=== PATIENT | female | born 1965 | race Caucasian/White ===

== ENCOUNTER 2024-11-14 06:54 | Outpatient (CLI) | payer SELFPAY ==
--- NOTE | 2024-11-14 07:00 | CT_ITS ---
PROCEDURE: LIMITED CHEST CT CARDIAC ONLY 11/14/2024 REASON FOR EXAM: ABNORMAL EKG TECHNIQUE: Procedure Code: [id number] Modality: CT Procedure: LIMITED CHEST CT CARDIAC ONLY One or more dose reduction techniques were used (e.g., Automated exposure control, adjustment of the mA and/or kV according to patient size, use of iterative reconstruction technique). RADIATION DOSE SUMMARY: CTDlvol: 12.19 mGy DLP: 219.42 mGycm COMPARISON: None. CT/Limited Chest CT Cardiac Only IMPRESSION: Limited imaging of the lungs demonstrates no acute process. No pleural effusion or pneumothorax is seen in visualized areas. No adenopathy is noted. The visualized upper abdomen demonstrates no significant abnormality. Reading Location: [id number]
--- OUTSIDE RECORDS SUMMARY | 2024-11-14 07:00 | XMS RPT_ITS | CCD ---
Author Organization [facility] Care Team Providers Care Director Of Cardiac Cath Lab Name Role Phone Ric ODD JOBS DAY WORKER.Magdy STRATTON Primary Care Provider Ric ODD JOBS DAY WORKER.Magdy STRATTON Primary Care Provider Deo Zhao DO Unavailable Ric ODD JOBS DAY WORKER.Magdy STRATTON Primary Care Provider YOUSIF CALHOUN Referring Unavailabl e RIC, MAGDY M Primary Care Unavailable RIC, MAGDY M Referring Unavailable RIC, MAGDY M Primary Care Unavailable RIC, MAGDY M Attending Unavailable RIC, MAGDY M Primary Care Unavailable RIC, MAGDY M Referring Unavailable RIC, MAGDY M Primary Care Unavailable NICOLA BARILLAS Attending Unavailable RIC, MAGDY M Primary Care Unavailable DEBORA CALVILLO Attending Unavailable RIC, MAGDY M Referring Unavailable RIC, MAGDY M Primary Care Unavailable ANGELA LICEA Referring Unavailable RIC, MAGDY M Primary Care Unavailable RIC, MAGDY M Referring Unavailable RIC, MAGDY M Primary Care Unavailable RIC, MAGDY M Referring Unavailable RIC, MAGDY M Primary Care Unavailable RIC, AMGDY M Attending Unavailable RIC, MAGDY M Primary Care Unavailable RIC, MAGDY M Referring Unavailable RIC, MAGDY M Primary Care Unavailable RIC, MAGDY M Referring Unavailable RIC, MAGDY M Primary Care Unavailable RIC, MAGDY M Referring Unavailable RIC, MAGDY M Primary Care Unavailable RIC, MAGDY M Referring Unavailable RIC, MAGDY M Primary Care Unavailable RIC, MAGDY M Primary Care Unavailable BRET BECKWITH Attending Unavailable YOUSIF CALHOUN Attending UnavailMAGDY Tao Primary Care Unavailable MAGDY LARIOS Primary Care Unavailable NATHALIA LUCIA Attending Unavailable Magdy Larios Primary Care Unavailable KATERINA GOMEZ Referring Unavailable KATERINA GOMEZ Attending Unavailable Allergies Allergy Classification Reported Allergen(s) Allergy Type Date of Onset Reaction(s) Facility (20 sources) Penicillin G; Translations: [PENICILLIN G] Drug Allergy 02-05-2013 Rash [facility] Medications Current Medications Medication Drug Class(es) Dates Sig (Normalized) Sig (Original) [id number] 200 actuat albuterol 0.09 mg/actuat metered dose inhaler (20 sources) beta2-Adrenergic Agonist Start: 03-17-2023 End: 06-10-2024 take 2 puff(s) by inhalation every four hours as needed for wheezing albuterol HFA (PROVENTIL HFA, VENTOLIN HFA) 90 mcg/actuation inhaler Indications: Wheezing Inhale 2 puffs as instructed every 4 hours as needed for wheezing/shortnes s of breath. 1 each 5 06/10/2024 Active Start: 05-06-2019 take 2 puff(s) by in halation every six hours as needed albuterol HFA (PROAIR HFA) 90 mcg/actuation inhaler 2 Puffs every 6 hours as needed. Take as directed 1 Inhaler 1 05/06/2019 Active Comment on above: 2 Puffs every 6 hour s as needed. Take as directed Inhale 2 Puffs as in structed every 4 hours as needed for wheezing/shortness of breath. cholecalciferol 0.125 mg oral tablet (20 sources) Vitamin D take 1 tablet by mouth once daily cholecalciferol (VITAMIN D3) 5,000 unit tab Take 5,000 Units by mouth once daily. Active Comment on above: Take 5,000 Units by mouth once daily. citalopram 10 mg oral tablet (20 sources) Serotonin Reuptake Inhibitor Start: 02-16-20 End: 08-08-19 take 1 tablet by mouth once daily citalopram hydrobromide (CELEXA) 10 mg tablet Indications: Anxiety TAKE 1 TABLET BY MOUTH EVERY DAY 90 tablet 1 08/07/2024 Active Start: 08-23-2022 take 1 tablet by devin th once daily citalopram hydrobromide (CELEXA) 10 mg tablet Indications: Anxiety Take 1 tablet by mouth once daily. 90 tablet 1 08/23/2022 Active Start: 04-11-2022 End: 07-19-2022 take 1 tablet by mouth once daily citalopram hydrobromide (CELEXA) 10 mg tablet Indications: Anxiety TAKE 1 TABLET BY MOUTH EVERY DAY 30 tablet 0 07/19/2022 Active Start: 04-12-2021 take 1 tablet by devin th once daily citalopram hydrobromide (CELEXA) 10 mg tablet Indications: Anxiety Take 1 tablet by mouth once daily. 90 tablet 3 04/12/2021 Active Comment on above: Take 1 tablet by devin th once daily. TAKE 1 TABLET BY DEVIN TH EVERY DAY doxycycline monohydrate 100 mg oral capsule (1 source) Tetracycline-clas s Drug Start: End: take 1 capsule by mouth twice daily doxycycline monohydrate (MONODOX) 100 mg capsule Indications: Sinobronchitis Take 1 capsule by mouth two times a day for 7 days. 14 capsule 07/14/2024 07/21/2024 Active estradiol 1 mg oral tablet (20 sources) Estrogen Start: take 1 tablet by mouth once daily estradiol (ESTRACE) 1 mg tablet Indications: Vasomotor symptoms due to menopause Take 1 tablet by mouth once daily. 90 tablet 3 09/26/2024 Active Start: 08-22-2022 End: 09-25-2023 take 1 tablet by mouth once daily estradiol (ESTRACE) 1 mg tablet Indications: Vasomotor symptoms due to menopause Take 1 tablet by mouth once daily. 90 tablet 3 09/25/2023 Active Start: 09-08-2020 End: 08-22-2022 take 2 tablets by mouth once daily Estradiol (ESTRACE) 0.5 mg tablet Take 1 mg by mouth once daily. 0 09/08/2020 08/22/2022 Discontinued (Dosage adjustment) Start: 09-08-2020 take 1 tablet by devin th once daily Estradiol (ESTRACE) 0.5 mg tablet Take 0.5 mg by mouth once daily. 0 09/08/2020 Active Comment on above: Take 0.5 mg by mouth once daily. Take 1 mg by mouth o nce daily. Take 1 tablet by devin th once daily. levothyroxine sodium 0.05 mg oral tablet (20 sources) l-Thyroxine Start: End: take 1 tablet by mouth once daily levothyroxine (SYNTHROID) 50 mcg tablet Indications: Acquired hypothyroidism TAKE 1 TABLET BY MOUTH EVERY DAY 90 tablet 3 08/07/2024 Active Start: 02-28-2022 End: 05-23-2023 take 1 tablet by mouth once daily levothyroxine (SYNTHROID) 25 mcg tablet Indications: Hypothyroidism, unspecified type Take 1 tablet by mouth once daily. 90 tablet 1 08/23/2022 05/23/2023 Discontinued Start: 05-06-2021 End: 08-30-2021 levothyroxine (SYNTHROID) 25 mcg tablet Indications: Hypothyroidism, unspecified type TAKE 1 TABLET EVERY DAY 90 tablet 1 08/30/2021 Active Comment on above: Take 1 tablet by devin th once daily. TAKE 1 TABLET EVERY DAY TAKE 1 TABLET BY DEVIN TH EVERY DAY loratadine 10 mg oral tablet (20 sources) take 1 tablet by mouth once daily as needed loratadine (CLARITIN) 10 mg tablet Take 10 mg by mouth once daily as needed. Active Comment on above: Take 10 mg by mouth once daily. Take 10 mg by mouth once daily as needed. metroNIDAZOLE 0.01 mg/mg topical gel (1 source) Nitroimidazole Antimicrobial Start: 10-27-19 End: 11-10-19 metroNIDAZOLE (METROGEL) 1 % Topical Gel Indications: Perioral dermatitis Apply to affected area once daily for 14 days. 60 g 10/26/2024 11/09/2024 Active omega-3/dha/epa/fish oil (OMEGA-3 ORAL) (20 sources) take 2000 mg by mouth once daily omega-3/dha/epa/fish oil (OMEGA-3 ORAL) Take 2,000 mg by mouth once daily. Active take 2000 mg by mouth once daily omega-3/dha/epa/fish oil (OMEGA-3 ORAL) Take 2,000 mg by mouth once daily. 0 Active Comment on above: Take 2,000 mg by devin th once daily. polymyxin b [id number] unt/ml / trimethoprim 1 mg/ml ophthalmic solution (1 source) Dihydrofolate Reductase Inhibitor Antibacterial, Polymyxin-class Antibacterial Start: 07-15-19 End: 07-20-19 take 1 drop(s) into the eye(s) three times daily polymyxin B-trimethoprim (POLYTRIM) 10,000 unit- 1 mg/mL ophthalmic solution Indications: Acute conjunctivitis of right eye, unspecified acute conjunctivitis type Use 1 drop in both eyes three times a day for 5 days. 5 mL 07/14/2024 07/19/2024 Active predniSONE 20 mg oral tablet (1 source) Start: 07-15-19 End: 07-20-19 take 1 tablet by mouth twice daily predniSONE (DELTASONE) 20 mg tablet Indications: Sinobronchitis Take 1 tablet by mouth two times a day for 5 days. 10 tablet 07/14/2024 07/19/2024 Active Completed/Discontinued Medications Medication Drug Class(es) Dates Sig (Normalized) Sig (Original) ascorbic acid 250 mg oral tablet (18 sources) Vitamin C End: 05-23-2023 take 1 tablet by mouth once daily ascorbic acid, vitamin C, (VITAMIN C) 250 mg tablet Take 250 mg by mouth once daily. 0 05/23/2023 Discontinued Comment on above: Take 250 mg by mouth once daily. ketorolac tromethamine 4 mg/ml ophthalmic solution (20 sources) Nonsteroidal Anti-inflammatory Drug, Cyclooxygenase Inhibitor Start: 09-28-2020 End: 05-23-2023 keTORolac Tromethamine (ACLUAR LS) 0.4 % drop Indications: Irritation of left eye Use 1 Drop in the left eye every 6 hours as needed. 5 mL 0 09/28/2020 05/23/2023 Discontinued Start: 09-28-2020 keTORolac Trom ethamine (ACLUAR LS) 0.4 % drop Indications: Irritation of left eye Use 1 Drop in the left eye every 6 hours as needed. 5 mL 0 09/28/2020 Active Comment on above: Use 1 Drop in the le ft eye every 6 hours as needed. Multivitamin capsule (18 sources) End: 05-23-2023 take 1 capsule by mouth once daily Multivitamin capsule Take 1 capsule by mouth once daily. 0 05/23/2023 Discontinued take 1 capsule by mouth once neptali ly Multivitamin capsule Take 1 capsule by mouth once daily. 0 Active Comment on above: Take 1 capsule by mo ut once daily. Problems Active Problems Problem Classification Problem Date Documented Da te Episodic/Chronic Anxiety disorders (20 sources) Anxiety; Translations: [Anxiety disorder, unspecified] Onset: 04-11-2021 04-11-2021 Chronic Malaise and fatigue (20 sources) Fatigue; Translations: [Chronic fatigue, unspecified] Onset: 08-22-2022 Chronic Menopausal disorders (20 sources) Menopausal flushing; Translations: [Menopausal and female climacteric states] Onset: 08-22-2022 Chronic Mood disorders (1 source) Depressive disorder; Translations: [Depression, unspecified depression type] 06-10-2024 Chronic Nutritional deficiencies (2 sources) Vitamin D deficiency; Translations: [Vitamin D deficiency, unspecified] Onset: 06-08-2024 05-30-2024 Chronic Other inflammatory condition of skin (1 source) Perioral dermatitis; Translations: [Perioral dermatitis] 10-26-2024 Chronic Other inflammatory condition of skin (1 source) Perioral dermatitis; Translations: [Perioral dermatitis] Onset: 10-26-2024 Chronic Other lower respiratory disease (1 source) Wheezing; Translations: [Wheezing] 06-10-2024 Episodic Other lower respiratory disease (7 sources) Dyspnea; Translations: [Shortness of breath] 09-16-2024 Episodic Other lower respiratory disease (1 source) Shortness of breath; Translations: [SOB (shortness of breath)] Onset: 09-16-2024 Episodic Other non-traumatic joint disorders (1 source) Bilateral pain of joint of hands; Translations: [Pain in joints of right hand] 06-10-2024 Episodic Other screening for suspected conditions (not mental disorders or infectious disease) (20 sources) Serum creatinine raised; Translations: [Other specified abnormal findings of blood chemistry] Onset: 01-31-2024 Episodic Other upper respiratory infections (2 sources) Chronic sinusitis; Translations: [Chronic sinusitis, unspecified] Onset: 07-14-2024 07-14-2024 Chronic Residual codes; unclassified (2 sources) Family history of breast cancer; Translations: [Family history of malignant neoplasm of breast] 05-23-2023 Episodic Thyroid disorders (20 sources) Hypothyroidism; Translations: [Hypothyroidism, unspecified] Onset: 08-22-2022 Chronic Past or Other Problems Problem Classification Problem Date Documented Date Episodic/Chronic Cardiac dysrhythmias (20 sources) Palpitations; Translations: [Palpitations] Onset: 01-31-2024 Episodic Chronic obstructive pulmonary disease and bronchiectasis (1 source) Bronchitis, not specified as acute or chronic; Translations: [Sinobronchitis] Onset: 07-14-2024 Episodic Conditions associated with dizziness or vertigo (20 sources) Lightheadedness; Translations: [Dizziness and giddiness] Onset: 02-04-2016 02-04-2016 Episodic Inflammation; infection of eye (except that caused by tuberculosis or sexually transmitteddisease) (2 sources) Acute conjunctivitis of right eye; Translations: [Unspecified acute conjunctivitis, right eye] Onset: 07-14-2024 07-14-2024 Episodic Other connective tissue disease (20 sources) Left rotator cuff syndrome; Translations: [Unspecified rotator cuff tear or rupture of left shoulder, not specified as traumatic] Onset: 12-16-2014 Resolved: 08-22-2022 12-16-2014 Episodic Other lower respiratory disease (1 source) Wheezing; Translations: [Wheezing] Onset: 06-10-2024 Episodic Other non-traumatic joint disorders (20 sources) Shoulder pain; Translations: [Pain in left shoulder] Onset: 12-16-2014 12-16-2014 Episodic Other non-traumatic joint disorders (20 sources) Pain in left shoulder; Translations: [Pain in joint, shoulder region] Onset: 12-16-2014 Resolved: 08-22-2022 12-16-2014 Episodic Other non-traumatic joint disorders (1 source) Pain in joints of right hand; Translations: [Arthralgia of both hands] Onset: 06-10-2024 Episodic Other non-traumatic joint disorders (1 source) Pain in joints of left hand; Translations: [Arthralgia of both hands] Onset: 06-10-2024 Episodic Residual codes; unclassified (1 source) Family history of malignant neoplasm of breast; Translations: [Family history of breast cancer] Onset: 02-28-2024 Episodic Syncope (20 sources) Syncope; Translations: [Syncope and collapse] Onset: 02-02-2023 02-02-2023 Episodic Unclassified (2 sources) Patient encounter status 06-10-2024 Results Test Name Value Interpretation Reference Range Facility OV 10-26-2024 CNOV Office Visit ([facility] ) GAYLE CHRISTIAN ([id number]) 1965 F Date Time Provider Department 10/26/24 2:25 PM NATHALIA LUCIA During your visit today, we recorded the following information about you: Temperature Pulse Blood pressure Weight 97.4 degrees 70/minute 127/86 80.2 kg Nathalia Lucia PA-C 10/26/2024 2:56 PM Addendum Overview Stop everything, but natural soap/water. Apply light layer of Metrogel once daily at bedtime. Follow up with Dermatology What is perioral (periorificial) dermatitis? What does it look like? Perioral (periorificial) dermatitis is a red rash that circles your mouth. Your skin can be scaly, dry and flaky with swollen, inflamed bumps called papules. It is one of many types of dermatitis. Perioral dermatitis can look like acne and is often mistaken for it. Some people report that perioral dermatitis itches or gonzalez. Sometimes it spreads up to the nose and eyes and, very rarely, the genitals. In the word perioral, ?luis? means ?around? and ?oral? means ?mouth.? The word literally means ?around the mouth.? In the word periorificial, ?orifical? means orifice or ?an opening.? ?Around an opening? is the meaning of periorificial. The two words refer to the same condition. What are the types of perioral dermatitis? There is typical perioral dermatitis, and then there is granulomatous perioral dermatitis. Granulomatous is not a type perioral dermatitis, but an irregular version of it. If you have granulomatous dermatitis then you?ll see yellowish bumps instead of red ones. Children are more prone to have granulomatous dermatitis than adults. Where does perioral (periorificial) dermatitis most commonly occur? Perioral dermatitis is easily recognizable by the location of the rash around your mouth. It can also go on your eyelids or around your eyes and nose. Rarely, it will appear on your genitals. Rarer still, it may move to the ears, neck, scalp, trunk and extremities. Can perioral dermatitis become rosacea? Perioral dermatitis can return after treatment. This happens even when it was successfully treated. Many cases that return can turn into rosacea, a skin condition that causes red papules in the middle of your face, including on your nose. Who is at risk of getting perioral dermatitis? You?re most at risk if you?re a woman between 25 and 45 who uses topical steroids, face creams and more (see the Causes section). However, children and men can develop perioral dermatitis, too. Is perioral dermatitis contagious? No. No type of dermatitis is contagious. It can?t be spread to another person. Is perioral dermatitis a fungal infection? Overuse of topical steroids is the most likely cause of perioral dermatitis. However, there are a number of theories and the exact cause is yet to be determined. One theory is that perioral dermatitis is caused by chaka albicans. Chaka albicans is a yeast, which is a type of fungus. Is perioral dermatitis (periorificial) a bacterial infection? The exact cause of perioral dermatitis is unknown, but there are many theories. One theory is that this skin condition is caused by follicular fusiform, a type of bacteria. Symptoms and Causes What causes perioral dermatitis? The exact cause is to be determined, but experts have noted 13 possible causes of perioral dermatitis: Steroids: Topical steroid creams. Inhaled prescription steroid sprays. Lifestyle choices: Moisturizers and heavy face creams. Fluorinated toothpaste. Gum chewing. Dental fillings. Other: Hormonal changes (or oral contraceptives). Dysfunction of the epidermal barrier. Problems with the immune system. Altered cutaneous microflora. Bacteria - follicular fusiform. Chaka albicans. Demodex mites. What are the symptoms of perioral dermatitis? The primary symptom of perioral dermatitis is a red rash around your mouth. The rash may be scaly or dry and flaky. Often there are inflamed bumps that are called papules. Additionally, you may develop vesicles (clear fluid-filled bumps) or pustules (white fluid-filled bumps). Although it is usually found around the mouth, perioral dermatitis can also move to your eyelids, or around your eyes and nose. It can also appear on your genitals, scalp, ears, neck, extremities and trunk. The rash can cause an itching or burning sensation. Some people experience conjunctivitis (pink eye) when they have perioral dermatitis. If you have pink eye then your healthcare provider may refer you to an eye doctor (an hand cigar making supervisor). Can perioral dermatitis be caused by stress? Yes. Stress can sometimes cause some types of dermatitis. Does perioral dermatitis hurt? Sometimes it itches, and sometimes it gonzalez. This is not true for all people. What aggravates perioral dermatitis? Triggers for perioral dermatitis may differ f (more content not included)... Normal [facility] T4 Free SerPl-mCncon 025 Free T4 [Mass/Vol] 1.1 ng/dL Normal 0.9-1.7 [facility] Comment on above: Order Comment: Jen calixto Type: BLOOD SPECIMEN Ordering Facility: [facility] Address: [address] [place] [address] Performed By: #### 3 024-7 #### [facility] CLIA [id number] [address] [place] [address] [place] TSH SerPl-aCncon 09-27-2024 TSH Qn 1.430 m[IU]/L Normal 0.270-4.200 [facility] Comment on above: Order Comment: Jen calixto Type: BLOOD SPECIMEN Ordering Facility: [facility] Address: [address] [place] [address] Performed By: #### 2 [id number], 72972-5, 3016-3 #### [facility] CLIA [id number] [address] [place] [address] [place] US KIDNEY/BLADDERon 09-28-19 25 US KIDNEY/BLADDER * * *Final Report* * * DATE OF EXAM: Sep 27 2024 9:22AM LDU 1055 - US KIDNEY/BLADDER / PROCEDURE REASON: Elevated serum creatinine * * * * Physician Interpretation * * * * EXAMINATION: RENAL ULTRASOUND CLINICAL HISTORY: Elevated creatinine. TECHNIQUE: Sonography of the kidneys and urinary bladder was performed. Images were obtained and stored in a permanent archive. MQ: UR_1 COMPARISON: None RESULT: Right Kidney: -Renal length: 10.1 cm -Parenchyma: Normal parenchymal echogenicity. Normal parenchymal thickness. -Collecting system: No hydronephrosis. -Calculus: No echogenic, shadowing calculus. -Lesion: None. Left Kidney: -Renal length: 10.0 cm -Parenchyma: Normal parenchymal echogenicity. Normal parenchymal thickness. -Collecting system: No hydronephrosis. -Calculus: No echogenic, shadowing calculus. -Lesion: None. Bladder: Normal sonographic appearance. IMPRESSION: Normal sonographic appearance of kidneys and bladder. 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: [employer] Transcribe Date/Time: Sep 29 2024 8:53A Dictated by : ANIL BELLA MD This examination was interpreted and the report reviewed and electronically signed by: ANIL BELLA MD on Sep 29 2024 8:55AM EST [id number] Normal [facility] CNOVon 09-26-2024 CNOV Office Visit (ENDMED ) BERNICEGAYLE L ([id number]) 1965 F Date Time Provider Department 09/26/24 10:20 AM YOUSIF CALHOUN During your visit today, we recorded the following information about you: Pulse Respiration Blood pressure Weight 65/minute 16/minute 116/74 77.7 kg Height 1.702 m Yousif Calhoun MD 09/26/2024 10:37 AM Signed 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 Is on ERT for severe menopausal symptoms, started in 2019. Still having hot flashes. No alcohol use, ex-smoker. Has family history of breast cancer. Has stopped taking a vitamin D supplement. Has had interval weight gain. Is exercising frequently. Does one 24-hour fast per week. Current Outpatient Medications on File Prior to Visit Medication Sig levothyroxine (SYNTHROID) 50 mcg tablet TAKE 1 TABLET BY MOUTH EVERY DAY citalopram hydrobromide (CELEXA) 10 mg tablet TAKE 1 TABLET BY MOUTH EVERY DAY albuterol HFA (PROVENTIL HFA, VENTOLIN HFA) 90 mcg/actuation inhaler Inhale 2 puffs as instructed every 4 hours as needed for wheezing/shortness of breath. estradiol (ESTRACE) 1 mg tablet Take 1 tablet by mouth once daily. ALLERGIES Allergen Reactions Penicillin G Rash itching PAST MEDICAL HISTORY Diagnosis Date Pain in left shoulder 12/16/2014 Rotator cuff syndrome of left shoulder 12/16/2014 PAST SURGICAL HISTORY Procedure Laterality Date APPENDECTOMY 1984 COLONOSCOPY 08/17/2018 repeat 10 years HYSTERECTOMY HX 09/2013 partial FAMILY HISTORY Problem Relation Age of Onset Hyperlipidemia Mother other (depression/anxiety) Mother Breast Cancer Mother 71 Common hereditary cancer panel negative Arthritis Father Kidney Disease Father other (alcoholism) Father Hypertension Brother other (heart disease) Brother other (alcoholism) Brother Breast Cancer Maternal Grandmother 70 - 79 also Great GMA Stroke Maternal Grandmother 80 Pancreatic Cancer Paternal Aunt 60 Breast Cancer Other 80 Social History Tobacco Use Smoking status: Former Types: Cigarettes Start date: 02/06/2004 Smokeless tobacco: Never Vaping Use Vaping status: Never Used Substance Use Topics Alcohol use: Not Currently Drug use: No Answers submitted by the patient for this visit: Core Review of Systems (Submitted on 09/19/2024) Fever: No Night sweats: Yes Recent unintentional weight change: Yes Nasal Congestion: No Hearing Loss: No Vision Disturbance: Yes A cough: No Difficulty Breathing?: Yes Chest pain: No Irregular heartbeat: Yes Leg Swelling: No Nausea: No Diarrhea: No Black tarry stools: No Difficulty Urinating?: No Awaken at Night More Than Once to Urinate?: No Joint pain or stiffness: Yes Muscle aches: Yes Leg or Foot Discomfort at Night?: Yes A rash: No Dizziness: Yes Headaches: No Memory Loss: No Seizures: No BP 116/74 Pulse 65 Resp 16 Ht 170.2 cm (5' 7.01) Wt 77.7 kg (171 lb 4.8 oz) SpO2 97% BMI 26.82 kg/m? General appearance: Well-appearing overweight female, alert, in no acute distress, well-hydrated, well nourished. BP normal, pulse regular. Weight up 15 pounds since 09/2023. Height stable. Skin: Skin color, texture, turgor normal, no suspicious rashes or lesions Head: normocephalic, no masses, lesions, tenderness or abnormalities Eyes: Anicteric sclera. Pupils are equally round. Extraocular movements are intact. Ears: not examined Nose/Sinuses: Nares normal. No drainage or sinus tenderness. Oropharynx: Lips, mucosa, and tongue normal, teeth and gums not examined. Neck: Supple, no adenopathy; no palpable thyroid enlargement. Lungs: Breathing unlabored. Heart: RRR. No ectopy Abdomen: deferred Extremities: No deformities, edema, skin discoloration, clubbing or cyanosis. Good capillary refill. Musculoskeletal: Spine range of motion not tested. Muscular strength intact, No joint swelling, deformity, or tenderness Peripheral pulses: Normal Neuro: Gait normal. Sensation grossly intact. Latest Reference Range AND Units 06/08/24 08:14 07/23/24 14:09 Sodium 136 - 144 mmol/L 141 140 Potassium 3.7 - 5.1 mmol/L 4.4 3.7 Chloride 98 - 107 mmol/L 104 103 CO2 22 - 30 mmol/L 28 27 BUN 7 - 21 mg/dL 17 17 Creatinine 0.58 - 0.96 mg/dL 1.10 (H) 1.02 (H) Glucose 74 - 99 mg/dL 100 (H) 74 Protein, Total 6.3 - 8.0 g/dL 6.6 Calcium 8.5 - 10.2 mg/dL 9.6 9.6 Phosphorus 2.7 - 4.8 mg/dL 2.9 Albumin 3.9 - 4.9 g/dL 4.1 4.0 Bilirubin, Total 0.2 - 1.3 mg/dL 0.8 Alkaline Phosphatase 34 - 123 U/L 106 ALT 7 - 38 U/L 20 AST 13 - 35 U/L 20 Anion Gap 8 - 15 mmol/L 9 10 eGFR >=60 mL/min/1.73m? 59 (L) 65 CRP <0.9 mg/dL Cholesterol, Total <200 mg/dL 258 (H) Triglyceride <150 mg/dL 101 HDL Cholesterol >39 mg/dL 80 LDL Cholesterol, Calculated <100 mg/dL 15 (more content not included)... Normal [facility] 09-23-2024 CNPN Telephone (AGINTMLW) TAWNYAGAYLE LEUNG ([id number]) 1965 F Date Time Provider Department 09/23/24 MAGDY LARIOS AGINTMLW During your visit today, we recorded the following information about you: Lalitha Hall LPN 09/23/2024 3:29 PM Signed Pt left message that she called [facility] to scheduled her Coronary Calcium score but was not able. Per pt she was told that office needs to send fax to them first before they can schedule the Coronary Calcium Score. ENZO Zambrano Katherine 09/23/2024 3:42 PM Signed Order faxed to [facility] (2nd time). Patient notified that order has been faxed that she can call and schedule. Briseyda Caldwell MA 10/14/2024 3:05 PM Signed Patient left message stating [facility] still has not received order and that they told her to have us call [phone]. Called and spoke with Alistair who states order needs faxed to [phone] and then they will call her to schedule. States patient will not qualify for the bill as you have to be over 60 for that so she will need to pay out of pocket. Order and facesheet have been faxed. Briseyda Rebolledo MA Allergies As of Date: 09/23/2024 Noted Allergy Reaction PENICILLIN G 02/05/2013 2 - Rash Comments: itching Date Reviewed: 09/16/2024 Reviewed by: Magdy Larios, ODD JOBS DAY WORKER.SUPPLY CHAIN ANALYST - Fully Assessed Reason for Visit: Scheduling [3921] Cmt: Coronary Calcium scoring Prescriptions as of 10/14/2024 - estradiol (ESTRACE) 1 mg tablet Take 1 tablet by mouth once daily. - levothyroxine (SYNTHROID) 50 mcg tablet TAKE 1 TABLET BY MOUTH EVERY DAY - citalopram hydrobromide (CELEXA) 10 mg tablet TAKE 1 TABLET BY MOUTH EVERY DAY - albuterol HFA (PROVENTIL HFA, VENTOLIN HFA) 90 mcg/actuation inhaler Inhale 2 puffs as instructed every 4 hours as needed for wheezing/shortness of breath. Problem List As Of Date 09/23/2024 Noted Resolved Pain in left shoulder [M25.512] 12/16/2014 08/22/2022 Rotator cuff syndrome of left shoulder [M75.102]12/16/2014 08/22/2022 Anxiety [F41.9] 04/11/2021 Hypothyroidism [E03.9] 08/22/2022 Vasomotor symptoms due to menopause [N95.1] 08/22/2022 Fatigue [R53.82] 08/22/2022 Syncope [R55] 02/02/2023 Palpitations [R00.2] 01/31/2024 Encounter Status:Closed by LALITHA HALL on 09/23/24 Normal [facility] LUNG DIFFUSION CAPACITY (LOBITO O)on 09-18-2024 LUNG DIFFUSION CAPACITY (DLCO) [place] [id number] Test Date: 2024-09-18 Pat Name: GAYLE CHRISTIAN Department: Room: Gender: Female Machine Ceramic Coater: : 1965 Requested By: Order Number: [id number] Reading MD: Otto Rudolph MD Interpretive Statements Current ATS/ERS acceptability and repeatability standards for PRE/POST spirometry met. Start of test and EOFE criteria met. Current ATS/ERS acceptability and repeatability standards for DLCO met with 2 acceptable maneuvers. Current ATS/ERS acceptability and repeatability standards for lung volumes met. 2 puffs Albuterol (180 mcg) delivered by MDI via holding chamber. IMPRESSION: ID: [id number] Name: GAYLE CHRISTIAN Race: Other Ht: 67.00 in Wt: 171.00 lbs Age: 58 Gender: Female : 1965 Dx: Shortness of breath Smoking Hx: Non-smoker Doctor: MAGDY LARIOS Test Date: 09/18/2024 Site: Tee: Delfina Eng PRE-BRONCH POST-BRONCH Jacey LLN Pred ULN %Pred ZScore Jacey %Pred %Chg ZScore SPIROMETRY FVC 3.39 2.53 3.45 4.40 98 -0.11 3.67 106 8 0.39 FEV1 2.38 1.99 2.74 3.46 86 -0.81 2.71 98 12 -0.06 FEV1/FVC 0.70 0.68 0.80 0.89 88 -1.36 0.74 92 5 -0.84 FEFMax 7.36 5.05 6.93 8.80 106 0.38 8.50 122 15 1.38 FEF50 2.05 2.05 3.66 5.27 55 -1.65 3.08 84 50 -0.59 FIF50 3.76 4.88 29 FEF50/FIF50 0.54 90-100 0.63 15 FIVC 3.08 2.99 -2 YCW85-18 1.47 1.28 2.44 3.97 60 -1.35 2.48 101 69 0.05 ExpiredTime 8.65 9.08 4 TimeToFEFMax 0.06 0.07 12 ASIM 0.08 0.09 23 VolExtrap% 2 3 14 LUNG VOLUMES FRC(N2) 2.32 2.16 3.04 4.15 76 -1.31 ERV 1.36 1.15 118 RV(N2) 1.35 1.11 1.84 2.78 73 -1.05 SVC 3.41 2.53 3.45 4.40 98 -0.06 IC 2.05 2.30 89 TLC(N2) 4.68 4.62 5.70 6.89 82 -1.56 RV/TLC(N2) 29 21 32 43 91 -0.42 LUNG DIFFUSION DLCOunc 25.05 16.63 21.56 27.53 116 1.00 DLCOStdPB 24.68 16.63 21.56 27.53 114 0.90 VA 5.37 4.25 5.23 6.30 102 0.22 Kco 4.67 3.20 4.13 5.17 113 0.88 Comments: Current ATS/ERS acceptability and repeatability standards for PRE/POST spirometry met. Start of test and EOFE criteria met. Current ATS/ERS acceptability and repeatability standards for DLCO met with 2 acceptable maneuvers. Current ATS/ERS acceptability and repeatability standards for lung volumes met. 2 puffs Albuterol (180 mcg) delivered by MDI via holding chamber. Normal [facility] LUNG VOLUMESon 09-18-2024 LUNG VOLUMES [facility] [address], [place] [address] Test Date: 2024-09-18 Pat Name: GAYLE CHRISTIAN Department: Room: Gender: Female Machine Ceramic Coater: : 1965 Requested By: Order Number: [id number] Reading MD: Otto Rudolph MD Interpretive Statements Current ATS/ERS acceptability and repeatability standards for PRE/POST spirometry met. Start of test and EOFE criteria met. Current ATS/ERS acceptability and repeatability standards for DLCO met with 2 acceptable maneuvers. Current ATS/ERS acceptability and repeatability standards for lung volumes met. 2 puffs Albuterol (180 mcg) delivered by MDI via holding chamber. IMPRESSION: ID: [id number] Name: GAYLE CHRISTIAN Race: Other Ht: 67.00 in Wt: 171.00 lbs Age: 58 Gender: Female : 1965 Dx: Shortness of breath Smoking Hx: Non-smoker Doctor: MAGDY LARIOS Test Date: 09/18/2024 Site: Tech: Delfina Eng PRE-BRONCH POST-BRONCH Jacey LLN Pred ULN %Pred ZScore Jacey %Pred %Chg ZScore SPIROMETRY FVC 3.39 2.53 3.45 4.40 98 -0.11 3.67 106 8 0.39 FEV1 2.38 1.99 2.74 3.46 86 -0.81 2.71 98 12 -0.06 FEV1/FVC 0.70 0.68 0.80 0.89 88 -1.36 0.74 92 5 -0.84 FEFMax 7.36 5.05 6.93 8.80 106 0.38 8.50 122 15 1.38 FEF50 2.05 2.05 3.66 5.27 55 -1.65 3.08 84 50 -0.59 FIF50 3.76 4.88 29 FEF50/FIF50 0.54 90-100 0.63 15 FIVC 3.08 2.99 -2 SED93-36 1.47 1.28 2.44 3.97 60 -1.35 2.48 101 69 0.05 ExpiredTime 8.65 9.08 4 TimeToFEFMax 0.06 0.07 12 ASIM 0.08 0.09 23 VolExtrap% 2 3 14 LUNG VOLUMES FRC(N2) 2.32 2.16 3.04 4.15 76 -1.31 ERV 1.36 1.15 118 RV(N2) 1.35 1.11 1.84 2.78 73 -1.05 SVC 3.41 2.53 3.45 4.40 98 -0.06 IC 2.05 2.30 89 TLC(N2) 4.68 4.62 5.70 6.89 82 -1.56 RV/TLC(N2) 29 21 32 43 91 -0.42 LUNG DIFFUSION DLCOunc 25.05 16.63 21.56 27.53 116 1.00 DLCOStdPB 24.68 16.63 21.56 27.53 114 0.90 VA 5.37 4.25 5.23 6.30 102 0.22 Kco 4.67 3.20 4.13 5.17 113 0.88 Comments: Current ATS/ERS acceptability and repeatability standards for PRE/POST spirometry met. Start of test and EOFE criteria met. Current ATS/ERS acceptability and repeatability standards for DLCO met with 2 acceptable maneuvers. Current ATS/ERS acceptability and repeatability standards for lung volumes met. 2 puffs Albuterol (180 mcg) delivered by MDI via holding chamber. Normal [facility] SPIROMETRY - BASELINE AND PO ST DILATORon 09-18-2024 SPIROMETRY - BASELINE AND POST DILATOR [facility] [address], [place] [address] Test Date: 2024-09-18 Pat Name: GAYLE CHRISTIAN Department: Room: Gender: Female Machine Ceramic Coater: : 1965 Requested By: Order Number: [id number] Reading MD: Otto Rudolph MD Interpretive Statements Current ATS/ERS acceptability and repeatability standards for PRE/POST spirometry met. Start of test and EOFE criteria met. Current ATS/ERS acceptability and repeatability standards for DLCO met with 2 acceptable maneuvers. Current ATS/ERS acceptability and repeatability standards for lung volumes met. 2 puffs Albuterol (180 mcg) delivered by MDI via holding chamber. IMPRESSION: ID: [id number] Name: GAYLE CHRISTIAN Race: Other Ht: 67.00 in Wt: 171.00 lbs Age: 58 Gender: Female : 1965 Dx: Shortness of breath Smoking Hx: Non-smoker Doctor: MAGDY LARIOS Test Date: 09/18/2024 Site: Tech: Delfina Eng PRE-BRONCH POST-BRONCH Jacey LLN Pred ULN %Pred ZScore Jacey %Pred %Chg ZScore SPIROMETRY FVC 3.39 2.53 3.45 4.40 98 -0.11 3.67 106 8 0.39 FEV1 2.38 1.99 2.74 3.46 86 -0.81 2.71 98 12 -0.06 FEV1/FVC 0.70 0.68 0.80 0.89 88 -1.36 0.74 92 5 -0.84 FEFMax 7.36 5.05 6.93 8.80 106 0.38 8.50 122 15 1.38 FEF50 2.05 2.05 3.66 5.27 55 -1.65 3.08 84 50 -0.59 FIF50 3.76 4.88 29 FEF50/FIF50 0.54 90-100 0.63 15 FIVC 3.08 2.99 -2 FVY60-17 1.47 1.28 2.44 3.97 60 -1.35 2.48 101 69 0.05 ExpiredTime 8.65 9.08 4 TimeToFEFMax 0.06 0.07 12 SAIM 0.08 0.09 23 VolExtrap% 2 3 14 LUNG VOLUMES FRC(N2) 2.32 2.16 3.04 4.15 76 -1.31 ERV 1.36 1.15 118 RV(N2) 1.35 1.11 1.84 2.78 73 -1.05 SVC 3.41 2.53 3.45 4.40 98 -0.06 IC 2.05 2.30 89 TLC(N2) 4.68 4.62 5.70 6.89 82 -1.56 RV/TLC(N2) 29 21 32 43 91 -0.42 LUNG DIFFUSION DLCOunc 25.05 16.63 21.56 27.53 116 1.00 DLCOStdPB 24.68 16.63 21.56 27.53 114 0.90 VA 5.37 4.25 5.23 6.30 102 0.22 Kco 4.67 3.20 4.13 5.17 113 0.88 Comments: Current ATS/ERS acceptability and repeatability standards for PRE/POST spirometry met. Start of test and EOFE criteria met. Current ATS/ERS acceptability and repeatability standards for DLCO met with 2 acceptable maneuvers. Current ATS/ERS acceptability and repeatability standards for lung volumes met. 2 puffs Albuterol (180 mcg) delivered by MDI via holding chamber. FVC_PRE (L) : 3.39 L FVC_POST (L) : 3.67 L FVC_PRED (L) : 3.45 L FVC_LLN (L) : 2.53 L FVC_ULN (L) : 4.40 L FEV1_PRE (L) : 2.38 L FEV1_POST (L) : 2.71 L FEV1_PRED (L) : 2.74 L FEV1_LLN (L) : 1.99 L FEV1_ULN (L) : 3.46 L FEV1/FVC_PRE (%) : 70 % FEV1/FVC_POST (%) : 74 % FEV1/FVC_PRED (%) : 80 % FEV1/FVC_LLN (%) : 68 % HRE48_ZKU (L/S) : 4.82 L/S GQY57_YLDV (L/S) : 6.59 L/S MIQ77_NDC (L/S) : 0.47 L/S MVH92_PHHG (L/S) : 0.97 L/S ATG35_XCAY (L/S) : 0.77 L/S UNG62_RXN (L/S) : 0.33 L/S LUF33_BNW (L/S) : 1.69 L/S AVL72-98%_PRE (L/S) : 1.47 L/S PXI98-81%_POST (L/S) : 2.48 L/S LVC65-47%_PRED (L/S) : 2.44 L/S BWY47-20%_LLN (L/S) : 1.28 L/S PEF_PRE (L/S) : 7.36 L/S PEF_POST (L/S) : 8.50 L/S PEFMAX_LLN (L/S) : 5.05 L/S PEFMAX_ULN (L/S) : 8.80 L/S VC BOX (L) : 3.41 L SVC_PRED (L) : 3.45 L/S SVC_LLN (L) : 2.53 L/S SVC_ULN (L/S) : 4.40 L/S IC BOX (L) : 2.05 L IC_PRED (L) : 2.30 L/S ERV BOX (L) : 1.36 L ERV_PREDICTED (L) : 1.15 L/S DLCO (ML/MIN/MMHG) : 25.05 ml/min/mmHg DLCO_PRED (ML/MIN/MMHG) : 21.56 ml/min/mmHg DLCO_LLN(ML/MIN/MMHG) : 16.63 ml/min/mmHg DLCO_ULN (ML/MIN/MMHG) : 27.53 ml/min/mmHg FET_PRE (S) : 8.65 S FET_POST (S) : 9.08 S FRC GAS (L) : 2.32 L RV GAS (L) : 1.35 L RV_N2_PRED (L) : 1.84 L TLC GAS (L) : 4.68 L TLC_N2_PRED (L) : 5.70 L RV/TLC GAS (%) : 29 % RV_TLC_N2_PRED (%) : 32 L VA (L) : 5.37 L VA_PRD (L) : 5.23 L DLCO/VA (ML/MIN/MMHG/L) : 0.05 ml/min/mmHg/L DLCO_VA_PRED (L) : 0.04 ml/min/mmHg/L DLCOCOR_PRED (ML/MIN/MMHG) : 21.56 ml/min/mmHg Normal [facility] CNOVon 09-16-2024 CNOV Office Visit (AGINTMLW) GAYLE CHRISTIAN ([id number]) 1965 F Date Time Provider Department 09/16/24 11:00 AM MAGDY LARIOS During your visit today, we recorded the following information about you: Pulse Respiration Blood pressure Weight 50/minute 16/minute 104/60 77.8 kg Height 1.702 m Magdy Larios, ODD JOBS DAY WORKER.SUPPLY CHAIN ANALYST 09/16/2024 1:44 PM Signed Subjective Gayle Christian is a 58 year old female here today for follow up on her creatinine. PMH hypothyroidism, anxiety, palpitations. Dyspnea: - Dyspnea on exertion, particularly during running. - Previously able to run 30 minutes without stopping; now needs to stop at 18-24 minutes. - Requires intermittent walking during runs to catch breath. - Denies cough. - Reports multiple COVID-19 infections, believes each infection has worsened her breathing. - Has a history of viral-induced asthma; uses an inhaler PRN but reports it causes a burning sensation. - Former smoker, quit in 2005; smoked from high school until age 32. - No alcohol consumption for 7 years. Menopause: - Experiencing severe hot flashes with associated headaches, occurring in double digits daily. - On estradiol therapy with minimal relief. - Reports weight gain and difficulty losing weight despite regular exercise and a controlled diet. - Exercises twice daily, 45 minutes each session. - Drinks 0.5-1 gallon of water daily. - Reports heart palpitations. - Has an upcoming appointment with Dr. Nice next . CKD: - Chronic elevated creatinine levels for 3 years. - Recent GFR was 65 mL/min/1.73 m?. - Denies regular use of NSAIDs; recently took ibuprofen for foot pain. Arthritis: - Reports inability to make a tight fist and enlarged knuckles. - Recent lab work showed normal inflammation markers. Urinary Symptoms: - Reports bladder pain described as pressure pain x10 days, onset after using a hot tub. - Denies dysuria, hematuria, vaginal bleeding, fevers, or chills. - Reports flank pain, uncertain if related to exercise or another cause. Foot Pain: - Severe foot pain, unable to walk comfortably. - Has an appointment with a road inspector next . Constipation: - Chronic constipation, managed with magnesium supplements and increased water intake. ALLERGIES Allergen Reactions Penicillin G Rash itching Current Outpatient Medications Medication Sig Dispense Refill levothyroxine (SYNTHROID) 50 mcg tablet TAKE 1 TABLET BY MOUTH EVERY DAY 90 tablet 3 citalopram hydrobromide (CELEXA) 10 mg tablet TAKE 1 TABLET BY MOUTH EVERY DAY 90 tablet 1 albuterol HFA (PROVENTIL HFA, VENTOLIN HFA) 90 mcg/actuation inhaler Inhale 2 puffs as instructed every 4 hours as needed for wheezing/shortness of breath. 1 each 5 estradiol (ESTRACE) 1 mg tablet Take 1 tablet by mouth once daily. 90 tablet 3 omega-3/dha/epa/fish oil (OMEGA-3 ORAL) Take 2,000 mg by mouth once daily. cholecalciferol (VITAMIN D3) 5,000 unit tab Take 5,000 Units by mouth once daily. (Patient not taking: Reported on 09/16/2024) loratadine (CLARITIN) 10 mg tablet Take 10 mg by mouth once daily as needed. (Patient not taking: Reported on 09/16/2024) No current facility-administered medications for this visit. ACTIVE PROBLEM LIST Anxiety Hypothyroidism Vasomotor Symptoms Due to Menopause Fatigue Syncope Palpitations PAST MEDICAL HISTORY Diagnosis Date Pain in left shoulder 12/16/2014 Rotator cuff syndrome of left shoulder 12/16/2014 PAST SURGICAL HISTORY Procedure Laterality Date APPENDECTOMY 1984 COLONOSCOPY 08/17/2018 repeat 10 years HYSTERECTOMY HX 09/2013 partial Social History Tobacco Use Smoking status: Former Types: Cigarettes Start date: 02/06/2004 Smokeless tobacco: Never Vaping Use Vaping status: Never Used Substance Use Topics Alcohol use: Not Currently Drug use: No Family History Problem Relation Age of Onset Hyperlipidemia Mother other (depression/anxiety) Mother Breast Cancer Mother 71 Common hereditary cancer panel negative Arthritis Father Kidney Disease Father other (alcoholism) Father Hypertension Brother other (heart disease) Brother other (alcoholism) Brother Breast Cancer Maternal Grandmother 70 - 79 also Great GMA Stroke Maternal Grandmother 80 Pancreatic Cancer Paternal Aunt 60 Breast Cancer Other 80 Review of Systems Constitutional: Negative for activity change, appetite change, chills, fatigue, fever and unexpected weight change. Respiratory: Negative for cough, shortness of breath and wheezing. Cardiovascular: Negative for chest pain, palpitations and leg swelling. Gastrointestinal: Positive for abdominal pain and constipation. Negative for diarrhea, nausea, rectal pain and vomiting. Lower pelvic/bladder Genitourinary: Negative for difficulty urinating, dyspareunia, dysuria, flank pain, (more content not included)... Normal [facility] UA DIP, URINE (POC)on 2024 BILIRUBIN UA (POCT) Negative Negative [facility] CLARITY UA (POCT) Clear [facility] COLOR UA (POCT) Yellow [facility] GLUCOSE UA (POCT) Negative Negative mg/dL [facility] Hemoglobin Ql (U) Negative Negative [facility] Interpretation and review of laboratory results Abnormal [facility] KETONE UA (POCT) Negative Negative mg/dL [facility] LEUKOCYTES UA (POCT) Negative Negative [facility] NITRITE UA (POCT) Negative Negative [facility] PH UA (POCT) 6 4.5 - 8.0 [facility] Protein Ql (U) Negative Negative mg/dL [facility] SPECIFIC GRAVITY UA (POCT) <=1.005 Abnormal 1.005 - 1.030 [facility] UROBILINOGEN UA (POCT) 0.2 Normal E.U./dL [facility] Location:[facility], [address] [place] [address], [id number] [place] [address] POINT OF CARE [facility] DBT Breast - bilateral scree rosamaria 07-23-2024 IMPRESSION: There is no mammographic evidence of malignancy in either breast. Routine screening mammogram is recommended. Annual mammogram will be due in 1 year. BI-RADS Category 1: Negative RISK: Based on the Tyrer-Cuzick (TC) risk assessment model, this patient has a 21.8% lifetime risk of developing breast cancer, meaning they are at high risk for developing breast cancer. However, this is only an estimate based on available history provided on the patient's questionnaire. Because patients with a lifetime risk of 20% or greater may benefit from additional supplemental screening, we encourage a full breast clinical evaluation and comprehensive breast cancer risk assessment to guide further decision making. For more information regarding the management of high-risk patients, the following is a link to the [facility] care path [email or web address] [email or web address]/documents/ ?wxhbp=11363. Additionally, a referral to the [facility] is also appropriate. Interpreting Radiologist: Anil Bella M.D. Electronically signed on: 07/23/2024 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: MONTSE Transcribe Date/Time: Jul 23 2024 2:11P Dictated by : ANIL BELLA MD This examination was interpreted and the report reviewed and electronically signed by: ANIL BELLA MD on Jul 23 2024 3:50PM [facility] * * *Final Report* * * DATE OF EXAM: Jul 23 2024 2:56PM LDW 0582 - GREGORIO SCREENING W AILEEN / PROCEDURE REASON: Encounter for screening mammogram for malignant neoplasm of breast * * * * Physician Interpretation * * * * [place] [address] #[id number] - GREGORIO SCREENING W AILEEN HISTORY: 58 year-old patient seen for screening. No current complaints. Patient states no personal history of breast cancer. The patient has a family history of breast cancer. COMPARISON STUDIES: The present examination has been compared to prior imaging studies dated 10/23/2018 (mammogram), 2018 (mammogram), 07/15/2021 (mammogram), 05/31/2022 (mammogram) and 06/14/2023 (mammogram). MAMMOGRAM TECHNIQUE: The study was acquired using full field digital technology and interpreted from soft copy. Digital Breast Tomosynthesis (DBT) images were obtained and used to assist in the interpretation of this examination. MAMMOGRAM FINDINGS: The breasts are heterogeneously dense, which may obscure small masses. No suspicious masses, calcifications or other abnormalities are seen in either breast. There are no significant interval changes. [facility] Provider, [facility] - 07/23/2024 * * *Final Report* * * DATE OF EXAM: Jul 23 2024 2:56PM LDW 0582 - GREGORIO SCREENING W AILEEN / PROCEDURE REASON: Encounter for screening mammogram for malignant neoplasm of breast * * * * Physician Interpretation * * * * [place] [id number] #[id number] - GREGORIO SCREENING W AILEEN HISTORY: 58 year-old patient seen for screening. No current complaints. Patient states no personal history of breast cancer. The patient has a family history of breast cancer. COMPARISON STUDIES: The present examination has been compared to prior imaging studies dated 10/23/2018 (mammogram), 2018 (mammogram), 07/15/2021 (mammogram), 05/31/2022 (mammogram) and 06/14/2023 (mammogram). MAMMOGRAM TECHNIQUE: The study was acquired using full field digital technology and interpreted from soft copy. Digital Breast Tomosynthesis (DBT) images were obtained and used to assist in the interpretation of this examination. MAMMOGRAM FINDINGS: The breasts are heterogeneously dense, which may obscure small masses. No suspicious masses, calcifications or other abnormalities are seen in either breast. There are no significant interval changes. IMPRESSION IMPRESSION: There is no mammographic evidence of malignancy in either breast. Routine screening mammogram is recommended. Annual mammogram will be due in 1 year. BI-RADS Category 1: Negative RISK: Based on the Tyrer-Cuzick (TC) risk assessment model, this patient has a 21.8% lifetime risk of developing breast cancer, meaning they are at high risk for developing breast cancer. However, this is only an estimate based on available history provided on the patient's questionnaire. Because patients with a lifetime risk of 20% or greater may benefit from additional supplemental screening, we encourage a full breast clinical evaluation and comprehensive breast cancer risk assessment to guide further decision making. For more information regarding the management of high-risk patients, the following is a link to the [facility] care path [email or web address] .com/dotNet/documents/ ?[email or web address]. Additionally, a referral to the [facility] Medical Breast Clinic is also appropriate. Interpreting Radiologist: Anil Bella M.D. Electronically signed on: 07/23/2024 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: MONTSE Transcribe Date/Time: Jul 23 2024 2:11P Dictated by : ANIL BELLA MD This examination was interpreted and the report reviewed and electronically signed by: ANIL BELLA MD on Jul 23 2024 3:50PM EST [facility] Radiology Study observation (narrative) [facility] DBT Breast - bilateral scree ningOrdered By: [facility] Provider on 07-23-2024 [facility] GREGORIO SCREENING W TOMOon 07-23 GREGORIO SCREENING W AILEEN * * *Final Report* * * DATE OF EXAM: Jul 23 2024 2:56PM LDW 0582 - GREGORIO SCREENING W AILEEN / PROCEDURE REASON: Encounter for screening mammogram for malignant neoplasm of breast * * * * Physician Interpretation * * * * [place] [address] #[id number] - GREGORIO SCREENING W AILEEN HISTORY: 58 year-old patient seen for screening. No current complaints. Patient states no personal history of breast cancer. The patient has a family history of breast cancer. COMPARISON STUDIES: The present examination has been compared to prior imaging studies dated 10/23/2018 (mammogram), 2018 (mammogram), 07/15/2021 (mammogram), 05/31/2022 (mammogram) and 06/14/2023 (mammogram). MAMMOGRAM TECHNIQUE: The study was acquired using full field digital technology and interpreted from soft copy. Digital Breast Tomosynthesis (DBT) images were obtained and used to assist in the interpretation of this examination. MAMMOGRAM FINDINGS: The breasts are heterogeneously dense, which may obscure small masses. No suspicious masses, calcifications or other abnormalities are seen in either breast. There are no significant interval changes. IMPRESSION: There is no mammographic evidence of malignancy in either breast. Routine screening mammogram is recommended. Annual mammogram will be due in 1 year. BI-RADS Category 1: Negative RISK: Based on the Tyrer-Cuzick (TC) risk assessment model, this patient has a 21.8% lifetime risk of developing breast cancer, meaning they are at high risk for developing breast cancer. However, this is only an estimate based on available history provided on the patient's questionnaire. Because patients with a lifetime risk of 20% or greater may benefit from additional supplemental screening, we encourage a full breast clinical evaluation and comprehensive breast cancer risk assessment to guide further decision making. For more information regarding the management of high-risk patients, the following is a link to the [facility] care path [email or web address] ?[email or web address]. Additionally, a referral to the [facility] is also appropriate. Interpreting Radiologist: Anil Bella M.D. Electronically signed on: 07/23/2024 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: MONTSE Transcribe Date/Time: Jul 23 2024 2:11P Dictated by : ANIL BELLA MD This examination was interpreted and the report reviewed and electronically signed by: ANIL BELLA MD on Jul 23 2024 3:50PM EST [id number] Normal [facility] Renal function 2000 panelon 07-23-2024 Albumin [Mass/Vol] 4.0 g/dL Normal 3.9-4.9 [facility] Comment on above: Order Comment: Jen calixto Type: BLOOD SPECIMEN Ordering Facility: [facility] Address: [address] [place] [address] Performed By: #### 2 4323-8, 08432-5, 6-3 #### [facility] CLIA [id number] [address] [place] [address] [place] Anion gap [Moles/Vol] 10 mmol/L Normal 8-15 [facility] Comment on above: Order Comment: Celsoi marily Type: BLOOD SPECIMEN Ordering Facility: [facility] Address: [address] [place], [place] [id number] Performed By: #### 2 4323-8, 52657-0, 6-3 #### [facility] CLIA [id number] [address] [place] [address] [place] Calcium [Mass/Vol] 9.6 mg/dL Normal 8.5-10.2 [facility] Comment on above: Order Comment: Celsoi men Type: BLOOD SPECIMEN Ordering Facility: [facility] Address: [address] [place] [address] Performed By: #### 2 4323-8, 38342-7, 3016-3 #### [facility] CLIA [id number] [address] [place] [address] [place] Chloride [Moles/Vol] 103 mmol/L Normal 98-107 [facility] Comment on above: Order Comment: Jen calixto Type: BLOOD SPECIMEN Ordering Facility: [facility] Address: [address] [place] [address] Performed By: #### 2 4323-8, 35081-8, 3016-3 #### [facility] CLIA [id number] [address] [place] [address] [place] CO2 [Moles/Vol] 27 mmol/L Normal 22-30 [facility] Comment on above: Order Comment: Jen calixto Type: BLOOD SPECIMEN Ordering Facility: [facility] Address: [address] [place] [address] Performed By: #### 2 4323-8, 99317-4, 3016-3 #### [facility] CLIA [id number] [address] [place] [address] [facility] Creatinine [Mass/Vol] 1.02 mg/dL High 0.58-0.96 [facility] Comment on above: Order Comment: Jen calixto Type: BLOOD SPECIMEN Ordering Facility: [facility] Address: [address] [place] [address] Performed By: #### 2 4323-8, 53121-9, 3016-3 #### [facility] CLIA [id number] [address] [place] [address] [facility] Creatinine and Glomerular filtration rate.predicted panel (S/P/Bld) 65 mL/min/1.73m??? Normal >=60 [facility] Comment on above: Order Comment: Jen calixto Type: BLOOD SPECIMEN Ordering Facility: [facility] Address: [address] [place] [address] Result Comment: Helen mated Glomerular Filtration Rate (eGFR) is calculated using the 2020 CKD-EPI creatinine equation. This equation utilizes serum creatinine, sex, and age as parameters. The creatinine assay has traceable calibration to isotope dilution-mass spectrometry. Refer to KDIGO guidelines for clinical interpretation. In patients with unstable renal function, e.g. those with acute kidney injury, the eGFR may not accurately reflect actual GFR. Performed By: #### 2 4323-8, 62389-8, 6-3 #### [facility] CLIA [id number] [address] [place] [address] [place] Glucose [Mass/Vol] 74 mg/dL Normal 74-99 [facility] Comment on above: Order Comment: Jen calixto Type: BLOOD SPECIMEN Ordering Facility: [facility] Address: [address] [place] [address] Result Comment: The [place] Diabetes Association (ADA) provides guidance for cutoff values for fasting glucose and random glucose. The ADA defines fasting as no caloric intake for at least 8 hours. Fasting plasma glucose results between 100 to 125 mg/dL indicate increased risk for diabetes (prediabetes). Fasting plasma glucose results greater than or equal to 126 mg/dL meet the criteria for diagnosis of diabetes. In the absence of unequivocal hyperglycemia, results should be confirmed by repeat testing. In a patient with classic symptoms of hyperglycemia or hyperglycemic crisis, random plasma glucose results greater than or equal to 200 mg/dL meet the criteria for diagnosis of diabetes. Reference: Standards of Medical Care in Diabetes 2016, [place] Diabetes Association. Diabetes Care. 2016.39(Suppl 1). Performed By: #### 2 4323-8, 27923-0, 3015-3 #### [facility] CLIA [id number] [address] [place] [address] [place] Phosphate [Mass/Vol] 2.9 mg/dL Normal 2.7-4.8 [facility] Comment on above: Order Comment: Jen calixto Type: BLOOD SPECIMEN Ordering Facility: [facility] Address: [address] [place] [address] Performed By: #### 2 4323-8, 16074-6, 3015-3 #### [facility] CLIA [id number] [address] [place] [address] [place] Potassium [Moles/Vol] 3.7 mmol/L Normal 3.7-5.1 [facility] Comment on above: Order Comment: Speci men Type: BLOOD SPECIMEN Ordering Facility: [facility] Address: [address] [place] [address] Performed By: #### 2 4323-8, 47736-5, 3016-3 #### [facility] CLIA [id number] [address] [place] [address] [place] Sodium [Moles/Vol] 140 mmol/L Normal 136-144 [facility] Comment on above: Order Comment: Speci men Type: BLOOD SPECIMEN Ordering Facility: [facility] Address: [address] [place] [address] Performed By: #### 2 4323-8, 04780-0, 3016-3 #### [facility] CLIA [id number] [address] [place] [address] [facility] OF [place] Urea nitrogen [Mass/Vol] 17 mg/dL Normal 7-21 [facility] Comment on above: Order Comment: Speci men Type: BLOOD SPECIMEN Ordering Facility: [facility] Address: [address] [place] [address] Performed By: #### 2 4323-8, 59657-6, 3016-3 #### [facility] CLIA [id number] [address] [place] [address] [facility] CNOVon 07-14-2024 CNOV Office Visit (WALKWA ) GAYLE CHRISTIAN ([id number]) 1965 F Date Time Provider Department 07/14/24 8:10 AM BRET BECKWITH During your visit today, we recorded the following information about you: Temperature Pulse Respiration Blood pressure 98.6 degrees 83/minute 16/minute 117/81 Weight 79.2 kg Bret Beckwith PA-C 07/14/2024 9:32 AM Signed PATIENT NAME: Gayle Christian DATE OF : 1965 TODAYS' DATE: 07/14/2024 Recording using [employer] software for draft documentation of the visit was discussed with the patient/authorized sales representative adding machines; all questions welcomed and answered. Patient/authorized sales representative adding machines agreed to proceed Surgical mask and gloves worn for all in-person care. SUBJECTIVE: Patient presents with: Chest Congestion: A lot of coughing and congestion, has been 2 weeks HPI per the patient. History of Present Illness: Gayle is a 58-year-old female presenting with upper respiratory symptoms x 2 weeks. She has experienced increasing cough, BARKER, congestion, and drainage x 2 weeks. Chest feels tight. She notes left ear pain and matting of the right eye upon waking this morning. She describes a sensation of irritation in her lungs, stating they feel super agitated and reports a metallic taste when coughing. She also endorses a slight sensation of chest tightness. She has been taking Claritin for the past week but discontinued it a few days ago. She uses an albuterol inhaler in the mornings, but reports it has not provided relief and instead contributes to a burning sensation in her airways. She denies using Flonase or eye drops. She is not currently taking any medication for the cough, but drinks a lot of water for relief. She denies itchy or watery eyes and does not wear contact lenses. Denies fever, chills, sweats, body aches, or fatigue. Patient denies wheezing, shortness of breath, increased WOB, or chest pain. No n/v/d, or rash. Chart review: PMHx anxiety, depression, acquired hypothyroidism, arthralgias COVID exposure: none Influenza exposure: none RSV exposure: none Asthma: none Pneumonia: none Tobacco: none Covid Immunization Dates Completed or No Longer Recommended Covid-19 Vaccine Discontinued 04/21/2022 Frequency changed to Never by Briseyda Rebolledo MA (Patient Preference) 04/12/2021 Postponed until 04/12/2022 by Lindsay Longo MA (Declined at this time) Pain on scale of 0-10 with 0 being no pain and 10 being greatest pain: - Self-treatment:. Claritin, see HPI Barriers to learning: none. Reviewed meds, OTCs, herbals or supplements. Reviewed allergies, medications, social history, and past medical history. Allergies: Allergies: Penicillin G Rash Comment:itching ALLERGIES Penicillin G Past Medical History: PAST MEDICAL HISTORY Diagnosis Date Pain in left shoulder 12/16/2014 Rotator cuff syndrome of left shoulder 12/16/2014 Past Surgical History: PAST SURGICAL HISTORY Procedure Laterality Date APPENDECTOMY 1984 COLONOSCOPY 08/17/2018 repeat 10 years HYSTERECTOMY HX 09/2013 partial Family History: FAMILY HISTORY Problem Relation Age of Onset Hyperlipidemia Mother other (depression/anxiety) Mother Breast Cancer Mother 71 Common hereditary cancer panel negative Arthritis Father Kidney Disease Father other (alcoholism) Father Hypertension Brother other (heart disease) Brother other (alcoholism) Brother Breast Cancer Maternal Grandmother 70 - 79 also Great GMA Stroke Maternal Grandmother 80 Pancreatic Cancer Paternal Aunt 60 Breast Cancer Other 80 Tobacco History: Tobacco Use: for 20 years. Types: Cigarettes Medications: Current Outpatient Medications Medication Sig Dispense Refill albuterol HFA (PROVENTIL HFA, VENTOLIN HFA) 90 mcg/actuation inhaler Inhale 2 puffs as instructed every 4 hours as needed for wheezing/shortness of breath. 1 each 5 citalopram hydrobromide (CELEXA) 10 mg tablet TAKE 1 TABLET BY MOUTH EVERY DAY 90 tablet 0 estradiol (ESTRACE) 1 mg tablet Take 1 tablet by mouth once daily. 90 tablet 3 levothyroxine (SYNTHROID) 50 mcg tablet take 1 tablet by mouth every day 90 tablet 3 cholecalciferol (VITAMIN D3) 5,000 unit tab Take 5,000 Units by mouth once daily. loratadine (CLARITIN) 10 mg tablet Take 10 mg by mouth once daily as needed. doxycycline monohydrate (MONODOX) 100 mg capsule Take 1 capsule by mouth two times a day for 7 days. 14 capsule 0 predniSONE (DELTASONE) 20 mg tablet Take 1 tablet by mouth two times a day for 5 days. 10 tablet 0 polymyxin B-trimethoprim (POLYTRIM) 10,000 unit- 1 mg/mL ophthalmic solution Use 1 drop in both eyes three times a day for 5 days. 5 mL 0 omega-3/dha/epa/fish oil (OMEGA-3 ORAL) Take 2,000 mg by mouth once daily. (Patient not taking: Reported on 06/10/2024) No current facility-administered medications for th (more content not included)... [facility] (AGINTMLW) GAYLE CHRISTIAN ([id number]) 1965 F Date Time Provider Department 07/08/24 MAGDY LARIOS AGINTMLW During your visit today, we recorded the following information about you: Briseyda Rebolledo MA 07/08/2024 7:00 AM Signed ----- Message from Lalitha Fisher LPN sent at 06/10/2024 4:20 PM EDT ----- Repeat renal panel in 4-6 weeks Lindsay Longo MA 07/08/2024 1:20 PM Signed Left message informing patient, phone number to reach the office was left for any questions or concerns. Lindsay Longo MA Allergies As of Date: 07/08/2024 Noted Allergy Reaction PENICILLIN G 02/05/2013 2 - Rash Comments: itching Date Reviewed: 06/10/2024 Reviewed by: Magdy Larios, MAGAN.SUPPLY CHAIN ANALYST - Fully Assessed Reason for Visit: Lab Orders [1688] Primary Visit Diagnosis:Elevated serum creatinine [R79.89] Order(s):RENAL FUNCTION PANEL [SQRFP] Order #: [id number] FUTURE Prescriptions as of 07/08/2024 - albuterol HFA (PROVENTIL HFA, VENTOLIN HFA) 90 mcg/actuation inhaler Inhale 2 puffs as instructed every 4 hours as needed for wheezing/shortness of breath. - citalopram hydrobromide (CELEXA) 10 mg tablet TAKE 1 TABLET BY MOUTH EVERY DAY - estradiol (ESTRACE) 1 mg tablet Take 1 tablet by mouth once daily. - levothyroxine (SYNTHROID) 50 mcg tablet take 1 tablet by mouth every day - omega-3/dha/epa/fish oil (OMEGA-3 ORAL) Take 2,000 mg by mouth once daily. - cholecalciferol (VITAMIN D3) 5,000 unit tab Take 5,000 Units by mouth once daily. - loratadine (CLARITIN) 10 mg tablet Take 10 mg by mouth once daily as needed. Problem List As Of Date 07/08/2024 Noted Resolved Pain in left shoulder [M25.512] 12/16/2014 08/22/2022 Rotator cuff syndrome of left shoulder [M75.102]12/16/2014 08/22/2022 Anxiety [F41.9] 04/11/2021 Hypothyroidism [E03.9] 08/22/2022 Vasomotor symptoms due to menopause [N95.1] 08/22/2022 Fatigue [R53.82] 08/22/2022 Syncope [R55] 02/02/2023 Palpitations [R00.2] 01/31/2024 Encounter Status:Closed by LINDSAY LONGO on 07/08/24 Normal [facility] RENETTA BY IFA SCREENOrdered By: Lorena Mcadams on 06-12-2024 Interpretation and review of laboratory results Normal [facility] Nuclear Ab Ql (S) Negative Negative [facility] Comment on above: Anti-nuclear antibod y test is used as an aid in diagnosis of systemic autoimmune diseases. Where positive and clinically warranted, follow-up using disease-specific testing is recommended. Low positive titers are not uncommon with advanced age, certain chronic infections, and malignancies among others. Test methodology: Indirect fluorescence immunoassay (IFA) using HEp-2 cells. [facility] ESR Westergren method (Bld) [Velocity]on 06-11-2024 ESR (Bld) [Velocity] 2 mm/h [facility] Interpretation and review of laboratory results Normal [facility] RHEUMATOID FACTORon 06-12-19 Rheumatoid factor Qn 14 [IU]/mL NINF [facility] Rheumatoid factor Qnon 06-11 Interpretation and review of laboratory results Normal [facility] RENETTA BY IFA SCREENon 06-11-19 Nuclear Ab Ql (S) Negative Normal Negative [facility] Comment on above: Order Comment: Speci men Type: BLOOD SPECIMEN Order[facility] Facility: [facility] Address: [address] [place] [address] [place] [address] Result Comment: Anti -nuclear antibody test is used as an aid in diagnosis of systemic autoimmune diseases. Where positive and clinically warranted, follow-up using disease-specific testing is recommended. Low positive titers are not uncommon with advanced age, certain chronic infections, and malignancies among others. Test methodology: Indirect fluorescence immunoassay (IFA) using HEp-2 cells. Performed By: #### 2 4323-8, 70785-8, 3016-3 #### [facility] CLIA [id number] [address] [place] [address] [place] C-REACTIVE PROTEINon 025 CRP [Mass/Vol] 0.3 mg/dL NINF - 0.9 mg/dL [facility] CNOVon 06-10-2024 CNOV Office Visit (AGINTMLW) GAYLE CHRISTIAN ([id number]) 1965 F Date Time Provider Department 06/10/24 2:40 PM MAGDY LARIOS ELBERTFabio During your visit today, we recorded the following information about you: Pulse Respiration Blood pressure Weight 59/minute 18/minute 118/70 79.7 kg Height 1.702 m Magdy Larios, ODD JOBS DAY WORKER.SUPPLY CHAIN ANALYST 06/10/2024 4:27 PM Signed This note was created using NoteWriter. Subjective Gayleverna Christian is a 58 year old female here today for WAE. PMH palpitations, anxiety, hypothyroidism. She reports having aching joints and states her knuckles in her hands are swollen states started in December. Decrease hand strength. Anxiety: she is taking celexa 10 mg daily. States she feels blah all the time. Denies feeling depressed. She admits to not having much emotions. States she has not feelings anymore. States she was able to fly without any medications. Hot flashes: She takes estrogen for this. States DR Means starting giving her this after her DIRECTOR [employer] MARKET[employer] retired. also was put on this for menopausal hot flashes. She went on estrogen to help control her hot flashes. Hypothyroidism: she is taking levothyroxine 50 mcg daily. She is seeing Dr Calhoun for management. She was last seen 08/22/22. He also prescribes her estradiol for sever menopausal symptoms that started in 2019. She reports she went off her estradiol from December until 3 wks ago. States reports in February and mar she would get sharp pains in her head, bad hot flashes(11 in one day), unable to sleep. States she went back on it 3 wks ago. Hx of syncopal episodes: she did see Dr Barillas regarding this. Her last syncopal episode was in 2021. He felt appeare vasovagal. Exclusively occurs when up to use bathroom. Preventative: she is due for mammogram in June and labs. She is not interested in flu or COVID vaccines. Last pap She sees DIRECTOR [employer] MARK[employer] Dr Gusman in [place]. colonoscopy at age 52 follow up 10 yrs. Pt is very active. 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 Some elements of above documentation were copied from my progress note of 05/23/23 and have been reexamined and updated where appropriate. All elements reflect the current assessment and medical decision making today . ALLERGIES Allergen Reactions Penicillin G Rash itching Current Outpatient Medications Medication Sig Dispense Refill citalopram hydrobromide (CELEXA) 10 mg tablet TAKE 1 TABLET BY MOUTH EVERY DAY 90 tablet 0 estradiol (ESTRACE) 1 mg tablet Take 1 tablet by mouth once daily. 90 tablet 3 levothyroxine (SYNTHROID) 50 mcg tablet take 1 tablet by mouth every day 90 tablet 3 albuterol HFA (PROVENTIL HFA, VENTOLIN HFA) 90 mcg/actuation inhaler Inhale 2 Puffs as instructed every 4 hours as needed for wheezing/shortness of breath. 1 Each 0 omega-3/dha/epa/fish oil (OMEGA-3 ORAL) Take 2,000 mg by mouth once daily. cholecalciferol (VITAMIN D3) 5,000 unit tab Take 5,000 Units by mouth once daily. loratadine (CLARITIN) 10 mg tablet Take 10 mg by mouth once daily as needed. No current facility-administered medications for this visit. ACTIVE PROBLEM LIST Anxiety Hypothyroidism Vasomotor Symptoms Due to Menopause Fatigue Syncope Palpitations PAST MEDICAL HISTORY Diagnosis Date Pain in left shoulder 12/16/2014 Rotator cuff syndrome of left shoulder 12/16/2014 PAST SURGICAL HISTORY Procedure Laterality Date APPENDECTOMY 1984 COLONOSCOPY 08/17/2018 repeat 10 years HYSTERECTOMY HX 09/2013 partial Social History Tobacco Use Smoking status: Former Types: Cigarettes Start date: 02/06/2004 Smokeless tobacco: Never Vaping Use Vaping status: Never Used Substance Use Topics Alcohol use: Not Currently Drug use: No Family History Problem Relation Age of Onset Hyperlipidemia Mother other (depression/anxiety) Mother Breast Cancer Mother 71 Common hereditary cancer panel negative Arthritis Father Kidney Disease Father other (alcoholism) Father Hypertension Brother other (heart disease) Brother other (alcoholism) Brother Breast Cancer Maternal Grandmother 70 - 79 also Great GMA Stroke Maternal Grandmother 80 Pancreatic Cancer Paternal Aunt 60 Breast Cancer Other 80 . Review of Systems Constitutional: Positive for fatigue. Negative for activity change, appetite change, chills, diaphoresis, fever and unexpected weight change. HENT: Negative for ear pain, sinus pain, sore throat and trouble swallowing. Eyes: Negative for photophobia and visual disturbance. Respiratory: Negative for cough, chest tightness, shortness of breath and wheezing. Cardiovascular: Negative for chest pain, palpitations and leg swelling. Gastrointestinal: Negative for abdominal pain, blood in stool, constipation, diarrhea, nausea and vomiting. Endocrine: Negative. Genitourinary: Negative f (more content not included)... Normal [facility] CRP SerPl-mCncon 06-10-2024 CRP [Mass/Vol] 0.3 mg/dL Normal <0.9 [facility] Comment on above: Order Comment: Speci men Type: BLOOD SPECIMEN Ordering Facility: [facility] Address: [address] [place] [address] Performed By: #### 2 4323-8, 85698-3, 3016-3 #### [facility] CLIA [id number] [address] [place] [address] [place] CRP [Mass/Vol]on 06-10-2024 Interpretation and review of laboratory results Normal [facility] ESR Westergren method (Bld) [Velocity]on 06-10-2024 ESR (Bld) [Velocity] 2 mm/h Normal 0-20 [facility] Comment on above: Order Comment: Speci men Type: BLOOD SPECIMEN Ordering Facility: [facility] Address: [address] [place] [address] Performed By: #### 4 537-7 #### [facility] CLIA [id number] [address] [place], [place] [address] [address] OF [place] Rheumatoid fact SerPl-aCncon 06-10-2024 Rheumatoid factor Qn 14 [IU]/mL Normal <16 [facility] Comment on above: Order Comment: Speci men Type: BLOOD SPECIMEN Ordering Facility: [facility] Address: [address] [place] [address] Performed By: #### 2 4323-8, 05702-4, 3016-3 #### [facility] CLIA [id number] [address] [place] [address] OF [place] Urinalysis complete panel (U )Ordered By: [place] on 06-10-2024 Bacteria LM.HPF (Urine sed) [#/Area] Moderate Abnormal None Seen /HPF [facility] Bilirubin Ql (U) Negative Negative [facility] Clarity (Unsp spec) Slightly Cloudy Abnormal Clear [facility] Color (U) Yellow Yellow [facility] Epithelial cells LM.HPF (Urine sed) [#/Area] Moderate /HPF [facility] Glucose Test strip (U) [Mass/Vol] Negative Negative [facility] Hemoglobin Ql (U) Negative Negative [facility] Interpretation and review of laboratory results Abnormal [facility] Ketones Ql (U) Negative Negative [facility] Leukocyte esterase Test strip Ql (U) Negative Negative [facility] Nitrite Ql (U) Negative Negative [facility] pH (U) 6 [pH] 5.0 - 8.0 [facility] Protein (U) [Mass/Vol] Negative Negative [facility] RBC LM.HPF (Urine sed) [#/Area] 0-3 /HPF 0-3 /HPF [facility] Specific gravity (U) [Rel density] 1.01 1.006 - 1.029 [facility] Urobilinogen Ql (U) 0.2 EU/dL 0.2-1.0 EU/dL [facility] [facility] WBC LM.HPF (Urine sed) [#/Area] 0-5 /HPF 0-5 /HPF [facility] Urinalysis complete panel (U )on 06-10-2024 Bacteria LM.HPF (Urine sed) [#/Area] Moderate Abnormal None Seen [facility] Comment on above: Order Comment: Speci men Type: BLOOD SPECIMEN Ordering Facility: [facility] Address: [address] [place] [address] Performed By: #### 2 4323-8, 57230-2, 3016-3 #### [facility] CLIA [id number] [address] [place] [address] [place] Bilirubin Ql (U) Negative Normal Negative [facility] Comment on above: Order Comment: Speci men Type: BLOOD SPECIMEN Ordering Facility: [facility] Address: [address] [place] [address] Performed By: #### 2 4323-8, 35564-5, 6-3 #### [facility] CLIA [id number] [address] [place] [address] [facility] Clarity (Unsp spec) Slightly Cloudy Abnormal Clear [facility] Comment on above: Order Comment: Speci men Type: BLOOD SPECIMEN Ordering Facility: [facility] Address: [address] [place] [address] Performed By: #### 2 4323-8, 55116-1, 6-3 #### [facility] CLIA [id number] [address] [place] [address] [facility] Color (U) Yellow Normal Yellow [facility] Comment on above: Order Comment: Speci men Type: BLOOD SPECIMEN Ordering Facility: [facility] Address: [address] [place] [address] Performed By: #### 2 4323-8, 16069-2, 3016-3 #### [facility] CLIA [id number] [address] [place] [address] [facility] Epithelial cells LM.HPF (Urine sed) [#/Area] Moderate Normal [facility] Comment on above: Order Comment: Speci men Type: BLOOD SPECIMEN Ordering Facility: [facility] Address: [address] [id number] Performed By: #### 2 4323-8, 76016-7, 3015-3 #### [facility] CLIA [id number] [address] [facility] [place] [address] [facility] Glucose Test strip (U) [Mass/Vol] Negative Normal Negative [facility] Comment on above: Order Comment: Speci men Type: BLOOD SPECIMEN Ordering Facility: [facility] Address: [address] [place], [place] [id number] Performed By: #### 2 4323-8, 03533-5, 3015-3 #### [facility] CLIA [id number] [address] [place] [address] [facility] Hemoglobin Ql (U) Negative Normal Negative [facility] Comment on above: Order Comment: Speci men Type: BLOOD SPECIMEN Ordering Facility: [facility] Address: [address] [place] [address] Performed By: #### 2 4323-8, 31275-7, 3015-3 #### [facility] CLIA [id number] [address] [facility] [address] [facility] Ketones Ql (U) Negative Normal Negative [facility] Comment on above: Order Comment: Speci men Type: BLOOD SPECIMEN Ordering Facility: [facility] Address: [address] [id number] Performed By: #### 2 4323-8, 77508-1, 3015-3 #### [facility] CLIA [id number] [address] [facility] [address] [facility] Leukocyte esterase Test strip Ql (U) Negative Normal Negative [facility] Comment on above: Order Comment: Speci men Type: BLOOD SPECIMEN Ordering Facility: [facility] Address: [address] [id number] Performed By: #### 2 4323-8, 56833-4, 3015-3 #### [facility] CLIA [id number] [address] [place] [address] [place] Nitrite Ql (U) Negative Normal Negative [facility] Comment on above: Order Comment: Speci men Type: BLOOD SPECIMEN Ordering Facility: [facility] Address: [address] [place] [address] Performed By: #### 2 4323-8, 95045-0, 3016-3 #### [facility] CLIA [id number] [address] [place] [address] [place] pH (U) 6.0 [pH] Normal 5.0-8.0 [facility] Comment on above: Order Comment: Speci men Type: BLOOD SPECIMEN Ordering Facility: [facility] Address: [address] [place] [address] Performed By: #### 2 4323-8, 45192-9, 6-3 #### [facility] CLIA [id number] [address] [place] Protein (U) [Mass/Vol] Negative Normal Negative [facility] Comment on above: Order Comment: Speci men Type: BLOOD SPECIMEN Ordering Facility: [facility] Address: [address] [place] [address] Performed By: #### 2 4323-8, 21572-3, 6-3 #### [facility] CLIA [id number] [address] [place] [address] [place] RBC LM.HPF (Urine sed) [#/Area] 0-3 /HPF Normal 0-3 /HPF [facility] Comment on above: Order Comment: Speci men Type: BLOOD SPECIMEN Ordering Facility: [facility] Address: [address] [place] [address] Performed By: #### 2 4323-8, 81872-1, 3016-3 #### [facility] CLIA [id number] [address] [place] [address] [place] Specific gravity (U) [Rel density] 1.010 Normal 1.005-1.030 [facility] Comment on above: Order Comment: Speci men Type: BLOOD SPECIMEN Ordering Facility: [facility] Address: [address] [place] [address] Performed By: #### 2 4323-8, 64013-6, 6-3 #### [facility] CLIA [id number] [address] [place] [address] [place] Urobilinogen Ql (U) 0.2 EU/dL Normal 0.2-1.0 EU/dL [facility] Comment on above: Order Comment: Speci men Type: BLOOD SPECIMEN Ordering Facility: [facility] Address: [address] [place] [address] Performed By: #### 2 4323-8, 02755-9, 6-3 #### [facility] CLIA [id number] [address] [place] [address] [place] WBC LM.HPF (Urine sed) [#/Area] 0-5 /HPF Normal 0-5 /HPF [facility] Comment on above: Order Comment: Speci men Type: BLOOD SPECIMEN Ordering Facility: [facility] Address: [address] [place] [address] Performed By: #### 2 4323-8, 02686-2, 3015-3 #### [facility] CLIA [id number] [address] [place] [address] [place] 25(OH)D3 [facility] 2024 25-hydroxyvitamin D3 [Mass/Vol] 46.9 ng/mL Normal >=30.0 [facility] Comment on above: Order Comment: Speci men Type: BLOOD SPECIMEN Ordering Facility: [facility] Address: [address] [place] [address] Result Comment: Clas sification of 25 [place] Vitamin D status: Deficiency: <= 20.0 ng/ml. Insufficiency: 21.0-29.0 ng/ml. Sufficiency: >= 30.0 ng/ml. Performed By: #### 1 989-3 #### [facility] CLIA [id number] [address] OF [facility] CBC panel Auto (Bld)on 06-08 Erythrocyte distribution width (RBC) [Ratio] 12.7 % Normal 11.5-15.0 [facility] Comment on above: Order Comment: Speci men Type: BLOOD SPECIMEN Ordering Facility: [facility] Address: [address] [place] [address] Performed By: #### 2 4323-8, 98420-6, 3016-3 #### [facility] CLIA [id number] [address] [place] [address] [place] Hematocrit (Bld) [Volume fraction] 47.8 % High 36.0-46.0 [facility] Comment on above: Order Comment: Speci marily Type: BLOOD SPECIMEN Ordering Facility: [facility] Address: [address] [place] [address] Performed By: #### 2 4323-8, 37790-0, 6-3 #### [facility] CLIA [id number] [address] [place] [address] [facility] Hemoglobin (Bld) [Mass/Vol] 15.5 g/dL Normal 11.5-15.5 [facility] Comment on above: Order Comment: Speci men Type: BLOOD SPECIMEN Ordering Facility: [facility] Address: [address] [place] [address] Performed By: #### 2 4323-8, 40241-9, 6-3 #### [facility] CLIA [id number] [address] [place] [address] [facility] MCH (RBC) [Entitic mass] 29.9 pg Normal 26.0-34.0 [facility] Comment on above: Order Comment: Speci men Type: BLOOD SPECIMEN Ordering Facility: [facility] Address: [address] [place] [address] Performed By: #### 2 4323-8, 01165-7, 3016-3 #### [facility] CLIA [id number] [address] [place] [address] [place] MCHC (RBC) [Mass/Vol] 32.4 g/dL Normal 30.5-36.0 [facility] Comment on above: Order Comment: Speci men Type: BLOOD SPECIMEN Ordering Facility: [facility] Address: [address] [place] [address] Performed By: #### 2 4323-8, 56772-3, 3016-3 #### [facility] CLIA [id number] [address] [place] [address] [place] MCV (RBC) [Entitic vol] 92.3 fL Normal 80.0-100.0 [facility] Comment on above: Order Comment: Speci men Type: BLOOD SPECIMEN Ordering Facility: [facility] Address: [address] [place] [address] Performed By: #### 2 4323-8, 17532-6, 6-3 #### [facility] CLIA [id number] [address] [place] [address] [place] Platelet mean volume (Bld) [Entitic vol] 10.0 fL Normal 9.0-12.7 [facility] Comment on above: Order Comment: Speci men Type: BLOOD SPECIMEN Ordering Facility: [facility] Address: [address] [place] [address] Performed By: #### 2 4323-8, 98529-9, 3016-3 #### [facility] CLIA [id number] [address] [place] [address] [place] Platelets (Bld) [#/Vol] 241 10*3/uL Normal 150-400 [facility] Comment on above: Order Comment: Speci men Type: BLOOD SPECIMEN Ordering Facility: [facility] Address: [address] [place] [address] Performed By: #### 2 4323-8, 89941-1, 3016-3 #### [facility] CLIA [id number] [address] [place] [address] [place] RBC (Bld) [#/Vol] 5.18 10*6/uL Normal 3.90-5.20 [facility] Comment on above: Order Comment: Speci men Type: BLOOD SPECIMEN Ordering Facility: [facility] Address: [address] [place] [address] Performed By: #### 2 4323-8, 33937-0, 3016-3 #### [facility] CLIA [id number] [address] [place] [address] [facility] WBC (Bld) [#/Vol] 4.62 10*3/uL Normal 3.70-11.00 [facility] Comment on above: Order Comment: Speci men Type: BLOOD SPECIMEN Ordering Facility: [facility] Address: [address] [place] [address] Performed By: #### 2 4323-8, 29978-1, 6-3 #### [facility] CLIA [id number] [address] [place] [address] [facility] Comprehensive metabolic 2000 panelon 06-08-2024 Albumin [Mass/Vol] 4.1 g/dL Normal 3.9-4.9 [facility] Comment on above: Order Comment: Speci men Type: BLOOD SPECIMEN Ordering Facility: [facility] Address: [address] [place] [address] Performed By: #### 2 4323-8, 98800-8, 6-3 #### [facility] CLIA [id number] [address] [place] [address] [place] ALP [Catalytic activity/Vol] 106 U/L Normal 34-123 [facility] Comment on above: Order Comment: Speci men Type: BLOOD SPECIMEN Ordering Facility: [facility] Address: [address] [place] [address] Performed By: #### 2 4323-8, 49086-5, 6-3 #### [facility] CLIA [id number] [address] [facility] [address] [facility] ALT With P-5'-P [Catalytic activity/Vol] 20 U/L Normal 7-38 [facility] Comment on above: Order Comment: Speci men Type: BLOOD SPECIMEN Ordering Facility: [facility] Address: [address] [place] [address] Performed By: #### 2 4323-8, 73305-4, 6-3 #### [facility] CLIA [id number] [address] [place] [address] [place] Anion gap [Moles/Vol] 9 mmol/L Normal 8-15 [facility] Comment on above: Order Comment: Speci men Type: BLOOD SPECIMEN Ordering Facility: [facility] Address: [address] [place] [address] Performed By: #### 2 4323-8, 68266-5, 3015-3 #### [facility] CLIA [id number] [address] [place] [address] [place] AST With P-5'-P [Catalytic activity/Vol] 20 U/L Normal 13-35 [facility] Comment on above: Order Comment: Speci men Type: BLOOD SPECIMEN Ordering Facility: [facility] Address: [address] [place] [address] Performed By: #### 2 4323-8, 67359-0, 3015-3 #### [facility] CLIA [id number] [address] [place] [address] [place] Bilirubin [Mass/Vol] 0.8 mg/dL Normal 0.2-1.3 [facility] Comment on above: Order Comment: Speci men Type: BLOOD SPECIMEN Ordering Facility: [facility] Address: [address] [place], [place] [id number] Performed By: #### 2 4323-8, 26998-4, 6-3 #### [facility] CLIA [id number] [address] [place] [address] [place] Calcium [Mass/Vol] 9.6 mg/dL Normal 8.5-10.2 [facility] Comment on above: Order Comment: Speci men Type: BLOOD SPECIMEN Ordering Facility: [facility] Address: [address] [place] [address] Performed By: #### 2 4323-8, 98717-5, 3016-3 #### [facility] CLIA [id number] [address] [place] [address] [place] Chloride [Moles/Vol] 104 mmol/L Normal 98-107 [facility] Comment on above: Order Comment: Speci men Type: BLOOD SPECIMEN Ordering Facility: [facility] Address: [address] [place] [address] Performed By: #### 2 4323-8, 87909-6, 3016-3 #### [facility] CLIA [id number] [address] [place] [address] [place] CO2 [Moles/Vol] 28 mmol/L Normal 22-30 [facility] Comment on above: Order Comment: Speci men Type: BLOOD SPECIMEN Ordering Facility: [facility] Address: [address] [place] [address] Performed By: #### 2 4323-8, 10365-5, 3016-3 #### [facility] CLIA [id number] [address] [place] [address] [place] Creatinine [Mass/Vol] 1.10 mg/dL High 0.58-0.96 [facility] Comment on above: Order Comment: Speci men Type: BLOOD SPECIMEN Ordering Facility: [facility] Address: [address] [place] [address] Performed By: #### 2 4323-8, 39545-5, 3016-3 #### [facility] CLIA [id number] [address] [place] [address] [facility] Creatinine and Glomerular filtration rate.predicted panel (S/P/Bld) 59 mL/min/1.73m??? Low >=60 [facility] Comment on above: Order Comment: Speci men Type: BLOOD SPECIMEN Ordering Facility: [facility] Address: [address] [place] [address] Result Comment: Helen mated Glomerular Filtration Rate (eGFR) is calculated using the 2020 CKD-EPI creatinine equation. This equation utilizes serum creatinine, sex, and age as parameters. The creatinine assay has traceable calibration to isotope dilution-mass spectrometry. Refer to KDIGO guidelines for clinical interpretation. In patients with unstable renal function, e.g. those with acute kidney injury, the eGFR may not accurately reflect actual GFR. Performed By: #### 2 4323-8, 17590-4, 6-3 #### [facility] CLIA [id number] [address] [place] [address] [place] Glucose [Mass/Vol] 100 mg/dL High 74-99 [facility] Comment on above: Order Comment: Jen calixto Type: BLOOD SPECIMEN Ordering Facility: [facility] Address: [address] [place], [place] [id number] Result Comment: The [place] Diabetes Association (ADA) provides guidance for cutoff values for fasting glucose and random glucose. The ADA defines fasting as no caloric intake for at least 8 hours. Fasting plasma glucose results between 100 to 125 mg/dL indicate increased risk for diabetes (prediabetes). Fasting plasma glucose results greater than or equal to 126 mg/dL meet the criteria for diagnosis of diabetes. In the absence of unequivocal hyperglycemia, results should be confirmed by repeat testing. In a patient with classic symptoms of hyperglycemia or hyperglycemic crisis, random plasma glucose results greater than or equal to 200 mg/dL meet the criteria for diagnosis of diabetes. Reference: Standards of Medical Care in Diabetes 2016, [place] Diabetes Association. Diabetes Care. 2016.39(Suppl 1). Performed By: #### 2 4323-8, 13524-6, 3015-3 #### [facility] CLIA [id number] [address] [place] [address] [place] Potassium [Moles/Vol] 4.4 mmol/L Normal 3.7-5.1 [facility] Comment on above: Order Comment: Jen calixto Type: BLOOD SPECIMEN Ordering Facility: [facility] Address: [address] [place] [address] Performed By: #### 2 4323-8, 11904-1, 3015-3 #### [facility] CLIA [id number] [address] [place] [address] [place] Protein [Mass/Vol] 6.6 g/dL Normal 6.3-8.0 [facility] Comment on above: Order Comment: Speci men Type: BLOOD SPECIMEN Ordering Facility: [facility] Address: [address] [place] [address] Performed By: #### 2 4323-8, 37672-9, 6-3 #### [facility] CLIA [id number] [address] [place] [address] [place] Sodium [Moles/Vol] 141 mmol/L Normal 136-144 [facility] Comment on above: Order Comment: Speci men Type: BLOOD SPECIMEN Ordering Facility: [facility] Address: [address] [place] [address] Performed By: #### 2 4323-8, 72221-9, 3015-3 #### [facility] CLIA [id number] [address] [place] [address] [place] Urea nitrogen [Mass/Vol] 17 mg/dL Normal 7-21 [facility] Comment on above: Order Comment: Speci men Type: BLOOD SPECIMEN Ordering Facility: [facility] Address: [address] [place] [address] Performed By: #### 2 4323-8, 78542-6, 3015-3 #### [facility] CLIA [id number] [address] [place] [address] [place] Lipid 1996 panelon 5 Cholesterol [Mass/Vol] 258 mg/dL High <200 [facility] Comment on above: Order Comment: Speci men Type: BLOOD SPECIMEN Ordering Facility: [facility] Address: [address] [place] [address] Result Comment: <200 mg/dL, Desirable 200-239 mg/dL, Borderline high >239 mg/dL, High Performed By: #### 2 4323-8, 24304-8, 3015-3 #### [facility] CLIA [id number] [address] [place] [address] [place] Cholesterol in HDL [Mass/Vol] 80 mg/dL Normal >39 [facility] Comment on above: Order Comment: Jen marily Type: BLOOD SPECIMEN Ordering Facility: [facility] Address: [address] [place] [address] Result Comment: 40-5 9 mg/dL, Acceptable >59 mg/dL, High: Negative risk factor for coronary heart disease <40 mg/dL, Low: Positive risk factor for coronary heart disease Performed By: #### 2 4323-8, 89685-9, 3016-3 #### [facility] CLIA [id number] [address] [place] [address] [facility] Cholesterol in LDL [Mass/Vol] 158 mg/dL High <100 [facility] Comment on above: Order Comment: Jen marily Type: BLOOD SPECIMEN Ordering Facility: [facility] Address: [address] [place] [address] Result Comment: <100 mg/dL, Optimal 100-129 mg/dL, Near optimal/above optimal 130-159 mg/dL, Borderline high 160-189 mg/dL, High >189 mg/dL, Very high Secondary prevention optimal LDL Cholesterol levels are recommended to be < 70 mg/dL Performed By: #### 2 4323-8, 05778-5, 3015-3 #### [facility] CLIA [id number] [address] OF [facility] Cholesterol in LDL/Cholesterol in HDL [Mass ratio] 1.98 {ratio} Normal <2.54 [facility] Comment on above: Order Comment: Jen calixto Type: BLOOD SPECIMEN Ordering Facility: [facility] Address: [address] [place] [address] Result Comment: Refe rence: 1. National Cholesterol Education Program ATP III Guideline At-A-Glance Quick Desk Reference: National Heart, Lung, and Blood Warren. National Institutes of Health. 2001: NIH Publication No. 01-3305. 2. An International Atherosclerosis Society position paper: global recommendations for the management of dyslipidemia: executive summary, Atherosclerosis. 2014: 232(2):410-413. Performed By: #### 2 4323-8, 71593-1, 6-3 #### [facility] CLIA [id number] [address] [place] [address] [facility] Cholesterol in VLDL [Mass/Vol] 20 mg/dL Normal <30 [facility] Comment on above: Order Comment: Speci men Type: BLOOD SPECIMEN Ordering Facility: [facility] Address: [address] [place] [address] Performed By: #### 2 4323-8, 23770-2, 3016-3 #### [facility] CLIA [id number] [address] [place] [address] [facility] Cholesterol non HDL [Mass/Vol] 178 mg/dL High <130 [facility] Comment on above: Order Comment: Speci men Type: BLOOD SPECIMEN Ordering Facility: [facility] Address: [address] [place] [address] Result Comment: <130 mg/dL, Optimal 130-159 mg/dL, Near optimal/above optimal 160-189 mg/dL, Borderline high 190-219 mg/dL, High >219 mg/dL, Very high Secondary prevention optimal non HDL Cholesterol levels are recommended to be <100 mg/dL Performed By: #### 2 4323-8, 36634-8, 3015-3 #### [facility] CLIA [id number] [address] [place] [address] [facility] Cholesterol.total/Cho lesterol in HDL [Mass ratio] 3.23 {ratio} Normal <5.10 [facility] Comment on above: Order Comment: Speci men Type: BLOOD SPECIMEN Ordering Facility: [facility] Address: [address] [place] [address] Performed By: #### 2 4323-8, 42036-7, 3015-3 #### [facility] CLIA [id number] [address] [place] [address] [facility] FASTING TIME 12 hrs Normal [facility] Comment on above: Order Comment: Speci men Type: BLOOD SPECIMEN Ordering Facility: [facility] Address: [address] [place] [address] Performed By: #### 2 4323-8, 25280-8, 3015-3 #### [facility] CLIA [id number] [address] [place] [address] [facility] Triglyceride [Mass/Vol] 101 mg/dL Normal <150 [facility] Comment on above: Order Comment: Jen calixto Type: BLOOD SPECIMEN Ordering Facility: [facility] Address: [address] [place] [address] Result Comment: <150 mg/dL, Normal 150-199 mg/dL, Borderline high 200-499 mg/dL, High >499 mg/dL, Very high Performed By: #### 2 4323-8, 95389-0, 3016-3 #### [facility] CLIA [id number] [address] T4 Free SerPl-mCncon 025 Free T4 [Mass/Vol] 1.1 ng/dL Normal 0.9-1.7 [facility] Comment on above: Order Comment: Celsoi men Type: BLOOD SPECIMEN Ordering Facility: [facility] Address: [address] [place] [address] Performed By: #### 2 4323-8, 23220-6, 3016-3 #### [facility] CLIA [id number] [address] [place] [address] OF [facility] TSH SerPl-aCncon 06-08-2024 TSH Qn 2.300 m[IU]/L Normal 0.270-4.200 [facility] Comment on above: Order Comment: Speci men Type: BLOOD SPECIMEN Ordering Facility: [facility] Address: 01 [place] [address] Performed By: #### 2 [id number], [id number], [id number] #### [facility] CLIA [id number] [address] CNOVon 02-28-2024 CNOV Office Visit (AGGBRC R) GAYLE CHRISTIAN ([id number]) 1965 F Date Time Provider Department 02/28/24 1:00 PM DEBORA CALVILLO During your visit today, we recorded the following information about you: Debora Calvillo MS 02/28/2024 3:51 PM Signed [facility] Department of Medical Genetics Consultation Note Genetic Counselor: Debora Calvillo MS, [facility] Patient: Gayle Christian Patient Name and confirmed at initiation of visit. HIGH LEVEL SUMMARY: The patient's family history is potentially suggestive of a hereditary pancreatic cancer syndrome. The patient provided informed consent for Multi-Cancer panel through [facility]. Results are expected in 2-3 weeks from the time of sample collection. Patient plans to have blood drawn on site today. IDENTIFICATION AND CHIEF COMPLAINT: Dr. Magdy Larios requested a consultation for genetic counseling and risk assessment for Gayle Christian, a 58 year old female, for discussion of her family history of breast cancer. She presents to clinic today to discuss the possibility of a genetic predisposition to cancer, and to further clarify her risks, as well as her family members' risks for cancer. HISTORY OF PRESENT ILLNESS: Gayle Christian is a 58 year old female with no personal history of cancer. She has a family history of breast cancer in her mother and maternal grandmother. Her mother had negative panel testing in 2019. PAST MEDICAL HISTORY Diagnosis Date Pain in left shoulder 12/16/2014 Rotator cuff syndrome of left shoulder 12/16/2014 PAST SURGICAL HISTORY Procedure Laterality Date APPENDECTOMY 1984 COLONOSCOPY 08/17/2018 repeat 10 years HYSTERECTOMY HX 09/2013 partial CANCER SURVEILLANCE HISTORY: Mammograms: Yes / annual tomosynthesis Breast MRI's: No Breast Biopsies: No Colonoscopy: Yes EGD: Yes / hiatal hernia GI Polyps: No Prostate Cancer surveillance: N/A Dermatology: Yes / annual REPRODUCTIVE HISTORY AND PERSONAL RISK ASSESSMENT FACTORS: Weight: Last 1 Encounter Wt Readings: Date: Wt: 01/31/2024 74.4 kg (164 lb) Height: Last 1 Encounter Ht Readings: Date: Ht: 01/31/2024 170.2 cm (5' 7) Uterus Intact: No Ovaries Intact: one intact SOCIAL HISTORY: Social History Tobacco Use Smoking status: Former Types: Cigarettes Start date: 02/06/2004 Smokeless tobacco: Never Vaping Use Vaping status: Never Used Substance Use Topics Alcohol use: Not Currently Drug use: No FAMILY HISTORY: We obtained a detailed, 4-generation family history. Significant diagnoses are listed below: FAMILY HISTORY Problem Relation Age of Onset Hyperlipidemia Mother other (depression/anxiety) Mother Breast Cancer Mother 71 Common hereditary cancer panel negative Arthritis Father Kidney Disease Father other (alcoholism) Father Hypertension Brother other (heart disease) Brother other (alcoholism) Brother Breast Cancer Maternal Grandmother 70 - 79 also Great GMA Stroke Maternal Grandmother 80 Pancreatic Cancer Paternal Aunt 60 Breast Cancer Other 80 A copy of the patient's pedigree will be available under the scanned documents tab following today's visit. GENETIC COUNSELING RISK ASSESSMENT, DISCUSSION, AND SUGGESTED FOLLOW UP: We reviewed the natural history and genetic etiology of sporadic, familial and hereditary cancer syndromes. The patient's family history is potentially suggestive of: a hereditary pancreatic cancer syndrome We reviewed since the patient's mother had a negative panel test, there is not a concern for the patient to have inherited a hereditary cancer syndrome from her maternal side of the family. The patient's paternal aunt had a history of pancreatic cancer. We discussed that the best person to begin with genetic testing is a family member with a history of cancer. The patient's paternal aunt who was diagnosed with pancreatic cancer would be the most appropriate relative for genetic testing. However, this relative is unavailable for testing. Therefore we discussed the limitations of interpreting tests results for an unaffected individual. While the patient does not meet NCCN genetic testing criteria. Although the patient's family history does not meet genetic testing criteria, we discussed the option of pursuing genetic testing for an out of pocket fee. We discussed that identification of a hereditary cancer syndrome may help her care providers tailor her medical management. If a mutation is detected, the National Comprehensive Cancer Network and/or expert opinion recommendations could include increased cancer surveillance and prophylactic surgery options. If a mutation is detected, the patient will be referred back to the referring provider and to any additional appropriate care providers to discuss the relevant options. Inheritance of h (more content not included)... Normal [facility] CNOVon 01-31-2024 CNOV Office Visit (AGCARDPOB) GAYLE CHRISTIAN ([id number]) 1965 F Date Time Provider Department 01/31/24 11:00 AM NICOLA BARILLAS AGCARDPOB During your visit today, we recorded the following information about you: Pulse Respiration Blood pressure Weight 67/minute 18/minute 130/70 74.4 kg Height 1.702 m Cassandra Dong MA 01/31/2024 11:37 AM Signed Patient complains of feeling of tightness on the (R) side this is the first time it happened on this side. Nicola Barillas MD 01/31/2024 11:37 AM Signed PRIMARY CARE PHYSICIAN: Magdy Larios [address] [place] [address] REFERRING PHYSICIAN: SELF CHIEF COMPLAINT: Patient presents with: CARD Follow Up 6 Month: Follow up to syncope HPI: Mrs Christian was kindly referred to me by PRATIK Patel. Her parents, Jesu, and Paty Brown are my patients as well. From a cardiac standpoint, she has a history of hypothyroidism. She is seeing me today for an issue with syncopal spells. Her last true syncopal spell was in 02/10. She woke up in the middle of the night to take her dog to the bathroom. She tried to open the door knob, and remembers waking up on the floor. She had another similar spell when she was up in the night to use the bathroom. At other times, she has felt dizzy when she stands up abruptly. Her echo from 03/15 revealed normal LV size, systolic function . LVEF 65 %. No significant valvular abnormalities were noted. She had normal RV size, systolic function. Her patch monitor results dated 03/02/2023 revealed sinus rhythm with heart rates between 47 to 166 bpm. She had very sporadic supraventricular ectopics with a burden of 0.02%. The longest event comprised of 8 beats of nonsustained supraventricular tachycardia, and the fastest event had a heart rate of 163 bpm. The PVC burden was also very low at 0.03%. Patient recorded events during the monitoring period. I offered use of prn beta lorrie therapy, but she did not want to start it yet. She denies shortness of breath, lightheadedness, dizziness or loss of consciousness. She did admit to some numbness in her left arm, and underwent a neurologic work up. Apparently the workup was negative. She does admit to high caffeine consumption. She does not drink any alcohol though. She is not aware of a family history of sudden cardiac . Her LDL was not at goal based on her lipid panel from 06/13. LDL Cholesterol Date Value Ref Range Status 05/23/2023 120 (H) <100 mg/dL Final Comment: <100 mg/dL, Optimal 100-129 mg/dL, Near optimal/above optimal 130-159 mg/dL, Borderline high 160-189 mg/dL, High >189 mg/dL, Very high Secondary prevention optimal LDL Cholesterol levels are recommended to be < 70 mg/dL PAST MEDICAL HISTORY Diagnosis Date Pain in left shoulder 12/16/2014 Rotator cuff syndrome of left shoulder 12/16/2014 PAST SURGICAL HISTORY Procedure Laterality Date APPENDECTOMY 1984 COLONOSCOPY 08/17/2018 repeat 10 years HYSTERECTOMY HX 09/2013 partial SOCIAL HISTORY Social History Tobacco Use Smoking status: Former Types: Cigarettes Start date: 02/06/2004 Smokeless tobacco: Never Vaping Use Vaping status: Never Used Substance Use Topics Alcohol use: Not Currently Drug use: No FAMILY HISTORY Problem Relation Age of Onset Arthritis Father Kidney Disease Father other (alcoholism) Father Hyperlipidemia Mother other (depression/anxiety) Mother other (substance abuse) Sister half sister Hypertension Brother other (heart disease) Brother other (alcoholism) Brother Breast Cancer Maternal Grandmother also Great GMA Stroke Maternal Grandmother 80 ALLERGIES: ALLERGIES Allergen Reactions Penicillin G Rash itching MEDICATIONS: estradiol (ESTRACE) 1 mg tablet Take 1 tablet by mouth once daily. levothyroxine (SYNTHROID) 50 mcg tablet take 1 tablet by mouth every day citalopram hydrobromide (CELEXA) 10 mg tablet Take 1 tablet by mouth once daily. albuterol HFA (PROVENTIL HFA, VENTOLIN HFA) 90 mcg/actuation inhaler Inhale 2 Puffs as instructed every 4 hours as needed for wheezing/shortness of breath. omega-3/dha/epa/fish oil (OMEGA-3 ORAL) Take 2,000 mg by mouth once daily. cholecalciferol (VITAMIN D3) 5,000 unit tab Take 5,000 Units by mouth once daily. loratadine (CLARITIN) 10 mg tablet Take 10 mg by mouth once daily as needed. REVIEW OF SYSTEMS: GENERAL: Negative for:Weight loss and Weight gain HEENT: Negative for:Nosebleeds RESPIRATORY: Negative for:Shortness of breath GASTROINTESTINAL: Negative for:Blood in stool MUSCULOSKELETAL: Negtive for: Muscle or joint pain, stiffness, Joint swelling SKIN: No rash HEMATOLOGICAL/LYMPHATI C: Negative for: Easy bruising and Easy bleeding CARDIOVASCULAR: As stated in HPI. 10 system review negative except as stated in HPI I barker (more content not included)... Normal [facility] ECG B/O W INTERP (MED OFFICE )on 01-31-2024 Normal sinus rhythm, no ischemic changes. QTc [address] [facility] GREGORIO SCREENING W [facility] 05-31 [facility] T4 FREE/FREE THYROXon 2022 Free T4 [Mass/Vol] 1.1 ng/dL 0.9 - 1.7 ng/dL [facility] TSH BLDon 02-23-2022 TSH Qn 3.970 m[IU]/L 0.270 - 4.200 mIU/L [facility] GREGORIO SCREENING W [facility] 07-15 [facility] SCREENING W [facility] * * *Final Report* * * DATE OF EXAM: Jul 15 2021 2:28PM ANTOINE [id number] - [facility] SCREENING W [facility] / PROCEDURE REASON: Z02.19-Encounter for screening mammogram for breast cancer * * * * Physician Interpretation * * * * #[id number] - [facility] SCREENING W [facility] BILATERAL DIGITAL SCREENING MAMMOGRAM TOMOSYNTHESIS WITH CAD: 07/15/2021 HISTORY: Z02.19-Encounter For Screening Mammogram For Breast Cancer / Screening Mammogram-Patient reports NO symptoms. RESULT: TECHNIQUE: The study was acquired using full field digital technology and interpreted from soft copy. Digital Breast Tomosynthesis (DBT) images were obtained and used to assist in the interpretation of this examination. Current study was also evaluated with a Computer Aided Detection (CAD). Comparison is made to exams dated: 02/02/2016 mammogram, 08/16/2017 mammogram, and 10/23/2018 mammogram. The tissue of both breasts is heterogeneously dense. This may lower the sensitivity of mammography. No significant masses, calcifications, or other findings are seen in either breast. There has been no significant interval change. IMPRESSION: NEGATIVE There is no mammographic evidence of malignancy. A 1 year screening mammogram is recommended. The exam was reviewed by a staff physician. Lynn whipple,by/santiago:07/16/2021 14:07:32 Senior Java Web Application Developer(s): RT Jamel(R)(M), [facility] letter sent: Normal over 40 Mammogram BI-RADS: 1 Negative Multiple national specialty organizations have released breast cancer screening guidelines for women at average risk for developing breast cancer - guidelines that are based on both evidence and opinion, yet differ on when to start and how often to screen for breast cancer. With representation from Breast Imaging, Internal Medicine, Women's Health, Family Medicine, and Medical/Surgical Oncology, the [facility] has carefully reviewed the data and reached the following consensus: 1) All women should engage in shared decision-making with their providers to decide when to start and how often to screen; 2) All women should have the opportunity to start screening mammography at age 40; 3) For women ages 45-55, we recommend annual screening mammograms; 4) For women ages 55 and over, we support both the transition from an annual to a biennial interval if this aligns more with patient's values and preferences, or continuation with annual screening; 5) All women should discuss with their providers when to stop screening mammograms. 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: Santiago Transcribe Date/Time: Jul 15 2021 2:14P Dictated by : NABEEL SOLOMON MD This examination was interpreted and the report reviewed and electronically signed by: LYNN GALINDO MD on Jul 16 2021 2:07PM EST [id number] Normal [facility] XR CHEST 2V FRONTAL/LATon XR CHEST 2V FRONTAL/LAT Final Report DATE OF EXAM: Jan 29 2020 8:36AM LDX [id number] - XR CHEST 2V FRONTAL/LAT / PROCEDURE REASON: multiple diagnoses Physician Interpretation EXAMINATION: CHEST RADIOGRAPH (2 VIEW FRONTAL & LATERAL) CLINICAL HISTORY: SOB (shortness of breath) Chest pain, unspecified type MQ: [id number]_6 EXAM DATE/TIME: 01/29/2020 8:36 AM COMPARISON: No relevant prior studies available. RESULT: Lines, tubes, and devices: None. Lungs and pleura: No consolidation. No lung mass. No pleural effusion. No pneumothorax. Cardiomediastinal silhouette: Normal cardiomediastinal silhouette. Bones and soft tissues: Unremarkable. IMPRESSION: No acute radiographic abnormality. 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: PSCB Transcribe Date/Time: Jan 29 2020 9:47A Dictated by : CHRISTIE QUICK MD This examination was interpreted and the report reviewed and electronically signed by: CHRISTIE QUICK MD on Jan 29 2020 9:47AM EST Normal [facility] MRI BRAIN WO/W IVCONon 09-10 MRI BRAIN WO/W IVCON Final Report DATE OF EXAM: Sep 11 2019 2:57PM LDM [id number] - MRI BRAIN WO/W IVCON / PROCEDURE REASON: multiple diagnoses Physician Interpretation MRI of the brain and cervical spine without contrast. HISTORY: Arm weakness. Numbness and tingling. Headache and dizziness. TECHNIQUE: Routine brain without and with contrast. Routine cervical spine examination without contrast. MR Contrast: Dotarem Contrast Dose: 15 cc Route of Administration: IV COMPARISON: None RESULT: Brain: Diffusion weighted images are normal. There is no blooming susceptibility artifact on gradient echo images to suggest the sequela of intracranial hemorrhage. There is no intracranial mass or mass effect. There is no abnormal enhancement following contrast administration. There are no extra-axial fluid collections. Hypothalamic and pineal regions are normal. Craniovertebral junction is intact. There is no evidence of a pathological marrow replacement process. The ventricles and basal cisterns are normal in size and configuration. Mastoid air cells and paranasal sinuses are grossly clear. Cervical spine: Counting reference: Craniocervical junction. No evidence of pathological marrow replacement process. There is reversal of normal cervical lordosis and grade 1 anterolisthesis C3 on C4 secondary to a diffuse cervical spondylosis. At C2-3, the canal and foramina are patent. At C3-4, there is moderate left foraminal narrowing. Canal and right foramen are patent. At C4-5, there is moderate canal stenosis and mild left foraminal narrowing from endplate and uncinate hypertrophy. At C5-6, there is mild canal narrowing and moderate left foraminal narrowing from endplate hypertrophy and uncinate hypertrophy. At C6-7, there is mild disc height loss and mild canal narrowing and moderate left and minimal right foraminal narrowing from hypertrophic degenerative changes. At C7-T1, the canal and foramina are patent. No cord signal abnormality. Soft tissues outside of the cervical spine are grossly unremarkable. IMPRESSION: NO ACUTE ABNORMALITY BRAIN. NORMAL MRI OF THE BRAIN WITHOUT AND WITH CONTRAST. MODERATELY ADVANCED CHRONIC DEGENERATIVE CHANGES THROUGHOUT THE CERVICAL SPINE DETAILED LEVEL BY LEVEL IN THE BODY THE REPORT 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: PRINCE Transcribe Date/Time: Sep 11 2019 4:19P Dictated by : ANIL RAMESH MD This examination was interpreted and the report reviewed and electronically signed by: ANIL RAMESH MD on Sep 11 2019 4:24PM EST Normal [facility] MRI CERVICAL SPINE WO IVCONo n 09-11-2019 MRI CERVICAL SPINE WO IVCON Final Report DATE OF EXAM: Sep 11 2019 2:59PM LDM [id number] - MRI CERVICAL SPINE WO IVCON / PROCEDURE REASON: multiple diagnoses Physician Interpretation MRI of the brain and cervical spine without contrast. HISTORY: Arm weakness. Numbness and tingling. Headache and dizziness. TECHNIQUE: Routine brain without and with contrast. Routine cervical spine examination without contrast. MR Contrast: Dotarem Contrast Dose: 15 cc Route of Administration: IV COMPARISON: None RESULT: Brain: Diffusion weighted images are normal. There is no blooming susceptibility artifact on gradient echo images to suggest the sequela of intracranial hemorrhage. There is no intracranial mass or mass effect. There is no abnormal enhancement following contrast administration. There are no extra-axial fluid collections. Hypothalamic and pineal regions are normal. Craniovertebral junction is intact. There is no evidence of a pathological marrow replacement process. The ventricles and basal cisterns are normal in size and configuration. Mastoid air cells and paranasal sinuses are grossly clear. Cervical spine: Counting reference: Craniocervical junction. No evidence of pathological marrow replacement process. There is reversal of normal cervical lordosis and grade 1 anterolisthesis C3 on C4 secondary to a diffuse cervical spondylosis. At C2-3, the canal and foramina are patent. At C3-4, there is moderate left foraminal narrowing. Canal and right foramen are patent. At C4-5, there is moderate canal stenosis and mild left foraminal narrowing from endplate and uncinate hypertrophy. At C5-6, there is mild canal narrowing and moderate left foraminal narrowing from endplate hypertrophy and uncinate hypertrophy. At C6-7, there is mild disc height loss and mild canal narrowing and moderate left and minimal right foraminal narrowing from hypertrophic degenerative changes. At C7-T1, the canal and foramina are patent. No cord signal abnormality. Soft tissues outside of the cervical spine are grossly unremarkable. IMPRESSION: NO ACUTE ABNORMALITY BRAIN. NORMAL MRI OF THE BRAIN WITHOUT AND WITH CONTRAST. MODERATELY ADVANCED CHRONIC DEGENERATIVE CHANGES THROUGHOUT THE CERVICAL SPINE DETAILED LEVEL BY LEVEL IN THE BODY THE REPORT 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: PRINCE Transcribe Date/Time: Sep 11 2019 4:19P Dictated by : ANIL RAMESH MD This examination was interpreted and the report reviewed and electronically signed by: ANIL RAMESH MD on Sep 11 2019 4:24PM EST Normal [facility] Total 25-OH Vitamin Don 07-0 Total 25-OH Vitamin D 35.7 ng/mL Normal 30.0-100.0 [facility] Comment on above: Performed By: #### 2 5VD1 #### [place] [address] Comprehensive Panelon 2019 Albumin [Mass/Vol] 4.3 g/dL Normal 3.9-4.9 [facility] Comment on above: Performed By: #### L LP14 #### [facility] [address] [place] [address] ALP [Catalytic activity/Vol] 73 U/L Normal 34-123 [facility] Comment on above: Performed By: #### L LP14 #### [facility] [address] [place] [address] ALT-SGPT Blood 13 U/L Normal 7-38 [facility] Comment on above: Performed By: #### L LP14 #### [place] [address] Anion gap [Moles/Vol] 9 mmol/L Normal 9-18 [facility] Comment on above: Performed By: #### L LP14 #### [facility] [address] [place] [address] AST-SGOT Blood 14 U/L Normal 13-35 [facility] Comment on above: Performed By: #### L LP14 #### [facility] [address] [place] [address] Bilirubin Ql (U) 1.0 mg/dL Normal 0.2-1.3 [facility] Comment on above: Performed By: #### L LP14 #### [facility] [address] [place] [address] Calcium [Mass/Vol] 9.4 mg/dL Normal 8.5-10.2 [facility] Comment on above: Performed By: #### L LP14 #### [facility] [address] [place] [address] Chloride [Moles/Vol] 106 mmol/L High 97-105 [facility] Comment on above: Performed By: #### L LP14 #### [facility] [address] [place] [address] CO2 Blood 25 mmol/L Normal 22-30 [facility] Comment on above: Performed By: #### L LP14 #### [facility] [address] [place] [address] Creatinine [Mass/Vol] 0.91 mg/dL Normal 0.58-0.96 [facility] Comment on above: Performed By: #### L LP14 #### [facility] [address] [place] [address] Glucose [Mass/Vol] 100 mg/dL High 74-99 [facility] Comment on above: Result Comment: The [place] Diabetes Association (ADA) provides guidance for cutoff values for fasting glucose and random glucose. The ADA defines fasting as no caloric intake for at least 8 hours.Fasting plasma glucose results between 100 to 125 mg/dL indicate increased risk for diabetes (prediabetes). Fasting plasma glucose results greater than or equal to 126 mg/dL meet the criteria for diagnosis of diabetes. In the absence of unequivocal hyperglycemia, results should be confirmed by repeat testing. In a patient with classic symptoms of hyperglycemia or hyperglycemic crisis, random plasma glucose results greater than or equal to 200 mg/dL meet the criteria for diagnosis of diabetes. Reference: Standards of Medical Care in Diabetes 2016; [place] Diabetes Association. Diabetes Care. 2016;39(Suppl 1). Performed By: #### L LP14 #### [facility] [address] [place], [place] [address] Potassium [Moles/Vol] 4.1 mmol/L Normal 3.7-5.1 [facility] Comment on above: Performed By: #### L LP14 #### [address] [address] Protein [Mass/Vol] 6.9 g/dL Normal 6.3-8.0 [facility] Comment on above: Performed By: #### L LP14 #### [address] [address] Sodium [Moles/Vol] 140 mmol/L Normal 136-144 [facility] Comment on above: Performed By: #### L LP14 #### [address] [address] Urea nitrogen [Mass/Vol] 13 mg/dL Normal 7-21 [facility] Comment on above: Performed By: #### L LP14 #### [address] [address] Hemogramon 08-22-2019 Erythrocyte distribution width (RBC) [Ratio] 13.2 % Normal 11.5-15.9 [facility] Comment on above: Performed By: #### L CBC #### [address] [address] Hematocrit (Bld) [Volume fraction] 45.5 % Normal 37.0-47.0 [facility] Comment on above: Performed By: #### L CBC #### [address] [address] Hemoglobin (Bld) [Mass/Vol] 15.0 g/dL Normal 12.0-16.0 [facility] Comment on above: Performed By: #### L CBC #### [address], [place] [address] MCH (RBC) [Entitic mass] 30.3 pg Normal 27.0-31.0 [facility] Comment on above: Performed By: #### L CBC #### [facility] [address] [place] [id number] MCHC (RBC) [Mass/Vol] 33.0 % Normal 32.0-36.0 [facility] Comment on above: Performed By: #### L CBC #### [facility] [address] [place] [address] MCV (RBC) [Entitic vol] 91.9 fL Normal 81.0-99.0 [facility] Comment on above: Performed By: #### L CBC #### [place] [address] Platelet mean volume (Bld) [Entitic vol] 10.0 fL Normal 7.1-10.5 [facility] Comment on above: Performed By: #### L CBC #### [place] [address] Platelets (Bld) [#/Vol] 279 thou/cmm Normal 150-400 [facility] Comment on above: Performed By: #### L CBC #### [place] [address] RBC (Bld) [#/Vol] 4.95 mil/cmm Normal 4.20-5.40 [facility] Comment on above: Performed By: #### L CBC #### [place] [address] WBC (Bld) [#/Vol] 5.8 thou/cmm Normal 4.8-10.5 [facility] Comment on above: Performed By: #### L CBC #### [place] [address] Lipid Profile, [place] 08-21 Cholesterol [Mass/Vol] 243 mg/dL High 0-199 [facility] Comment on above: Result Comment: Tota l Cholesterol < 200 mg/dL, Desirable Total Cholesterol 200 to 239 mg/dL, Borderline high Total Cholesterol > 239 mg/dL, High Performed By: #### L LPF #### [facility] [address] [place], [place] [address] Cholesterol in HDL [Mass/Vol] 75 mg/dL Normal [facility] Comment on above: Result Comment: Refe rence Range: HDL Cholesterol 40- 59 mg/dL, Acceptable HDL Cholesterol >59 mg/dL, High; Negative risk factor for coronary heart disease HDL Cholesterol <40 mg/dL, Low; Positive risk factor for coronary heart disease Performed By: #### L LPF #### [facility] [address] [place], [place] [address] Cholesterol in LDL [Mass/Vol] 145 mg/dL High 0-99 [facility] Comment on above: Result Comment: LDL Cholesterol < 100 mg/dL, Optimal LDL Cholesterol 100 to 129 mg/dL, Near optimal/above optimal LDL Cholesterol 130 to 159 mg/dL, Borderline high LDL Cholesterol 160 to 189 mg/dL, High LDL Cholesterol > 189 mg/dL, Very high Secondary prevention optimal LDL Cholesterol levels are recommended to be < 70 mg/dL Performed By: #### L LPF #### [facility] [address] [place], [place] [address] Cholesterol in LDL/Cholesterol in HDL [Mass ratio] 1.93 Normal 0.00-2.53 [facility] Comment on above: Performed By: #### L LPF #### [facility] [address] [place], [place] [address] Cholesterol.total/Cho lesterol in HDL [Mass ratio] 3.24 {ratio} Normal 0.00-5.09 [facility] Comment on above: Performed By: #### L LPF #### [facility] [address] [place], [place] [address] Non-HDL Cholesterol 168 mg/dL High 0-129 [facility] Comment on above: Result Comment: Non HDL Cholesterol < 130 mg/dL, Optimal Non HDL Cholesterol 130 to 159 mg/dL, Near optimal/above optimal Non HDL Cholesterol 160 to 189 mg/dL, Borderline high Non HDL Cholesterol 190 to 219 mg/dL, High Non HDL Cholesterol > 219 mg/dL, Very high Secondary prevention optimal non HDL Cholesterol levels are recommended to be < 100 mg/dL Performed By: #### L LPF #### [facility] [address] [place] [address] Triglyceride Blood 115 mg/dL Normal 0-149 [facility] Comment on above: Result Comment: Trig lycerides < 150 mg/dL, Normal Triglycerides 150 to 199 mg/dL, Borderline high Triglycerides 200 to 499 mg/dL, High Triglycerides > 499 mg/dL, Very high Performed By: #### L LPF #### [facility] [address] [place] [address] VLDL Cholesterol 23 mg/dL Normal 0-29 [facility] Comment on above: Performed By: #### L LPF #### [facility] [address] [place] [address] FASTING TIME 10 Hrs Normal [facility] Comment on above: Performed By: #### L LPF #### [place] [address] MDRD eGFRon 08-22-2019 GFR/1.73 sq M predicted among non-blacks MDRD (S/P/Bld) [Vol rate/Area] mL/min/{1.73_m2} Normal >60mL/min/1.73 m2 [facility] Comment on above: Result Comment: If t he patient is , multiply the result by 1.210. Performed By: #### L GFR #### [facility] [address] [place] [address] TSHon 08-22-2019 TSH Qn 2.690 uIU/mL Normal 0.270-4.200 [facility] Comment on above: Result Comment: Preg coreen: 1st trimester:(9-12 weeks):0.180-2.900 uIU/mL 2nd trimester: 0.110-3.980 uIU/mL 3rd trimester: 0.480-4.710 uIU/mL Patients taking a biotin dose of up to 5 mg/day should refrain from taking biotin for 4 hours prior to sample collection. Patients taking a biotin dose of 5 to 10 mg/day should refrain from taking biotin for 8 hours prior to sample collection. Patients taking a biotin dose > 10 mg/day should consult with their physician or the laboratory prior to having a sample taken. Clinicians should consider biotin interference as a source of error, when clinically suspicious of the laboratory result. Performed By: #### L TSH #### [facility] [address] [place] [id number] XR CERVICAL 4V AP/LAT/OBLon 08-21-2019 XR CERVICAL 4V AP/LAT/OBL Final Report DATE OF EXAM: Aug 21 2019 2:59PM LDX 5311 - XR CERVICAL 4V AP/LAT/OBL / PROCEDURE REASON: multiple diagnoses Physician Interpretation HISTORY: Arm weakness Neck pain . Pt. states strange feeling in bilateral shoulders/arms that started about six months ago, no trauma. TECHNIQUE: XR CERVICAL 4V AP/LAT/OBL Laterality: NOT APPLICABLE Number of different views (projections): 4 COMPARISON: None available. RESULT: There is reversal of the upper cervical spine curvature. There is mild anterolisthesis of C3 on C4. There are multilevel degenerative changes with disc space narrowing, marginal endplate osteophytes and facet joint hypertrophy. There is narrowing of the bilateral C3-C4 through C6-C7 vertebral foramina. The prevertebral soft tissues are unremarkable. No other significant abnormality. - IMPRESSION: Reversal of the upper cervical spine curvature. Degenerative changes with mild anterolisthesis of C3 on C4 and narrowing of the bilateral C3-C4 through C6-C7 vertebral foramina. 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: [facility] Transcribe Date/Time: Aug 21 2019 4:27P Dictated by : CHARLES GIPSON MD This examination was interpreted and the report reviewed and electronically signed by: CHARLES GIPSON MD on Aug 21 2019 4:30PM EST Normal [facility] Vital Signs Date Time Vital Sign Value Performing Clinician Viraji cuong 10-26-2024 14:30-0400 Body mass index (BMI) [Ratio] 27.67 kg/m2 Nathalia Lucia PA-C Work Phone: [facility] 10-26-2024 14:30-0400 Body temperature 97.39 [degF] Nathalia Lucia PA-C Work Phone: [facility] 10-26-2024 14:30-0400 Body weight 80.15 kg Nathalia Khari PA-C Work Phone: [facility] 10-26-2024 14:30-0400 Diastolic blood pressure 86 mm[Hg] Nathalia Khari PA-C Work Phone: [facility] 10-26-2024 14:30-0400 Heart rate 70 /min Nathalia Khari PA-C Work Phone: [facility] 10-26-2024 14:30-0400 SaO2% (BldA) [Mass fraction] 100 % Nathalia Khari PA-C Work Phone: [facility] 10-26-2024 14:30-0400 Systolic blood pressure 127 mm[Hg] Nathalia Khari PA-C Work Phone: [facility] 09-16-2024 11:14-0400 Body height 170.2 cm Magdy Ric ODD JOBS DAY WORKER.SUPPLY CHAIN ANALYST Work Phone: [facility] 09-16-2024 11:14-0400 Body mass index (BMI) [Ratio] 26.88 kg/m2 Magdy Ric ODD JOBS DAY WORKER.SUPPLY CHAIN ANALYST Work Phone: [facility] 09-16-2024 11:14-0400 Body weight 77.84 kg Magdy Castroel ODD JOBS DAY WORKER.SUPPLY CHAIN ANALYST Work Phone: [facility] 09-16-2024 11:14-0400 Diastolic blood pressure 60 mm[Hg] Magdy Ric ODD JOBS DAY WORKER.SUPPLY CHAIN ANALYST Work Phone: [facility] 09-16-2024 11:14-0400 Heart rate 50 /min Magdy Ric ODD JOBS DAY WORKER.SUPPLY CHAIN ANALYST Work Phone: [facility] 09-16-2024 11:14-0400 Respiratory rate 16 /min Magdy Ric ODD JOBS DAY WORKER.SUPPLY CHAIN ANALYST Work Phone: [facility] 09-16-2024 11:14-0400 SaO2% (BldA) [Mass fraction] 100 % Magdy Ric ODD JOBS DAY WORKER.SUPPLY CHAIN ANALYST Work Phone: [facility] 09-16-2024 11:14-0400 Systolic blood pressure 104 mm[Hg] Magdy Larios APRN.SUPPLY CHAIN ANALYST Work Phone: [facility] 07-14-2024 08:25-0400 Body mass index (BMI) [Ratio] 27.36 kg/m2 Bret Slabaugh PA-C Work Phone: [facility] 07-14-2024 08:25-0400 Body temperature 98.6 [degF] Bret Slabaugh PA-C Work Phone: [facility] 07-14-2024 08:25-0400 Body weight 79.25 kg Bret Slabaugh PA-C Work Phone: [facility] 07-14-2024 08:25-0400 Diastolic blood pressure 81 mm[Hg] Bret Slabaugh PA-C Work Phone: [facility] 07-14-2024 08:25-0400 Heart rate 83 /min Bret Slabaugh PA-C Work Phone: [facility] 07-14-2024 08:25-0400 Respiratory rate 16 /min Bret Slabaugh PA-C Work Phone: [facility] 07-14-2024 08:25-0400 SaO2% (BldA) [Mass fraction] 99 % Bret Slabaugh PA-C Work Phone: [facility] 07-14-2024 08:25-0400 Systolic blood pressure 117 mm[Hg] Bret Slabaugh PA-C Work Phone: [facility] 06-10-2024 14:53-0400 Body height 170.2 cm Magdy Larios APRN.SUPPLY CHAIN ANALYST Work Phone: [facility] 06-10-2024 14:53-0400 Body mass index (BMI) [Ratio] 27.53 kg/m2 Magdy Larios APRN.SUPPLY CHAIN ANALYST Work Phone: [facility] 06-10-2024 14:53-0400 Body weight 79.74 kg Magdy Ric ODD JOBS DAY WORKER.SUPPLY CHAIN ANALYST Work Phone: [facility] 06-10-2024 14:53-0400 Diastolic blood pressure 70 mm[Hg] Magdy Ric ODD JOBS DAY WORKER.SUPPLY CHAIN ANALYST Work Phone: [facility] 06-10-2024 14:53-0400 Heart rate 59 /min Magdy Ric ODD JOBS DAY WORKER.SUPPLY CHAIN ANALYST Work Phone: [facility] 06-10-2024 14:53-0400 Respiratory rate 18 /min Magdy Ric ODD JOBS DAY WORKER.SUPPLY CHAIN ANALYST Work Phone: [facility] 06-10-2024 14:53-0400 SaO2% (BldA) [Mass fraction] 100 % Magdy Ric ODD JOBS DAY WORKER.SUPPLY CHAIN ANALYST Work Phone: [facility] 06-10-2024 14:53-0400 Systolic blood pressure 118 mm[Hg] Magdy Ric ODD JOBS DAY WORKER.SUPPLY CHAIN ANALYST Work Phone: [facility] 01-31-2024 11:05-0500 Body height 170.2 cm Nicola Barillas MD Work Phone: [facility] 01-31-2024 11:05-0500 Body mass index (BMI) [Ratio] 25.69 kg/m2 Nicola Barillas MD Work Phone: [facility] 01-31-2024 11:05-0500 Body weight 74.39 kg Nicola Barillas MD Work Phone: [facility] 01-31-2024 11:05-0500 Diastolic blood pressure 70 mm[Hg] Nicola Barillas MD Work Phone: [facility] 01-31-2024 11:05-0500 Heart rate 67 /min Nicola Barillas MD Work Phone: [facility] 01-31-2024 11:05-0500 Respiratory rate 18 /min Nicola Barillas MD Work Phone: [facility] 01-31-2024 11:05-0500 SaO2% (BldA) [Mass fraction] 96 % Nicola Barillas MD Work Phone: [facility] 01-31-2024 11:05-0500 Systolic blood pressure 130 mm[Hg] Nicola Barillas MD Work Phone: [facility] 09-25-2023 09:44-0400 Body height 170.5 cm Yousif Calhoun MD Work Phone: [facility] 09-25-2023 09:44-0400 Body mass index (BMI) [Ratio] 24.49 kg/m2 Yousif Calhoun MD Work Phone: [facility] 09-25-2023 09:44-0400 Body weight 71.2 kg Yousif Calhoun MD Work Phone: [facility] 09-25-2023 09:44-0400 Diastolic blood pressure 79 mm[Hg] Yousif Calhoun MD Work Phone: [facility] 09-25-2023 09:44-0400 Heart rate 51 /min Yousif Calhoun MD Work Phone: [facility] 09-25-2023 09:44-0400 SaO2% (BldA) [Mass fraction] 99 % Yousif Calhoun MD Work Phone: [facility] 09-25-2023 09:44-0400 Systolic blood pressure 125 mm[Hg] Yousif Calhoun MD Work Phone: [facility] 05-23-2023 08:18-0400 Body height 172.7 cm Magdy Ric ODD JOBS DAY WORKER.SUPPLY CHAIN ANALYST Work Phone: [facility] 05-23-2023 08:18-0400 Body temperature 98.2 [degF] Magdy Ric ODD JOBS DAY WORKER.SUPPLY CHAIN ANALYST Work Phone: [facility] 05-23-2023 08:18-0400 Body weight 66.32 kg Magdy Ric ODD JOBS DAY WORKER.SUPPLY CHAIN ANALYST Work Phone: [facility] 05-23-2023 08:18-0400 Diastolic blood pressure 60 mm[Hg] Magdy Ric ODD JOBS DAY WORKER.SUPPLY CHAIN ANALYST Work Phone: [facility] 05-23-2023 08:18-0400 Respiratory rate 18 /min Magdy Ric ODD JOBS DAY WORKER.SUPPLY CHAIN ANALYST Work Phone: [facility] 05-23-2023 08:18-0400 Systolic blood pressure 100 mm[Hg] Magdy Ric ODD JOBS DAY WORKER.SUPPLY CHAIN ANALYST Work Phone: [facility] 08-22-2022 13:03-0400 Body height 172.5 cm Yousif Calhoun MD Work Phone: [facility] 08-22-2022 13:03-0400 Body weight 77.11 kg Yousif Calhoun MD Work Phone: [facility] 08-22-2022 13:03-0400 Diastolic blood pressure 80 mm[Hg] Yousif Calhoun MD Work Phone: [facility] 08-22-2022 13:03-0400 Heart rate 59 /min Yousif Calhoun MD Work Phone: [facility] 08-22-2022 13:03-0400 SaO2% (BldA) [Mass fraction] 100 % Yousif Calhoun MD Work Phone: [facility] 08-22-2022 13:03-0400 Systolic blood pressure 119 mm[Hg] Yousif Calhoun MD Work Phone: [facility] 04-21-2022 09:01-0500 Body height 170.2 cm Magdy Ric ODD JOBS DAY WORKER.SUPPLY CHAIN ANALYST Work Phone: [facility] 04-21-2022 09:01-0500 Body temperature 97.7 [degF] Magdy Ric ODD JOBS DAY WORKER.SUPPLY CHAIN ANALYST Work Phone: [facility] 04-21-2022 09:01-0500 Body weight 78.2 kg Magdy Ric ODD JOBS DAY WORKER.SUPPLY CHAIN ANALYST Work Phone: [facility] 04-21-2022 09:01-0500 Diastolic blood pressure 66 mm[Hg] Magdy Larios ODD JOBS DAY WORKER.SUPPLY CHAIN ANALYST Work Phone: [facility] 04-21-2022 09:01-0500 Heart rate 64 /min Magdy Larios ODD JOBS DAY WORKER.SUPPLY CHAIN ANALYST Work Phone: [facility] 04-21-2022 09:01-0500 Respiratory rate 16 /min Magdy Larios ODD JOBS DAY WORKER.SUPPLY CHAIN ANALYST Work Phone: [facility] 04-21-2022 09:01-0500 SaO2% (BldA) [Mass fraction] 99 % Magdy Larios ODD JOBS DAY WORKER.SUPPLY CHAIN ANALYST Work Phone: [facility] 04-21-2022 09:01-0500 Systolic blood pressure 118 mm[Hg] Magdy Larios ODD JOBS DAY WORKER.SUPPLY CHAIN ANALYST Work Phone: [facility] Encounters Encounter Date Encounter Type Care Provider Facility Start: 11-14-2024 ambulatory [facility] Facility :[facility] Start: 10-26-2024 End: 10-26-2024 Patient encounter procedure Nathalia Lucia PA-C Work Phone: [facility] Comment on above: Perioral dermatitis Start: 10-26-2024 End: 10-26-2024 ambulatory MAGDYRobert LARIOS Facility:[facility] Start: 10-11-2024 End: 10-11-2024 Refill Yousif Calhoun MD Work Phone: Endocrinology Comment on above: Refill Request Start: 09-27-2024 End: 10-01-2024 Follow-up encounter Yousif Calhoun MD Work Phone: Endocrinology Start: 09-27-2024 End: 09-27-2024 ambulatory YOUSIF CALHOUN Facility:[facility] Start: 09-27-2024 End: 09-27-2024 Subsequent hospital visit by physician [facility] Comment on above: Elevated serum creat inine [R79.89] Start: 09-26-2024 End: 09-26-2024 ambulatory YOUSIF CALHOUN Facility:[facility] Start: 09-23-2024 End: 09-23-2024 Telephone encounter Magdy Larios APRN.SUPPLY CHAIN ANALYST Work Phone: [facility] Comment on above: Scheduling (Coronary Calcium scoring) Start: 09-18-2024 End: 09-18-2024 Patient encounter procedure Pulm Fct Lab [facility] Start: 09-18-2024 End: 09-18-2024 ambulatory MAGDY LARIOS [facility] Comment on above: Procedure Start: 09-16-2024 End: 09-23-2024 Follow-up encounter Magdy Larios APRN.SUPPLY CHAIN ANALYST Work Phone: [facility] Comment on above: Results Start: 09-16-2024 End: 09-16-2024 Patient encounter procedure Magdy Larios APRN.SUPPLY CHAIN ANALYST Work Phone: [facility] Comment on above: Elevated serum creat inine (Primary Dx); SOB (shortness of breath) Start: 09-16-2024 End: 09-16-2024 ambulatory MAGDY LARIOS Facility:[facility] Start: 08-07-2024 End: 08-07-2024 Refill Magdy Larios APRN.SUPPLY CHAIN ANALYST Work Phone: [facility] Comment on above: Refill Request Start: 07-23-2024 End: 07-23-2024 Subsequent hospital visit by physician Mammo/Bone Density [facility] Comment on above: Encounter for screen ing mammogram for malignant neoplasm of breast [Z12.31] Start: 07-23-2024 End: 07-23-2024 ambulatory MAGDY LARIOS Facility:[facility] Start: 07-23-2024 End: 07-24-2024 Follow-up encounter Magdy Larios APRN.SUPPLY CHAIN ANALYST Work Phone: [facility] Comment on above: Results Start: 07-14-2024 End: 07-14-2024 Patient encounter procedure Bret Beckwith PA-C Work Phone: [facility] Comment on above: Sinobronchitis (Prim beau Dx); Acute conjunctivitis of right eye, unspecified acute conjunctivitis type Start: 07-14-2024 End: 07-14-2024 ambulatory MAGDY LARIOS Facility:[facility] Start: 07-08-2024 End: 07-08-2024 Telephone encounter Magdy Larios APRN.SUPPLY CHAIN ANALYST Work Phone: [facility] Comment on above: Lab Orders Start: 06-12-2024 End: 06-12-2024 ambulatory Magdy Larios APRN.SUPPLY CHAIN ANALYST Work Phone: [facility] Comment on above: Urine Test Start: 06-10-2024 End: 06-10-2024 ambulatory MAGDY LARIOS Facility:[facility] Start: 06-10-2024 End: 06-10-2024 Patient encounter procedure Magdy Larios APRN.SUPPLY CHAIN ANALYST Work Phone: [facility] Comment on above: Wellness examination (Primary Dx); Anxiety; Depression, unspecified depression type; Acquired hypothyroidism; Arthralgia of both hands; Wheezing; Elevated serum creatinine; Encounter for screening mammogram for malignant neoplasm of breast; Screening for blood or protein in urine Start: 06-10-2024 End: 06-10-2024 Patient encounter status Magdy Larios APRN.SUPPLY CHAIN ANALYST Work Phone: [facility] Start: 06-10-2024 End: 06-10-2024 ambulatory MAGDY LARIOS Facility:[facility] Start: 06-10-2024 Encounter for genera l adult medical examination without abnormal findings MAGDY LARIOS [facility] Start: 06-10-2024 End: 08-10-2024 Follow-up encounter Magdy Larios APRN.SUPPLY CHAIN ANALYST Work Phone: [facility] Comment on above: Results Start: 06-08-2024 End: 06-08-2024 ambulatory MAGDY LARIOS Facility:[facility] Start: 05-30-2024 End: 05-30-2024 ambulatory Magdy Larios APRN.SUPPLY CHAIN ANALYST Work Phone: [facility] Comment on above: Lab work Start: 05-10-2024 End: 05-12-2024 Refill Magdy Larios APRN.CNP Work Phone: [facility] Comment on above: Refill Request Start: 02-28-2024 End: 02-28-2024 ambulatory ANGELA LICEA Facility:[facility] Start: 02-28-2024 End: 02-28-2024 Patient encounter procedure Debora Calvillo MS Work Phone: [facility] Comment on above: Family history of br east cancer (Primary Dx) Start: 01-31-2024 End: 01-31-2024 Patient encounter procedure Nicola Barillas MD Work Phone: [facility] [place] Comment on above: Syncope, unspecified syncope type (Primary Dx); Acquired hypothyroidism; Palpitations; Abnormal electrocardiogram Start: 01-31-2024 End: 01-31-2024 ambulatory NICOLA BARILLAS Facility:[facility] Start: 09-25-2023 End: 09-25-2023 Patient encounter procedure Yousif Calhoun MD Work Phone: Endocrinology Comment on above: Acquired hypothyroid ism (Primary Dx); Vasomotor symptoms due to menopause Start: 08-08-2023 Refill Yousif cooper MD Work Phone: Endocrinology Comment on above: Refill Request Start: 06-16-2023 Telephone encounter Magdy Larios APRN.SUPPLY CHAIN ANALYST Work Phone: [facility] Comment on above: Results (mammogram) Start: 06-15-2023 Documentation procedure Mammog vin Coordinator [place] ANCILLARY AREA NOT LISTED Start: 06-15-2023 Letter encounter Mammography Coordinator [place] ANCILLARY AREA NOT LISTED Start: 06-14-2023 End: 06-14-2023 Subsequent hospital visit by physician Mammo/Bone Density [facility] Comment on above: Encounter for screen ing mammogram for malignant neoplasm of breast [Z12.31] Start: 05-23-2023 End: 05-23-2023 Patient encounter procedure Magdy Larios ODD JOBS DAY WORKER.SUPPLY CHAIN ANALYST Work Phone: [facility] Comment on above: Wellness examination (Primary Dx); Anxiety; Hypothyroidism, unspecified type; Encounter for screening mammogram for malignant neoplasm of breast; Family history of breast cancer Start: 05-23-2023 End: 05-23-2023 Patient encounter status Magdy Larios ODD JOBS DAY WORKER.SUPPLY CHAIN ANALYST Work Phone: [facility] Work Phone: Start: 05-22-2023 ambulatory Magdy spann ODD JOBS DAY WORKER.SUPPLY CHAIN ANALYST Work Phone: [facility] Comment on above: Lab Work Start: 04-30-2023 Refill Magdy spann ODD JOBS DAY WORKER.SUPPLY CHAIN ANALYST Work Phone: [facility] Comment on above: Refill Request Start: 03-05-2023 Telephone encounter Nicola Barillas MD Work Phone: [facility] [place] Comment on above: Results Start: 12-09-2022 ambulatory Magdy spann ODD JOBS DAY WORKER.SUPPLY CHAIN ANALYST Work Phone: [facility] Comment on above: Anxiety Medication Start: 10-27-2022 Telephone encounter Nicola Barillas MD Work Phone: [facility] [place] Comment on above: Appointment (Resched ule f/u appt.) Start: 08-25-2022 Telephone encounter Magdy Larios ODD JOBS DAY WORKER.SUPPLY CHAIN ANALYST Work Phone: [facility] Comment on above: Results Start: 08-22-2022 End: 08-22-2022 Patient encounter procedure Yousif Calhoun MD Work Phone: Endocrinology Comment on above: Acquired hypothyroid ism (Primary Dx); Vasomotor symptoms due to menopause; Fatigue Start: 08-18-2022 Refill Magdy spann ODD JOBS DAY WORKER.SUPPLY CHAIN ANALYST Work Phone: [facility] Comment on above: Refill Request Start: 08-10-2022 Refill Magdy spann APRN.CHAYITO Work Phone: [facility] Comment on above: Refill Request Start: 07-18-2022 Refill Magdy spann APRN.CHAYITO Work Phone: [facility] Comment on above: Refill Request Start: 06-02-2022 Telephone encounter Magdy aLrios APRN.CHAYITO Work Phone: [facility] Comment on above: Results Start: 06-01-2022 Documentation procedure Mammog vin Coordinator [facility] Start: 06-01-2022 Letter encounter Mammography Coordinator [place] ANCILLARY AREA NOT LISTED Start: 05-31-2022 End: 05-31-2022 Subsequent hospital visit by physician Mammo/Bone Density [facility] Comment on above: Encounter for screen ing mammogram for breast cancer [Z12.31] Start: 05-20-2022 Telephone encounter Magdy Larios APRN.SUPPLY CHAIN ANALYST Work Phone: [facility] Comment on above: Referral Request (Ca rdiology referral update-); Curriculum And Assessment Coordinator - Other; Orders Start: 04-21-2022 Telephone encounter Ag Card Work Phone: [facility] Comment on above: New Patient; Appoint ment Start: 04-21-2022 End: 04-21-2022 Patient encounter procedure Magdy aLrios APRN.[place] Work Phone: [facility] Comment on above: Wellness examination (Primary Dx); Hypothyroidism, unspecified type; Anxiety; Palpitations; Hot flashes due to menopause; Screening for deficiency anemia; Encounter for screening for diabetes mellitus; Screening, lipid; Encounter for screening mammogram for breast cancer Start: 04-21-2022 End: 04-21-2022 Patient encounter status Magdy Larios APRN.[place]O Work Phone: [facility] Start: 03-16-2022 Telephone encounter Magdy Larios APRN.CNP Work Phone: [facility] Comment on above: Referral Request Start: 02-22-2022 Telephone encounter Magdy Larios APRN.SUPPLY CHAIN ANALYST Work Phone: [facility] Comment on above: Patient Question Start: 09-09-2021 Telephone encounter Magdy Larios APRN.SUPPLY CHAIN ANALYST Work Phone: [facility] Comment on above: Medical Statement Fo rm Start: 08-28-2021 Refill Magdy spann APRN.SUPPLY CHAIN ANALYST Work Phone: [facility] Comment on above: Refill Request Start: 07-20-2021 Telephone encounter Magdy Larios APRN.SUPPLY CHAIN ANALYST Work Phone: [facility] Comment on above: Results Start: 07-16-2021 Documentation procedure Mammog vin Coordinator [facility] Start: 07-16-2021 Letter encounter Mammography Coordinator [facility] Department Start: 07-15-2021 End: 07-15-2021 Subsequent hospital visit by physician Screen/Diagnostic Mammo [facility] Work Phone: Mammography Comment on above: Encounter for screen ing mammogram for breast cancer [Z12.31] Start: 07-08-2021 Telephone encounter Magdy Larios APRN.SUPPLY CHAIN ANALYST Work Phone: [facility] Comment on above: Orders Start: 07-05-2021 Telephone encounter Magdy Larios APRN.SUPPLY CHAIN ANALYST Work Phone: [facility] Comment on above: Results Start: 06-01-2021 Telephone encounter Magdy Larios APRN.SUPPLY CHAIN ANALYST Work Phone: [facility] Comment on above: Medication Problem Start: 05-28-2021 Refill Magdy spann APRN.SUPPLY CHAIN ANALYST Work Phone: [facility] Comment on above: Refill Request Start: 05-11-2021 Telephone encounter Magdy Larios APRN.SUPPLY CHAIN ANALYST Work Phone: [facility] Comment on above: Orders Start: 02-04-2016 Patient encounter status Kvng Larios APRN.[facility] Work Phone: [facility] Work Phone: Procedures Date Procedure Procedure Detail Performing Clinician Start: 09-18-2024 Brncdilat rspse spmt ry pre&post-brncdilat admn Magdy Larios APRN.SUPPLY CHAIN ANALYST Work Phone: Start: 09-16-2024 Urnls dip stick/tabl et rgnt auto w/o microscopy Magdy Larios APRN.SUPPLY CHAIN ANALYST Work Phone: Start: 07-23-2024 Screening digital br east tomosynthesis bi Magdy Larios APRN.[facility] Work Phone: Start: 06-08-2024 Lipid 1996 panel - S anna or Plasma Magdy Larios APRN.[facility] Work Phone: Start: 01-31-2024 Ecg routine ecg w/le ast 12 lds w/i&r Nicola Barillas MD Work Phone: Start: 05-23-2023 Lipid 1996 panel - S anna or Plasma Magdy Larios APRN.[facility] Work Phone: Start: 08-19-2022 Lipid 1996 panel - S anna or Plasma Magdy Larios APRN.[facility] Work Phone: Start: 05-31-2022 GREGORIO SCREENING W AILEEN Ch ralph Larios APRN.[facility] Work Phone: Start: 05-31-2022 Mammography Mammo/[facility] Hosp Start: 07-15-2021 GREGORIO SCREENING W AILEEN Ch ralph Larios APRN.SUPPLY CHAIN ANALYST Work Phone: Start: 07-15-2021 Mammography Screen[facility] Work Phone: Start: 04-12-2021 Adult depression scr eening assessment Magdy Larios APRN.[facility] Work Phone: Start: 10-23-2018 Mammography Magdy velasquez APRN.[facility] Work Phone: Start: 08-17-2018 Colonoscopy Magdy velasquez MAGAN.[place] Work Phone: Plan of Treatment Date Care Activity Detail Author Start: 06-08-2029 Lipid panel Lipid Screening [facility] Start: 08-17-2028 Colonoscopy COLONOSCOPY [facility] Start: 08-17-2028 COLORECTAL CANCER SCREENING COLORECTAL CANCER SCREENING [facility] Start: 08-17-2028 Screening for malignant neoplasm of colon [facility] Start: 05-22-2028 Lipid panel Lipid Screening [facility] Start: 08-20-2027 Lipid 1996 panel - Serum or Plasma Lipid Screening [facility] Start: 08-20-2027 Lipid panel Lipid Screening [facility] Start: 08-20-2027 LIPID SCREEN LIPID SCREEN [facility] Start: 06-09-2027 Diabetes Screening Diabetes Screening [facility] Start: 05-22-2026 Diabetes Screening Diabetes Screening [facility] Start: 04-12-2026 LIPID SCREEN LIPID SCREEN [facility] Start: 09-26-2025 End: 09-26-2025 Patient encounter procedure 09/26/2025 9:20 AM EDT Office Visit Endocrinology [address] [place] [id number] Yousif Calhoun MD [address] [place], [place] [id number] yearly visit Endocrinology Comment on above: yearly visit Start: 09-16-2025 Annual PCP Team Chronic Disease Visit Annual PCP Team Chronic Disease Visit [facility] Start: 08-19-2025 DIABETES SCREEN DIABETES SCREEN [facility] Start: 08-19-2025 Diabetes Screening Diabetes Screening [facility] Start: 07-23-2025 Screening for malignant neoplasm of breast Mammogram Screening [facility] Start: 06-10-2025 Annual PCP Team Chronic Disease Visit Annual PCP Team Chronic Disease Visit [facility] Start: 06-10-2025 Depression Screening Depression Screening [facility] Comment on above: Postponed from 11/06/1985 (Postponed To Appropriate Date) Start: 06-10-2025 Hepatitis B Vaccine (1 of 3 - 19+ 3-dose series) Hepatitis B Vaccine (1 of 3 - 19+ 3-dose series) [facility] Comment on above: Postponed from 11/06/1986 (Declined at t his time) Start: 06-10-2025 Pneumococcal Vaccine: 50+ (1 of 1 - PCV) Pneumococcal Vaccine: 50+ (1 of 1 - PCV) [facility] Comment on above: Postponed from 11/06/2017 (Declined at t his time) Start: 06-10-2025 Urine microalbumin profile DTaP,Tdap,Td Vaccine (1 - Tdap) [facility] Comment on above: Postponed from 11/06/1986 (Declined at t his time) Start: 09-27-2024 End: 09-27-2024 Patient encounter procedure 09/27/2024 9:00 AM EDT Appointment [facility] [address] [place] [address] Elevated serum creatinine [R79.89] [facility] Comment on above: Elevated serum creatinine [R79.89] Start: 09-26-2024 End: 09-26-2024 Patient encounter procedure 09/26/2024 10:20 AM EDT Office Visit Endocrinology [address] [place] [id number] Yousif Calhoun MD [address] [place] [phone] annual Endocrinology Comment on above: annual Start: 09-18-2024 End: 09-18-2024 ambulatory [facility] Comment on above: full pft Start: 09-16-2024 End: 09-16-2024 Patient encounter procedure 09/16/2024 11:00 AM EDT Office Visit [facility] [address] [place] [address] Magdy Larios, ODD JOBS DAY WORKER.SUPPLY CHAIN ANALYST [address] [place] [address] creatine [facility] Comment on above: creatine Start: 08-13-2024 End: 08-13-2024 Patient encounter procedure 08/13/2024 9:00 AM EDT Office Visit [facility] [address] [place] [address] Magdy Larios ODD JOBS DAY WORKER.SUPPLY CHAIN ANALYST [address] [place] [address] creatine [facility] Comment on above: creatine Start: 07-08-2024 End: 10-07-2024 Renal function 2000 panel - Serum or Plasma RENAL FUNCTION PANEL Lab Routine Elevated serum creatinine Expected: 07/08/2024, Expires: 10/07/2024 [facility] Work Phone: Comment on above: Expected: 07/08/2024, Expires: Start: 07-03-2024 DIABETES SCREEN DIABETES SCREEN [facility] Start: 06-13-2024 Screening for malignant neoplasm of breast Mammogram Screening [facility] Start: 06-10-2024 End: 06-10-2024 Patient encounter procedure 06/10/2024 2:40 PM EDT Office Visit [facility] [address] [place] [address] Magdy Larios ODD JO[employer] DAY WORKER.SUPPLY CHAIN ANALYST [address] [place] [address] Annual health check-up and lab results [facility] Comment on above: Annual health check-up and lab results Start: 05-30-2024 End: 08-29-2024 25-hydroxyvitamin D3 [Mass/volume] in Serum or Plasma VITAMIN D 25 HYDROXY Lab Routine Vitamin D deficiency Expected: 05/30/2024, Expires: 08/29/2024 [facility] Comment on above: Expected: 05/30/2024, Expires: Start: 05-30-2024 End: 08-29-2024 CBC panel - Blood by Automated count COMPLETE BLOOD COUNT Lab Routine Screening for deficiency anemia Expected: 05/30/2024, Expires: 08/29/2024 [facility] Work Phone: Comment on above: Expected: 05/30/2024, Expires: Start: 05-30-2024 End: 08-29-2024 Comprehensive metabolic 2000 panel - Serum or Plasma COMPREHENSIVE METABOLIC PANEL Lab Routine Screening for diabetes mellitus Expected: 05/30/2024, Expires: 08/29/2024 [facility] Comment on above: Expected: 05/30/2024, Expires: Start: 05-30-2024 End: 08-29-2024 Lipid 1996 panel - Serum or Plasma LIPID PANEL, FASTING Lab Routine Screening cholesterol level Expected: 05/30/2024, Expires: 08/29/2024 [facility] Comment on above: Expected: 05/30/2024, Expires: Start: 05-30-2024 End: 08-29-2024 Thyrotropin [Units/volume] in Serum or Plasma THYROID STIMULATING HORMONE Lab Routine Hypothyroidism, unspecified type Expected: 05/30/2024, Expires: 08/29/2024 [facility] Comment on above: Expected: 05/30/2024, Expires: Start: 05-30-2024 End: 08-29-2024 Thyroxine (T4) free [Mass/volume] in Serum or Plasma T4 FREE/FREE THYROXINE Lab Routine Hypothyroidism, unspecified type Expected: 05/30/2024, Expires: 08/29/2024 [facility] Comment on above: Expected: 05/30/2024, Expires: Start: 05-22-2024 Annual PCP Team Chronic Disease Visit Annual PCP Team Chronic Disease Visit [facility] Start: 05-06-2024 DIABETES SCREEN DIABETES SCREEN [facility] Start: 02-28-2024 End: 05-29-2024 EDELMIRATA INVITAE HEREDITARY DIAGNOSTIC CANCER PANEL [facility] Work Phone: Comment on above: Expected: 02/28/2024, Expires: Start: 02-28-2024 End: 02-28-2024 Patient encounter procedure [facility] Comment on above: Family history of breast cancer [Z80.3] Start: 01-31-2024 End: 01-31-2024 Patient encounter procedure 01/31/2024 11:00 AM EST Office Visit [facility] [address] [place] [address] Nicola Barillas MD [address] [facility] [address] [place] [phone] overdue 6 mo f/u [facility] Comment on above: overdue 6 mo f/u Start: 10-22-2023 Influenza vaccination [facility] Start: 09-25-2023 End: 12-25-2023 Thyrotropin [Units/volume] in Serum or Plasma THYROID STIMULATING HORMONE Lab Routine Acquired hypothyroidism Expected: 09/25/2023, Expires: 12/25/2023 [facility] Work Phone: Comment on above: Expected: 09/25/2023, Expires: Start: 09-25-2023 End: 12-25-2023 Thyroxine (T4) free [Mass/volume] in Serum or Plasma T4 FREE/FREE THYROXINE Lab Routine Acquired hypothyroidism Expected: 09/25/2023, Expires: 12/25/2023 [facility] Comment on above: Expected: 09/25/2023, Expires: Start: 09-25-2023 End: 09-25-2023 Patient encounter procedure 09/25/2023 9:40 AM EDT Office Visit Endocrinology [address] [place] [phone] Yousif Calhoun MD [address] [place] [phone] Hypothyroid Follow Up Endocrinology Comment on above: Hypothyroid Follow Up Start: 06-01-2023 Mammography [facility] Start: 06-01-2023 Screening for malignant neoplasm of breast Mammogram Screening [facility] Start: 05-22-2023 End: 08-21-2023 CBC panel - Blood by Automated count CBC Lab Routine Screening for deficiency anemia Expected: 05/22/2023, Expires: 08/21/2023 [facility] Work Phone: Comment on above: Expected: 05/22/2023, Expires: Start: 05-22-2023 End: 08-21-2023 Comprehensive metabolic 2000 panel - Serum or Plasma COMP METABOLIC PANEL Lab Routine Screening for diabetes mellitus Expected: 05/22/2023, Expires: 08/21/2023 [facility] Work Phone: Comment on above: Expected: 05/22/2023, Expires: Start: 05-22-2023 End: 08-21-2023 Lipid 1996 panel - Serum or Plasma LIPID PANEL BASIC Lab Routine Screening cholesterol level Expected: 05/22/2023, Expires: 08/21/2023 [facility] Work Phone: Comment on above: Expected: 05/22/2023, Expires: Start: 05-22-2023 End: 08-21-2023 Thyrotropin [Units/volume] in Serum or Plasma TSH BLD Lab Routine Acquired hypothyroidism Expected: 05/22/2023, Expires: 08/21/2023 [facility] Work Phone: Comment on above: Expected: 05/22/2023, Expires: Start: 05-22-2023 End: 08-21-2023 Thyroxine (T4) free [Mass/volume] in Serum or Plasma T4 FREE/FREE THYROX Lab Routine Acquired hypothyroidism Expected: 05/22/2023, Expires: 08/21/2023 [facility] Work Phone: Comment on above: Expected: 05/22/2023, Expires: Start: 04-22-2023 ANNUAL PCP TEAM CHRONIC DISEASE VISIT ANNUAL PCP TEAM CHRONIC DISEASE VISIT [facility] Start: 04-22-2023 HEPATITIS B (1 of 3 - 3-dose series) HEPATITIS B (1 of 3 - 3-dose series) [facility] Comment on above: Postponed from 1967 (Declined at t his time) Start: 04-22-2023 Hepatitis B Vaccine (1 of 3 - 3-dose series) Hepatitis B Vaccine (1 of 3 - 3-dose series) [facility] Comment on above: Postponed from 1967 (Declined at t his time) Start: 04-22-2023 Urine microalbumin profile [facility] Comment on above: Postponed from 11/06/1986 (Declined at t his time) Start: 02-20-2023 Depression Assessment Depression Assessment [facility] Start: 10-21-2022 Influenza vaccination [facility] Start: 10-03-2022 End: 12-03-2022 Thyrotropin [Units/volume] in Serum or Plasma TSH BLD Lab Routine Acquired hypothyroidism Expected: 10/03/2022, Expires: 12/03/2022 [facility] Work Phone: Comment on above: Expected: 10/03/2022, Expires: Start: 10-03-2022 End: 12-03-2022 Thyroxine (T4) free [Mass/volume] in Serum or Plasma T4 FREE/FREE THYROX Lab Routine Acquired hypothyroidism Expected: 10/03/2022, Expires: 12/03/2022 [facility] Work Phone: Comment on above: Expected: 10/03/2022, Expires: Start: 08-19-2022 Influenza vaccination INFLUENZA (#1) [facility] Comment on above: Postponed from 10/21/2021 (Declined at t his time) Start: 07-19-2022 End: 09-18-2022 CBC panel - Blood by Automated count CBC Lab Routine Screening for deficiency anemia Expected: 07/19/2022, Expires: 09/18/2022 [facility] Work Phone: Comment on above: Expected: 07/19/2022, Expires: Start: 07-19-2022 End: 09-18-2022 Comprehensive metabolic 2000 panel - Serum or Plasma COMP METABOLIC PANEL Lab Routine Screening for diabetes mellitus Expected: 07/19/2022, Expires: 09/18/2022 [facility] Work Phone: Comment on above: Expected: 07/19/2022, Expires: Start: 07-19-2022 End: 09-18-2022 Lipid 1996 panel - Serum or Plasma LIPID PANEL BASIC Lab Routine Screening cholesterol level Expected: 07/19/2022, Expires: 09/18/2022 [facility] Work Phone: Comment on above: Expected: 07/19/2022, Expires: 3 Start: 07-15-2022 Mammography MAMMOGRAM [facility] Start: 04-21-2022 End: 06-21-2022 CBC panel - Blood by Automated count CBC Lab Routine Screening for deficiency anemia Expected: 04/21/2022, Expires: 06/21/2022 [facility] Work Phone: Comment on above: Expected: 04/21/2022, Expires: 3 Start: 04-21-2022 End: 06-21-2022 Comprehensive metabolic 2000 panel - Serum or Plasma COMP METABOLIC PANEL Lab Routine Encounter for screening for diabetes mellitus Expected: 04/21/2022, Expires: 06/21/2022 [facility] Work Phone: Comment on above: Expected: 04/21/2022, Expires: 3 Start: 04-21-2022 End: 06-21-2022 Lipid 1996 panel - Serum or Plasma LIPID PANEL BASIC Lab Routine Screening, lipid Expected: 04/21/2022, Expires: 06/21/2022 [facility] Work Phone: Comment on above: Expected: 04/21/2022, Expires: 3 Start: 04-12-2022 Adult depression screening assessment DEPRESSION SCREENING [facility] Start: 04-12-2022 COVID-19 VACCINE (#1) COVID-19 VACCINE (#1) [facility] Comment on above: Postponed from 11/06/1972 (Declined at t his time) Postponed from 05/06 (Declined at this time) Start: 04-12-2022 COVID-19 VACCINE (1) COVID-19 VACCINE (1) [facility] Comment on above: Postponed from 11/06/1972 (Declined at t his time) Start: 04-12-2022 Urine microalbumin profile DTAP,TDAP,TD (1 - Tdap) [facility] Comment on above: Postponed from 11/06/1986 (Declined at t his time) Start: 02-20-2022 DEPRESSION ASSESSMENT DEPRESSION ASSESSMENT [facility] Start: 10-21-2021 Influenza vaccination [facility] Start: 08-19-2021 Influenza vaccination INFLUENZA (#1) [facility] Comment on above: Postponed from 10/21/2020 (Declined at t his time) Start: 07-08-2021 End: 09-07-2021 LIPID PANEL BASIC LIPID PANEL BASIC Lab Routine Screening, lipid Expected: 07/08/2021, Expires: 09/07/2021 [facility] Work Phone: Comment on above: Expected: 07/08/2021, Expires: 2 Start: 05-11-2021 End: 07-11-2021 Comprehensive metabolic 2000 panel - Serum or Plasma COMP METABOLIC PANEL Lab Routine Elevated serum creatinine Expected: 05/11/2021, Expires: 07/11/2021 [facility] Work Phone: Comment on above: Expected: 05/11/2021, Expires: 2 Start: 05-11-2021 End: 07-11-2021 T4 FREE/FREE THYROX T4 FREE/FREE THYROX Lab Routine Hypothyroidism, unspecified type Expected: 05/11/2021, Expires: 07/11/2021 [facility] Work Phone: Comment on above: Expected: 05/11/2021, Expires: 2 Start: 05-11-2021 End: 07-11-2021 Thyrotropin [Units/volume] in Serum or Plasma TSH BLD Lab Routine Hypothyroidism, unspecified type Expected: 05/11/2021, Expires: 07/11/2021 [facility] Work Phone: Comment on above: Expected: 05/11/2021, Expires: 2 Start: 01-25-2020 SHINGRIX VACCINE (2 of 2) SHINGRIX VACCINE (2 of 2) [facility] Start: 10-24-2019 Mammography MAMMOGRAM [facility] Start: 09-20-2018 PAP TESTING PAP TESTING [facility] Start: 11-06-2017 Pneumococcal Vaccine: 50+ (1 of 1 - PCV) Pneumococcal Vaccine: 50+ (1 of 1 - PCV) [facility] Start: 11-06-2012 COLOGUARD (FIT-DNA) COLOGUARD (FIT-DNA) [facility] Start: 11-06-[address] COLONOGRAPHY [facility] Start: 11-06-2012 FECAL OCCULT BLOOD FECAL OCCULT BLOOD [facility] Start: 11-06-2012 Screening for malignant neoplasm of colon [facility] Start: 11-06-2012 SIGMOIDOSCOPY SIGMOIDOSCOPY [facility] Start: 11-06-1997 HPV TESTING HPV TESTING [facility] Start: 11-06-1986 Hepatitis B Vaccine (1 of 3 - 19+ 3-dose series) Hepatitis B Vaccine (1 of 3 - 19+ 3-dose series) [facility] Start: 11-06-1986 Urine microalbumin profile DTaP,Tdap,Td Vaccine (1 - Tdap) [facility] Start: 11-06-1985 Depression Screening Depression Screening [facility] Start: 1967 HEPATITIS B (1 of 3 - 3-dose series) HEPATITIS B (1 of 3 - 3-dose series) [facility] End: 03-01-2025 CT Heart and Coronary arteries for calcium scoring WO contrast CT CALCIUM SCORING SELF PAY Radiology Routine Abnormal electrocardiogram 1 Occurrences starting 01/31/2024 until 03/01/2025 [facility] Work Phone: Comment on above: 1 Occurrences starting 01/31/2024 until 03/01/2025 End: 06-21-2024 DBT Breast - bilateral screening GREGORIO SCREENING W AILEEN Radiology Routine Encounter for screening mammogram for malignant neoplasm of breast 1 Occurrences starting 05/23/2023 until 06/21/2024 [facility] Work Phone: Comment on above: 1 Occurrences starting 05/23/2023 until 06/21/2024 DBT Breast - bilater al screening GREGORIO SCREENING W AILEEN Radiology Routine Encounter for screening mammogram for malignant neoplasm of breast 06/14/2023 4:16 PM EDT [facility] Work Phone: End: 07-10-2025 DBT Breast - bilateral screening GREGORIO SCREENING W AILEEN Radiology Routine Encounter for screening mammogram for malignant neoplasm of breast 1 Occurrences starting 06/10/2024 until 07/10/2025 [facility] Work Phone: Comment on above: 1 Occurrences starting 06/10/2024 until 07/10/2025 End: 03-02-2024 ECG COMPLETE ECG COMPLETE ECG Routine Palpitations 1 Occurrences starting 04/21/2022 until 04/22/2023 [facility] Work Phone: Comment on above: 1 Occurrences starting 04/21/2022 until 04/22/2023 End: 10-16-2025 LUNG DIFFUSION CAPACITY (DLCO) LUNG DIFFUSION CAPACITY (DLCO) PFT Routine SOB (shortness of breath) 1 Occurrences starting 09/16/2024 until 10/16/2025 [facility] Comment on above: 1 Occurrences starting 09/16/2024 until 10/16/2025 LUNG DIFFUSION CAPACITY (DLCO) LUNG DIFFUSION CAPACITY (DLCO) PFT Routine SOB (shortness of breath) 09/18/2024 1:07 PM EDT [facility] Work Phone: End: 10-16-2025 LUNG VOLUMES LUNG VOLUMES PFT Routine SOB (shortness of breath) 1 Occurrences starting 09/16/2024 until 10/16/2025 [facility] Comment on above: 1 Occurrences starting 09/16/2024 until 10/16/2025 LUNG VOLUMES LUNG VOLUMES PFT Routine SOB (shortness of breath) 09/18/2024 1:07 PM EDT [facility] Work Phone: GREGORIO SCREENING W AILEEN GREGORIO SCREENI NG W AILEEN Radiology Routine Encounter for screening mammogram for breast cancer 07/15/2021 2:28 PM EDT [facility] Work Phone: End: 05-21-2023 GREGORIO SCREENING W AILEEN GREGORIO SCREENING W AILEEN Radiology Routine Encounter for screening mammogram for breast cancer 1 Occurrences starting 04/21/2022 until 05/21/2023 [facility] Work Phone: Comment on above: 1 Occurrences starting 04/21/2022 until 05/21/2023 End: 10-16-2025 SPIROMETRY - BASELINE AND POST DILATOR SPIROMETRY - BASELINE AND POST DILATOR PFT Routine SOB (shortness of breath) 1 Occurrences starting 09/16/2024 until 10/16/2025 [facility] Comment on above: 1 Occurrences starting 09/16/2024 until 10/16/2025 SPIROMETRY - BASELIN E AND POST DILATOR SPIROMETRY - BASELINE AND POST DILATOR PFT Routine SOB (shortness of breath) 09/18/2024 1:07 PM EDT [facility] [facility] Work Phone: UA DIP, URINE (POC) UA DIP, URIN E (POC) Lab Routine Elevated serum creatinine Ordered: 09/16/2024 [facility] Work Phone: Comment on above: Ordered: 09/16/2024 End: 10-16-2025 US Kidney - bilateral and Urinary bladder US KIDNEY/BLADDER Radiology Routine Elevated serum creatinine 1 Occurrences starting 09/16/2024 until 10/16/2025 [facility] Comment on above: 1 Occurrences starting 09/16/2024 until 10/16/2025 US Kidney - bilatera l and Urinary bladder US KIDNEY/BLADDER Radiology Routine Elevated serum creatinine 09/27/2024 9:22 AM EDT [facility] Work Phone: [facility] Immunizations Immunization Date Immunization Notes Care Provider [facility] 12-03-2019 influenza, seasonal, injectable 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 2023 Unknown [id number] 2020 Unknown [employer] PPO OOS [id number] 2020-Present [phone] [id number] [place] [address] PPO [id number] 2020 Unknown [id number] Unknown [id number] Social History Date Type Detail Facility Start: 02-05-2013 End: 09-26-2024 Tobacco smoking status NHIS Ex-smoker [facility] Start: 02-06-2004 History of tobacco use Cigarette Smo ker [facility] Start: 02-05-2013 End: 09-26-2024 Tobacco use and exposure Smokeless tobacco non-user [facility] Start: 04-12-2021 End: 09-26-2024 Alcohol intake Ex-drinker (finding) [facility] Start: 1965 Sex Assigned At Not on file [facility] Start: 04-26-2021 End: 07-15-2021 Exposure to SARS-CoV-2 (event) Not sure [facility] Start: 08-17-2021 End: 08-27-2021 Exposure to SARS-CoV-2 (event) Unable to assess [facility] Start: 02-06-2004 History of tobacco use Current smoke r [facility] Start: 04-21-2022 End: 08-22-2022 History of Social function [facility] Work Phone: Start: 04-21-2022 End: 08-22-2022 Tobacco use panel [facility] Work Phone: Start: 01-09-2013 Adult Depression Screening Assessment 0 [facility] Work Phone: Goals Date Patient Goal Desired Activity /State Personal health goal Clinical Notes 12-16-2014 to 10-26-2024 Nathalia Lucia PA-C - 10/26/2024 3:01 PM EDTPatient Hillary Obrien TECHNOLOGIST - 09/27/2024 9:00 AM EDTTelephone Encounter - Lalitha Hall SCIENTIFIC MANAGER - 09/23/2024 3:47 PM EDT Note Date & Type Note Facility 10-26-2024 Note HNO ID: [id number] Author: NATHALIA LUCIA PA-C Service: ? 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 History of Present Illness: The patient is a 58-year-old female presenting with a flare-up of perioral dermatitis. Perioral Dermatitis: - Recurrent perioral dermatitis, previously treated by Dr. Draper at [facility] years ago with a cream and possibly an oral medication. - Current flare-up began after a dental visit and has worsened over the past 10 days. - Initially localized to two spots, now spreading with multiple pustules causing significant pruritus. - Aggravated by heat and hot flashes; recently exacerbated after hiking in 97-degree weather. - Temporary improvement noted with a Medrol Dosepak prescribed for an unrelated foot injury, but symptoms worsened after completion. - Currently using Band-Aid spray with lidocaine, Neosporin and OTC hydrocortisone cream for pruritus relief. - Denies use of makeup on affected areas; uses natural soap for facial cleansing. Review of Systems: Review of Systems General: (-) F/C Skin: (+) facial pustules, (+) facial pruritus Endocrine: (+) hot flashes Allergies: Allergies: Penicillin G Rash Comment:itching Past Medical History: PAST MEDICAL HISTORY Diagnosis Date - Pain in left shoulder 12/16/2014 - Rotator cuff syndrome of left shoulder 12/16/2014 Past Surgical History: PAST SURGICAL HISTORY Procedure Laterality Date - APPENDECTOMY 1984 - COLONOSCOPY 08/17/2018 repeat 10 years - HYSTERECTOMY HX 09/2013 partial Family History: FAMILY HISTORY Problem Relation Age of Onset - Hyperlipidemia Mother - other (depression/anxiety) Mother - Breast Cancer Mother 71 Common hereditary cancer panel negative - Arthritis Father - Kidney Disease Father - other (alcoholism) Father - Hypertension Brother - other (heart disease) Brother - other (alcoholism) Brother - Breast Cancer Maternal Grandmother 70 - 79 also Great GMA - Stroke Maternal Grandmother 80 - Pancreatic Cancer Paternal Aunt 60 - Breast Cancer Other 80 Tobacco History: Tobacco Use: Types: Cigarettes Medications: Current Outpatient Medications Medication Sig Dispense Refill - estradiol (ESTRACE) 1 mg tablet Take 1 tablet by mouth once daily. 90 tablet 3 - levothyroxine (SYNTHROID) 50 mcg tablet TAKE 1 TABLET BY MOUTH EVERY DAY 90 tablet 3 - citalopram hydrobromide (CELEXA) 10 mg tablet TAKE 1 TABLET BY MOUTH EVERY DAY 90 tablet 1 - albuterol HFA (PROVENTIL HFA, VENTOLIN HFA) 90 mcg/actuation inhaler Inhale 2 puffs as instructed every 4 hours as needed for wheezing/shortness of breath. 1 each 5 - metroNIDAZOLE (METROGEL) 1 % Topical Gel Apply to affected area once daily for 14 days. 60 g 0 No current facility-administered medications for this visit. Vitals: BP 127/86 Pulse 70 Temp 36.3 ?C (97.4 ?F) Wt 80.2 kg (176 lb 11.2 oz) SpO2 100% BMI 27.67 kg/m? Physical Exam: Physical Exam HENT: Head: Comments: Rash General: No acute distress. HEENT: Rash as drawn. Skin: Erythematous papules and pustules on the face, consistent with perioral dermatitis. ASSESSMENT/PLAN: 1. Perioral dermatitis (L71.0) - Advised patient to discontinue all current topical agents, including Band-Aid spray with lidocaine, Neosporin, and asyo-lwu-rfejjrx hydrocortisone cream; instructed to use only soap and water for facial cleansing. - Start topical Metrogel (metronidazole) for 14 days. - Advised patient to follow up with chiropractic teacher if no improvement. - See patient instructions for further recommendations. - Pt education along with discharge instructions given to pt - Discussed Red Flag signs and when to go to ER. - Pt agreeable with plan and verbalizes understanding. - Follow up with PCP if symptoms worsen or do not improve in the next 2-3 days. Nathalia Lucia PA-C 3:05 PM 10/26/24 Differential Diagnoses - Perioral dermatitis is more likely for the following reason(s): suggested by HANDP - Shingles is less likely for the following reason(s): HANDP not suggestive Disposition The patient was discharged. Medical Decision Making: Problems: Low: Acute, uncomplicated illness or injury Risk: Moderate: Drug management Medical Decision Making Level: 3 - Low [facility] 10-26-2024 History of Presen t illness Narrative Images from the original note were not included. 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 History of Present Illness: The patient is a 58-year-old female presenting with a flare-up of perioral dermatitis. Perioral Dermatitis: - Recurrent perioral dermatitis, previously treated by Dr. Draper at [facility] years ago with a cream and possibly an oral medication. - Current flare-up began after a dental visit and has worsened over the past 10 days. - Initially localized to two spots, now spreading with multiple pustules causing significant pruritus. - Aggravated by heat and hot flashes; recently exacerbated after hiking in 97-degree weather. - Temporary improvement noted with a Medrol Dosepak prescribed for an unrelated foot injury, but symptoms worsened after completion. - Currently using Band-Aid spray with lidocaine, Neosporin and OTC hydrocortisone cream for pruritus relief. - Denies use of makeup on affected areas; uses natural soap for facial cleansing. Review of Systems: Review of Systems General: (-) F/C Skin: (+) facial pustules, (+) facial pruritus Endocrine: (+) hot flashes Allergies: Allergies: Penicillin G Rash Comment:itching Past Medical History: PAST MEDICAL HISTORY Diagnosis Date Pain in left shoulder 12/16/2014 Rotator cuff syndrome of left shoulder 12/16/2014 Past Surgical History: PAST SURGICAL HISTORY Procedure Laterality Date APPENDECTOMY 1984 COLONOSCOPY 08/17/2018 repeat 10 years HYSTERECTOMY HX 09/2013 partial Family History: FAMILY HISTORY Problem Relation Age of Onset Hyperlipidemia Mother other (depression/anxiety) Mother Breast Cancer Mother 71 Common hereditary cancer panel negative Arthritis Father Kidney Disease Father other (alcoholism) Father Hypertension Brother other (heart disease) Brother other (alcoholism) Brother Breast Cancer Maternal Grandmother 70 - 79 also Great GMA Stroke Maternal Grandmother 80 Pancreatic Cancer Paternal Aunt 60 Breast Cancer Other 80 Tobacco History: Tobacco Use: Types: Cigarettes Medications: Current Outpatient Medications Medication Sig Dispense Refill estradiol (ESTRACE) 1 mg tablet Take 1 tablet by mouth once daily. 90 tablet 3 levothyroxine (SYNTHROID) 50 mcg tablet TAKE 1 TABLET BY MOUTH EVERY DAY 90 tablet 3 citalopram hydrobromide (CELEXA) 10 mg tablet TAKE 1 TABLET BY MOUTH EVERY DAY 90 tablet 1 albuterol HFA (PROVENTIL HFA, VENTOLIN HFA) 90 mcg/actuation inhaler Inhale 2 puffs as instructed every 4 hours as needed for wheezing/shortness of breath. 1 each 5 metroNIDAZOLE (METROGEL) 1 % Topical Gel Apply to affected area once daily for 14 days. 60 g 0 No current facility-administered medications for this visit. Vitals: BP 127/86 Pulse 70 Temp 36.3 C (97.4 F) Wt 80.2 kg (176 lb 11.2 oz) SpO2 100% BMI 27.67 kg/m Physical Exam: Physical Exam HENT: Head: Comments: Rash General: No acute distress. HEENT: Rash as drawn. Skin: Erythematous papules and pustules on the face, consistent with perioral dermatitis. ASSESSMENT/PLAN: 1. Perioral dermatitis (L71.0) - Advised patient to discontinue all current topical agents, including Band-Aid spray with lidocaine, Neosporin, and fsti-uhd-ptmxcub hydrocortisone cream; instructed to use only soap and water for facial cleansing. - Start topical Metrogel (metronidazole) for 14 days. - Advised patient to follow up with chiropractic teacher if no improvement. - See patient instructions for further recommendations. - Pt education along with discharge instructions given to pt - Discussed Red Flag signs and when to go to ER. - Pt agreeable with plan and verbalizes understanding. - Follow up with PCP if symptoms worsen or do not improve in the next 2-3 days. Nathalia Lucia PA-C 3:05 PM 10/26/24 Differential Diagnoses - Perioral dermatitis is more likely for the following reason(s): suggested by H&P - Shingles is less likely for the following reason(s): H&P not suggestive Disposition The patient was discharged. Medical Decision Making: Problems: Low: Acute, uncomplicated illness or injury Risk: Moderate: Drug management Medical Decision Making Level: 3 - Low documented in this encounter [facility] 10-26-2024 Instructions Nathalia Lucia PA-C - 10/26/2024 2:56 PM EDT Overview Stop everything, but natural soap/water. Apply light layer of Metrogel once daily at bedtime. Follow up with Dermatology What is perioral (periorificial) dermatitis? What does it look like? Perioral (periorificial) dermatitis is a red rash that circles your mouth. Your skin can be scaly, dry and flaky with swollen, inflamed bumps called papules. It is one of many types of dermatitis. Perioral dermatitis can look like acne and is often mistaken for it. Some people report that perioral dermatitis itches or gonzalez. Sometimes it spreads up to the nose and eyes and, very rarely, the genitals. In the word perioral, luis means around and oral means mouth. The word literally means around the mouth. In the word periorificial, orifical means orifice or an opening. Around an opening is the meaning of periorificial. The two words refer to the same condition. What are the types of perioral dermatitis? There is typical perioral dermatitis, and then there is granulomatous perioral dermatitis. Granulomatous is not a type perioral dermatitis, but an irregular version of it. If you have granulomatous dermatitis then you ll see yellowish bumps instead of red ones. Children are more prone to have granulomatous dermatitis than adults. Where does perioral (periorificial) dermatitis most commonly occur? Perioral dermatitis is easily recognizable by the location of the rash around your mouth. It can also go on your eyelids or around your eyes and nose. Rarely, it will appear on your genitals. Rarer still, it may move to the ears, neck, scalp, trunk and extremities. Can perioral dermatitis become rosacea? Perioral dermatitis can return after treatment. This happens even when it was successfully treated. Many cases that return can turn into rosacea, a skin condition that causes red papules in the middle of your face, including on your nose. Who is at risk of getting perioral dermatitis? You re most at risk if you re a woman between 25 and 45 who uses topical steroids, face creams and more (see the Causes section). However, children and men can develop perioral dermatitis, too. Is perioral dermatitis contagious? No. No type of dermatitis is contagious. It can t be spread to another person. Is perioral dermatitis a fungal infection? Overuse of topical steroids is the most likely cause of perioral dermatitis. However, there are a number of theories and the exact cause is yet to be determined. One theory is that perioral dermatitis is caused by chaka albicans. Chaka albicans is a yeast, which is a type of fungus. Is perioral dermatitis (periorificial) a bacterial infection? The exact cause of perioral dermatitis is unknown, but there are many theories. One theory is that this skin condition is caused by follicular fusiform, a type of bacteria. Symptoms and Causes What causes perioral dermatitis? The exact cause is to be determined, but experts have noted 13 possible causes of perioral dermatitis: Steroids: Topical steroid creams. Inhaled prescription steroid sprays. Lifestyle choices: Moisturizers and heavy face creams. Fluorinated toothpaste. Gum chewing. Dental fillings. Other: Hormonal changes (or oral contraceptives). Dysfunction of the epidermal barrier. Problems with the immune system. Altered cutaneous microflora. Bacteria - follicular fusiform. Chaka albicans. Demodex mites. What are the symptoms of perioral dermatitis? The primary symptom of perioral dermatitis is a red rash around your mouth. The rash may be scaly or dry and flaky. Often there are inflamed bumps that are called papules. Additionally, you may develop vesicles (clear fluid-filled bumps) or pustules (white fluid-filled bumps). Although it is usually found around the mouth, perioral dermatitis can also move to your eyelids, or around your eyes and nose. It can also appear on your genitals, scalp, ears, neck, extremities and trunk. The rash can cause an itching or burning sensation. Some people experience conjunctivitis (pink eye) when they have perioral dermatitis. If you have pink eye then your healthcare provider may refer you to an eye doctor (an hand cigar making supervisor). Can perioral dermatitis be caused by stress? Yes. Stress can sometimes cause some types of dermatitis. Does perioral dermatitis hurt? Sometimes it itches, and sometimes it gonzalez. This is not true for all people. What aggravates perioral dermatitis? Triggers for perioral dermatitis may differ for different people. If you continue doing what is causing your personal perioral dermatitis (using topical steroids, etc.) then your condition may worsen. Do certain foods worsen or improve perioral (periorificial) dermatitis? No food or drink is known to cause or worsen perioral dermatitis. However, in some cases, chewing gum has been linked to the rash. Work with your healthcare provider to figure out the cause of your perioral dermatitis so that you can avoid that cause in the future - if possible. Is perioral dermatitis permanent? Perioral dermatitis may be permanent if you don t get treatment. Most cases eventually resolve, but this can take weeks to years. If you do get treatment, your symptoms and rash are likely to go away much sooner. However, there is no known reproducible cure for perioral dermatitis. (It might return.) Diagnosis and Tests How is perioral dermatitis diagnosed? What tests are done? A visual examination by your healthcare provider is usually all you ll need for a diagnosis of perioral dermatitis. Once in a while a skin biopsy is taken to distinguish perioral from other types of dermatitis such as atopic dermatitis and contact dermatitis. What questions might my healthcare provider ask to diagnose perioral (periorificial) dermatitis? Is there a rash somewhere other than your face? How long have you had the rash? Do you use topical steroids? Does your rash itch? Does your rash burn? Do you have any other types of dermatitis or other skin conditions? Do you see a chiropractic teacher? Management and Treatment How is perioral dermatitis treated? What medicines help? First, you must stop using any products that might be causing your perioral dermatitis. Stop the following: Topical and inhaled steroids. This includes both jxct-lai-bcnotgw and prescribed steroids. If your healthcare provider has prescribed a steroid, ask if you can switch to a different medication. Face creams, including moisturizers. Cosmetics (makeup). Sunscreen. Fluorinated toothpaste (toothpaste without fluoride can be found at [employer] stores). Chewing gum. Your perioral dermatitis might flare up after you stop a topical steroid. Some experts recommend going back on a topical steroid that is not as strong as what you may be using. Discuss this with your healthcare provider. Your perioral dermatitis may get worse before it gets better. There are several medications that can help your perioral dermatitis. Unfortunately, these medications may not fix the problem for weeks or months. Your healthcare provider may recommend one or more of the following: Topical (applied to the skin) medications: Erythromycin gel. Clindamycin lotion or gel. Metronidazole cream or gel. Pimecrolimus. Azelaic acid. Sulfur preparations. Tacrolimus ointment. Pimecrolimus. Adapalene. Photodynamic therapy using a 5-aminolevulinic acid as a photosensitizer. Sometimes oral antibiotics are prescribed. They help with inflammation. Oftentimes, topical medications are used at the same time as the antibiotics. Oral (by mouth) antibiotic medications: Tetracycline. Doxycycline. Minocycline. Oral erythromycin. (For preadolescents and women.) Oral low-dose isotretinoin. Is there a cure for perioral dermatitis? Perioral dermatitis may be with you for months or even years. There is no cure, but long-term remissions are possible. Sometimes the rash disappears, then reappears. The same treatments that worked the first time are likely to work again. Are there complications/side effects of treatment? Your rash might get worse after you stop using a topical steroid. This is normal. Don t resume using it unless your healthcare provider tells you to do this. The flare-up will fade with time. Should I see a chiropractic teacher? You might need the help of a chiropractic teacher if your rash doesn t disappear after you ve stopped topical steroids. How soon after treatment will my symptoms improve? It may take days, weeks, or months for your symptoms to go away. [place] / Prognosis What can I expect if I ve been diagnosed with perioral dermatitis? Expect that you ll have to abide by a treatment plan worked out with your healthcare provider. Every treatment plan is different. You might need topical medications or oral medications, or you might simply need to stop doing what s causing the rash (such as stop taking topical steroids). However, most of the time a treatment regimen that effectively controls the perioral dermatitis can be found. Remember -- your perioral dermatitis will get worse before it gets better when you stop taking topical steroids. This is normal, and expected. How long will I have perioral (periorificial) dermatitis? Perioral dermatitis may stay with you for months or even years. Can perioral dermatitis go away on its own? This can happen. If you stop all steroids, you might find that the rash and symptoms disappear. Can perioral dermatitis get worse? Yes, perioral dermatitis can get worse if you do not follow your healthcare provider s treatment plan. Prevention How can I reduce my risk of perioral (periorificial) dermatitis? Avoid topical steroids and face creams. See your healthcare provider as soon as possible after you notice symptoms of a rash around your mouth, especially if the rash causes itchiness and burning. After the rash is gone, only use a mild soap (fragrance-free) or soap substitute when you wash. Don t go back to using products you used before the rash. documented in this encounter [facility] 09-27-2024 History of Presen t illness Narrative Radiology Service Progress Note PATIENT NAME: Gayle Christian DATE OF SERVICE: September 27, 2024 TIME: 9:23 AM PATIENT IDENTITY VERIFICATION COMPLETED USING TWO (2) IDENTIFIERS: Name and Date of confirmed by patient verbally. FALL SCREENING: Has the patient had 2 falls in the last year or 1 fall with injury or currently using an Ambulatory Assistive Device (Walker, Cane, Wheelchair, Crutches, etc.)? No PATIENT GENDER DATA: Assigned female at . status: : No status: NO. PATIENT RELEVANT IMPLANT DATA REVIEWED: Yes PATIENT PRESENTS WITH AN IMPLANTABLE OR ATTACHED POLICE OR PATROL PARK OFFICER: No RADIOLOGY DEPARTMENT: Ultrasound PERIPHERAL IV DATA: Not applicable SIGNED BY: TECHNOLOGIST Phoebe September 27, 2024 9:23 AM documented in this encounter [facility] 09-27-2024 Note HNO ID: [id number] Author: HILLARY NAIDU TECHNOLOGIST Service: ? Author Type: Technologist Type: Progress Notes Filed: 09/27/2024 09:23 Note Text: Radiology Service Progress Note PATIENT NAME: Gayle Christian DATE OF SERVICE: September 27, 2024 TIME: 9:23 AM PATIENT IDENTITY VERIFICATION COMPLETED USING TWO (2) IDENTIFIERS: Name and Date of confirmed by patient verbally. FALL SCREENING: Has the patient had 2 falls in the last year or 1 fall with injury or currently using an Ambulatory Assistive Device (Walker, Cane, Wheelchair, Crutches, etc.)? No PATIENT GENDER DATA: Assigned female at . status: : No status: NO. PATIENT RELEVANT IMPLANT DATA REVIEWED: Yes PATIENT PRESENTS WITH AN IMPLANTABLE OR ATTACHED POLICE OR PATROL PARK OFFICER: No RADIOLOGY DEPARTMENT: Ultrasound PERIPHERAL IV DATA: Not applicable SIGNED BY: TECHNOLOGIST Phoebe September 27, 2024 9:23 AM [facility] 09-26-2024 Note HNO ID: [id number] Author: YOUSIF CALHOUN MD Service: ? 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 Is on ERT for severe menopausal symptoms, started in 2019. Still having hot flashes. No alcohol use, ex-smoker. Has family history of breast cancer. Has stopped taking a vitamin D supplement. Has had interval weight gain. Is exercising frequently. Does one 24-hour fast per week. Current Outpatient Medications on File Prior to Visit Medication Sig levothyroxine (SYNTHROID) 50 mcg tablet TAKE 1 TABLET BY MOUTH EVERY DAY citalopram hydrobromide (CELEXA) 10 mg tablet TAKE 1 TABLET BY MOUTH EVERY DAY albuterol HFA (PROVENTIL HFA, VENTOLIN HFA) 90 mcg/actuation inhaler Inhale 2 puffs as instructed every 4 hours as needed for wheezing/shortness of breath. estradiol (ESTRACE) 1 mg tablet Take 1 tablet by mouth once daily. ALLERGIES Allergen Reactions Penicillin G Rash itching PAST MEDICAL HISTORY Diagnosis Date Pain in left shoulder 12/16/2014 Rotator cuff syndrome of left shoulder 12/16/2014 PAST SURGICAL HISTORY Procedure Laterality Date APPENDECTOMY 1984 COLONOSCOPY 08/17/2018 repeat 10 years HYSTERECTOMY HX 09/2013 partial FAMILY HISTORY Problem Relation Age of Onset Hyperlipidemia Mother other (depression/anxiety) Mother Breast Cancer Mother 71 Common hereditary cancer panel negative Arthritis Father Kidney Disease Father other (alcoholism) Father Hypertension Brother other (heart disease) Brother other (alcoholism) Brother Breast Cancer Maternal Grandmother 70 - 79 also Great GMA Stroke Maternal Grandmother 80 Pancreatic Cancer Paternal Aunt 60 Breast Cancer Other 80 Social History Tobacco Use Smoking status: Former Types: Cigarettes Start date: 02/06/2004 Smokeless tobacco: Never Vaping Use Vaping status: Never Used Substance Use Topics Alcohol use: Not Currently Drug use: No Answers submitted by the patient for this visit: Core Review of Systems (Submitted on 09/19/2024) Fever: No Night sweats: Yes Recent unintentional weight change: Yes Nasal Congestion: No Hearing Loss: No Vision Disturbance: Yes A cough: No Difficulty Breathing?: Yes Chest pain: No Irregular heartbeat: Yes Leg Swelling: No Nausea: No Diarrhea: No Black tarry stools: No Difficulty Urinating?: No Awaken at Night More Than Once to Urinate?: No Joint pain or stiffness: Yes Muscle aches: Yes Leg or Foot Discomfort at Night?: Yes A rash: No Dizziness: Yes Headaches: No Memory Loss: No Seizures: No BP 116/74 Pulse 65 Resp 16 Ht 170.2 cm (5' 7.01) Wt 77.7 kg (171 lb 4.8 oz) SpO2 97% BMI 26.82 kg/m? General appearance: Well-appearing overweight female, alert, in no acute distress, well-hydrated, well nourished. BP normal, pulse regular. Weight up 15 pounds since 09/2023. Height stable. Skin: Skin color, texture, turgor normal, no suspicious rashes or lesions Head: normocephalic, no masses, lesions, tenderness or abnormalities Eyes: Anicteric sclera. Pupils are equally round. Extraocular movements are intact. Ears: not examined Nose/Sinuses: Nares normal. No drainage or sinus tenderness. Oropharynx: Lips, mucosa, and tongue normal, teeth and gums not examined. Neck: Supple, no adenopathy; no palpable thyroid enlargement. Lungs: Breathing unlabored. Heart: RRR. No ectopy Abdomen: deferred Extremities: No deformities, edema, skin discoloration, clubbing or cyanosis. Good capillary refill. Musculoskeletal: Spine range of motion not tested. Muscular strength intact, No joint swelling, deformity, or tenderness Peripheral pulses: Normal Neuro: Gait normal. Sensation grossly intact. Latest Reference Range AND Units 06/08/24 08:14 07/23/24 14:09 Sodium 136 - 144 mmol/L 141 140 Potassium 3.7 - 5.1 mmol/L 4.4 3.7 Chloride 98 - 107 mmol/L 104 103 CO2 22 - 30 mmol/L 28 27 BUN 7 - 21 mg/dL 17 17 Creatinine 0.58 - 0.96 mg/dL 1.10 (H) 1.02 (H) Glucose 74 - 99 mg/dL 100 (H) 74 Protein, Total 6.3 - 8.0 g/dL 6.6 Calcium 8.5 - 10.2 mg/dL 9.6 9.6 Phosphorus 2.7 - 4.8 mg/dL 2.9 Albumin 3.9 - 4.9 g/dL 4.1 4.0 Bilirubin, Total 0.2 - 1.3 mg/dL 0.8 Alkaline Phosphatase 34 - 123 U/L 106 ALT 7 - 38 U/L 20 AST 13 - 35 U/L 20 Anion Gap 8 - 15 mmol/L 9 10 eGFR >=60 mL/min/1.73m? 59 (L) 65 CRP <0.9 mg/dL Cholesterol, Total <200 mg/dL 258 (H) Triglyceride <150 mg/dL 101 HDL Cholesterol >39 mg/dL 80 LDL Cholesterol, Calculated <100 mg/dL 158 (H) Vitamin D 25 Hydroxy >=30.0 ng/mL 46.9 Free T4 0.9 - 1.7 ng/dL 1.1 TSH 0.270 - 4.200 mIU/L 2.300 (H): Data is abnormally high (L): Data is abnormally low IMPRESSION: Primary hypothyroidism - check TFTs on the current levothyroxine dose Menopause on ERT - continue ERT for danyell (more content not included)... [facility] 09-23-2024 Telephone encounter Note [email or web address] message sent to pt. Lalitha Hall LPN [facility] 09-23-2024 Miscellaneous Notes Rosalind message sent to pt. Lalitha Hall LPN ----- Message from Magdy Larios APRN.SUPPLY CHAIN ANALYST sent at 09/22/2024 8:31 PM EDT ----- Results show small peripheral airway obstruction with improvement noted with medication. This can be seen in asthma or COPD. I recommend she take her inhaler prior to activity, exercise etc. documented in this encounter [facility] 09-23-2024 Telephone encounter Note ----- Message from Magdy Larios APRN.SUPPLY CHAIN ANALYST sent at 09/22/2024 8:31 PM EDT ----- Results show small peripheral airway obstruction with improvement noted with medication. This can be seen in asthma or COPD. I recommend she take her inhaler prior to activity, exercise etc. [facility] 09-23-2024 Telephone encounter Note Order faxed to [facility] (2nd time). Patient notified that order has been faxed that she can call and schedule. Laura Gregg [facility] 09-23-2024 Miscellaneous Notes Order faxed to [facility] (2nd time). Patient notified that order has been faxed that she can call and schedule. Laura Gregg Pt left message that she called [facility] to scheduled her Coronary Calcium score but was not able. Per pt she was told that office needs to send fax to them first before they can schedule the Coronary Calcium Score. Lalitha Hall LPN documented in this encounter [facility] 09-23-2024 Telephone encounter Note Pt left message that she called [facility] to scheduled her Coronary Calcium score but was not able. Per pt she was told that office needs to send fax to them first before they can schedule the Coronary Calcium Score. Lalitha Hall LPN [facility] 09-18-2024 Note HNO ID: [id number] Author: SADIA ENG RRT Service: ? Author Type: Registered Resp Therapist Type: Progress Notes Filed: 09/18/2024 14:31 Note Text: PULM FUNCTION: Provider: Otto Rudolph MD Assisting Tech: Sadia Eng RRT Spirometry w/BD: 1 DLCO: 1 LV - Gas: 1 [facility] 09-18-2024 History of Presen t illness Narrative PULM FUNCTION: Provider: Otto Rudolph MD Assisting Tech: Sadia Eng RRT Spirometry w/BD: 1 DLCO: 1 LV - Gas: 1 documented in this encounter [facility] 09-16-2024 Note HNO ID: [id number] Author: MAGDY LARIOS APRN.SUPPLY CHAIN ANALYST Service: ? Author Type: Nurse Practitioner Type: Progress Notes Filed: 09/16/2024 13:44 Note Text: Matthew Christian is a 58 year old female here today for follow up on her creatinine. PMH hypothyroidism, anxiety, palpitations. Dyspnea: - Dyspnea on exertion, particularly during running. - Previously able to run 30 minutes without stopping; now needs to stop at 18-24 minutes. - Requires intermittent walking during runs to catch breath. - Denies cough. - Reports multiple COVID-19 infections, believes each infection has worsened her breathing. - Has a history of viral-induced asthma; uses an inhaler PRN but reports it causes a burning sensation. - Former smoker, quit in 2005; smoked from high school until age 32. - No alcohol consumption for 7 years. Menopause: - Experiencing severe hot flashes with associated headaches, occurring in double digits daily. - On estradiol therapy with minimal relief. - Reports weight gain and difficulty losing weight despite regular exercise and a controlled diet. - Exercises twice daily, 45 minutes each session. - Drinks 0.5-1 gallon of water daily. - Reports heart palpitations. - Has an upcoming appointment with Dr. Nice next . CKD: - Chronic elevated creatinine levels for 3 years. - Recent GFR was 65 mL/min/1.73 m?. - Denies regular use of NSAIDs; recently took ibuprofen for foot pain. Arthritis: - Reports inability to make a tight fist and enlarged knuckles. - Recent lab work showed normal inflammation markers. Urinary Symptoms: - Reports bladder pain described as pressure pain x10 days, onset after using a hot tub. - Denies dysuria, hematuria, vaginal bleeding, fevers, or chills. - Reports flank pain, uncertain if related to exercise or another cause. Foot Pain: - Severe foot pain, unable to walk comfortably. - Has an appointment with a road inspector next . Constipation: - Chronic constipation, managed with magnesium supplements and increased water intake. ALLERGIES Allergen Reactions Penicillin G Rash itching Current Outpatient Medications Medication Sig Dispense Refill levothyroxine (SYNTHROID) 50 mcg tablet TAKE 1 TABLET BY MOUTH EVERY DAY 90 tablet 3 citalopram hydrobromide (CELEXA) 10 mg tablet TAKE 1 TABLET BY MOUTH EVERY DAY 90 tablet 1 albuterol HFA (PROVENTIL HFA, VENTOLIN HFA) 90 mcg/actuation inhaler Inhale 2 puffs as instructed every 4 hours as needed for wheezing/shortness of breath. 1 each 5 estradiol (ESTRACE) 1 mg tablet Take 1 tablet by mouth once daily. 90 tablet 3 omega-3/dha/epa/fish oil (OMEGA-3 ORAL) Take 2,000 mg by mouth once daily. cholecalciferol (VITAMIN D3) 5,000 unit tab Take 5,000 Units by mouth once daily. (Patient not taking: Reported on 09/16/2024) loratadine (CLARITIN) 10 mg tablet Take 10 mg by mouth once daily as needed. (Patient not taking: Reported on 09/16/2024) No current facility-administered medications for this visit. ACTIVE PROBLEM LIST Anxiety Hypothyroidism Vasomotor Symptoms Due to Menopause Fatigue Syncope Palpitations PAST MEDICAL HISTORY Diagnosis Date Pain in left shoulder 12/16/2014 Rotator cuff syndrome of left shoulder 12/16/2014 PAST SURGICAL HISTORY Procedure Laterality Date APPENDECTOMY 1984 COLONOSCOPY 08/17/2018 repeat 10 years HYSTERECTOMY HX 09/2013 partial Social History Tobacco Use Smoking status: Former Types: Cigarettes Start date: 02/06/2004 Smokeless tobacco: Never Vaping Use Vaping status: Never Used Substance Use Topics Alcohol use: Not Currently Drug use: No Family History Problem Relation Age of Onset Hyperlipidemia Mother other (depression/anxiety) Mother Breast Cancer Mother 71 Common hereditary cancer panel negative Arthritis Father Kidney Disease Father other (alcoholism) Father Hypertension Brother other (heart disease) Brother other (alcoholism) Brother Breast Cancer Maternal Grandmother 70 - 79 also Great GMA Stroke Maternal Grandmother 80 Pancreatic Cancer Paternal Aunt 60 Breast Cancer Other 80 Review of Systems Constitutional: Negative for activity change, appetite change, chills, fatigue, fever and unexpected weight change. Respiratory: Negative for cough, shortness of breath and wheezing. Cardiovascular: Negative for chest pain, palpitations and leg swelling. Gastrointestinal: Positive for abdominal pain and constipation. Negative for diarrhea, nausea, rectal pain and vomiting. Lower pelvic/bladder Genitourinary: Negative for difficulty urinating, dyspareunia, dysuria, flank pain, frequency, genital sores, hematuria, pelvic pain, urgency, vaginal bleeding, vaginal discharge and vaginal pain. Neurological: Negative for dizziness, light-headedness and headaches. Hematological: Does not bruise/bleed easily. Psychiatric/Behavioral: Negative for confusion and dyspho (more content not included)... [facility] 09-16-2024 History of Presen t illness Narrative Matthew Christian is a 58 year old female here today for follow up on her creatinine. PMH hypothyroidism, anxiety, palpitations. Dyspnea: - Dyspnea on exertion, particularly during running. - Previously able to run 30 minutes without stopping; now needs to stop at 18-24 minutes. - Requires intermittent walking during runs to catch breath. - Denies cough. - Reports multiple COVID-19 infections, believes each infection has worsened her breathing. - Has a history of viral-induced asthma; uses an inhaler PRN but reports it causes a burning sensation. - Former smoker, quit in 2005; smoked from high school until age 32. - No alcohol consumption for 7 years. Menopause: - Experiencing severe hot flashes with associated headaches, occurring in double digits daily. - On estradiol therapy with minimal relief. - Reports weight gain and difficulty losing weight despite regular exercise and a controlled diet. - Exercises twice daily, 45 minutes each session. - Drinks 0.5-1 gallon of water daily. - Reports heart palpitations. - Has an upcoming appointment with Dr. Nice next . CKD: - Chronic elevated creatinine levels for 3 years. - Recent GFR was 65 mL/min/1.73 m . - Denies regular use of NSAIDs; recently took ibuprofen for foot pain. Arthritis: - Reports inability to make a tight fist and enlarged knuckles. - Recent lab work showed normal inflammation markers. Urinary Symptoms: - Reports bladder pain described as pressure pain x10 days, onset after using a hot tub. - Denies dysuria, hematuria, vaginal bleeding, fevers, or chills. - Reports flank pain, uncertain if related to exercise or another cause. Foot Pain: - Severe foot pain, unable to walk comfortably. - Has an appointment with a road inspector next . Constipation: - Chronic constipation, managed with magnesium supplements and increased water intake. ALLERGIES Allergen Reactions Penicillin G Rash itching Current Outpatient Medications Medication Sig Dispense Refill levothyroxine (SYNTHROID) 50 mcg tablet TAKE 1 TABLET BY MOUTH EVERY DAY 90 tablet 3 citalopram hydrobromide (CELEXA) 10 mg tablet TAKE 1 TABLET BY MOUTH EVERY DAY 90 tablet 1 albuterol HFA (PROVENTIL HFA, VENTOLIN HFA) 90 mcg/actuation inhaler Inhale 2 puffs as instructed every 4 hours as needed for wheezing/shortness of breath. 1 each 5 estradiol (ESTRACE) 1 mg tablet Take 1 tablet by mouth once daily. 90 tablet 3 omega-3/dha/epa/fish oil (OMEGA-3 ORAL) Take 2,000 mg by mouth once daily. cholecalciferol (VITAMIN D3) 5,000 unit tab Take 5,000 Units by mouth once daily. (Patient not taking: Reported on 09/16/2024) loratadine (CLARITIN) 10 mg tablet Take 10 mg by mouth once daily as needed. (Patient not taking: Reported on 09/16/2024) No current facility-administered medications for this visit. ACTIVE PROBLEM LIST Anxiety Hypothyroidism Vasomotor Symptoms Due to Menopause Fatigue Syncope Palpitations PAST MEDICAL HISTORY Diagnosis Date Pain in left shoulder 12/16/2014 Rotator cuff syndrome of left shoulder 12/16/2014 PAST SURGICAL HISTORY Procedure Laterality Date APPENDECTOMY 1984 COLONOSCOPY 08/17/2018 repeat 10 years HYSTERECTOMY HX 09/2013 partial Social History Tobacco Use Smoking status: Former Types: Cigarettes Start date: 02/06/2004 Smokeless tobacco: Never Vaping Use Vaping status: Never Used Substance Use Topics Alcohol use: Not Currently Drug use: No Family History Problem Relation Age of Onset Hyperlipidemia Mother other (depression/anxiety) Mother Breast Cancer Mother 71 Common hereditary cancer panel negative Arthritis Father Kidney Disease Father other (alcoholism) Father Hypertension Brother other (heart disease) Brother other (alcoholism) Brother Breast Cancer Maternal Grandmother 70 - 79 also Great GMA Stroke Maternal Grandmother 80 Pancreatic Cancer Paternal Aunt 60 Breast Cancer Other 80 Review of Systems Constitutional: Negative for activity change, appetite change, chills, fatigue, fever and unexpected weight change. Respiratory: Negative for cough, shortness of breath and wheezing. Cardiovascular: Negative for chest pain, palpitations and leg swelling. Gastrointestinal: Positive for abdominal pain and constipation. Negative for diarrhea, nausea, rectal pain and vomiting. Lower pelvic/bladder Genitourinary: Negative for difficulty urinating, dyspareunia, dysuria, flank pain, frequency, genital sores, hematuria, pelvic pain, urgency, vaginal bleeding, vaginal discharge and vaginal pain. Neurological: Negative for dizziness, light-headedness and headaches. Hematological: Does not bruise/bleed easily. Psychiatric/Behavioral: Negative for confusion and dysphoric mood. The patient is not nervous/anxious. Objective BP 104/60 Pulse (!) 50 Resp 16 Ht 170.2 cm (5' 7) Wt 77.8 kg (171 lb 9.6 oz) SpO2 100% BMI 26.88 kg/m Physical Exam Vitals and nursing note reviewed. HENT: Head: Normocephalic and atraumatic. Cardiovascular: Rate and Rhythm: Normal rate and regular rhythm. Pulses: Normal pulses. Heart sounds: Normal heart sounds. Pulmonary: Effort: Pulmonary effort is normal. Breath sounds: Normal breath sounds. Skin: General: Skin is warm and dry. Neurological: Mental Status: She is alert and oriented to person, place, and time. Psychiatric: Mood and Affect: Mood normal. Behavior: Behavior normal. Thought Content: Thought content normal. Judgment: Judgment normal. 1. Elevated serum creatinine (R79.89) - Creatinine has been elevated for 3 years; GFR currently 65, previously dipped in May. - Urinalysis normal. - Advised to avoid long-term NSAID use due to potential nephrotoxicity. - Order renal and bladder ultrasound to further evaluate kidney function. 2. SOB (shortness of breath) (R06.02) - Lungs clear on exam. - History of smoking (quit in 2005) and recurrent COVID infections. - Order pulmonary function test to assess for possible asthma or COPD. Magdy Larios APRN.SUPPLY CHAIN ANALYST documented in this encounter [facility] 08-07-2024 Telephone encounter Note Prescription Refill Information The patient has been identified by name and date of : Yes Caregiver verified no other encounters exist for this prescription request: Yes Caregiver confirmed with patient/requestor that no other refills are due, in the near future, with this provider at this time: Yes The last office visit in the department: 09/25/2023 Does the patient have a future office visit with this provider/department: No. 12 month f/u Requested Prescriptions Pending Prescriptions Disp Refills levothyroxine (SYNTHROID) 50 mcg tablet [Pharmacy Med Name: LEVOTHYROXINE 50 MCG TABLET] 90 tablet 3 Sig: TAKE 1 TABLET BY MOUTH EVERY DAY Jes Epps MA August 07, 2024 1:27 PM [facility] 08-07-2024 Miscellaneous Notes Prescription Refill Information The patient has been identified by name and date of : Yes Caregiver verified no other encounters exist for this prescription request: Yes Caregiver confirmed with patient/requestor that no other refills are due, in the near future, with this provider at this time: Yes The last office visit in the department: 09/25/2023 Does the patient have a future office visit with this provider/department: No. 12 month f/u Requested Prescriptions Pending Prescriptions Disp Refills levothyroxine (SYNTHROID) 50 mcg tablet [Pharmacy Med Name: LEVOTHYROXINE 50 MCG TABLET] 90 tablet 3 Sig: TAKE 1 TABLET BY MOUTH EVERY DAY Jes Epps MA August 07, 2024 1:27 PM documented in this encounter [facility] 08-07-2024 Telephone encounter Note pharmacy requesting refills as follows: Last office visit: 06/10/24 Last refill: 05/12/24 Requested Prescriptions Pending Prescriptions Disp Refills citalopram hydrobromide (CELEXA) 10 mg tablet [Pharmacy Med Name: CITALOPRAM HBR 10 MG TABLET] 30 tablet 2 Sig: TAKE 1 TABLET BY MOUTH EVERY DAY Please review and advise. Franchesca Lombardo MA [facility] 08-07-2024 Miscellaneous Notes pharmacy requesting refills as follows: Last office visit: 06/10/24 Last refill: 05/12/24 Requested Prescriptions Pending Prescriptions Disp Refills citalopram hydrobromide (CELEXA) 10 mg tablet [Pharmacy Med Name: CITALOPRAM HBR 10 MG TABLET] 30 tablet 2 Sig: TAKE 1 TABLET BY MOUTH EVERY DAY Please review and advise. Franchesca Lombardo MA documented in this encounter [facility] 07-24-2024 Telephone encounter Note Left message informing patient, phone number to reach the office was left for any questions or concerns. Lindsay Longo MA [facility] 07-24-2024 Miscellaneous Notes Left message informing patient, phone number to reach the office was left for any questions or concerns. Lindsay Longo MA ----- Message from Magdy Larios APRN.SUPPLY CHAIN ANALYST sent at 07/23/2024 4:34 PM EDT ----- Mammogram normal. Follow up routine yearly screening IMPRESSION IMPRESSION: There is no mammographic evidence of malignancy in either breast. ----- Message from Magdy Larios APRN.SUPPLY CHAIN ANALYST sent at 06/10/2024 9:45 PM EDT ----- Urine looks okay Crp normal documented in this encounter [facility] 07-24-2024 Telephone encounter Note Left message informing patient, phone number to reach the office was left for any questions or concerns. Lindsay Longo MA [facility] 07-24-2024 Telephone encounter Note ----- Message from Magdy Larios APRN.SUPPLY CHAIN ANALYST sent at 07/23/2024 4:33 PM EDT ----- Creatinine stable near her baseline [facility] 07-24-2024 Miscellaneous Notes Left message informing patient, phone number to reach the office was left for any questions or concerns. Lindsay Longo MA ----- Message from Magdy Larios APRN.SUPPLY CHAIN ANALYST sent at 07/23/2024 4:33 PM EDT ----- Creatinine stable near her baseline documented in this encounter [facility] 07-24-2024 Telephone encounter Note ----- Message from Magdy Larios APRN.SUPPLY CHAIN ANALYST sent at 07/23/2024 4:34 PM EDT ----- Mammogram normal. Follow up routine yearly screening IMPRESSION IMPRESSION: There is no mammographic evidence of malignancy in either breast. [facility] 07-23-2024 History of Presen t illness Narrative Radiology Service Progress Note PATIENT NAME: Gayle Christian DATE OF SERVICE: July 23, 2024 TIME: 2:06 PM PATIENT IDENTITY VERIFICATION COMPLETED USING TWO (2) IDENTIFIERS: Name and Date of confirmed by patient verbally. FALL SCREENING: Has the patient had 2 falls in the last year or 1 fall with injury or currently using an Ambulatory Assistive Device (Walker, Cane, Wheelchair, Crutches, etc.)? No PATIENT GENDER DATA: Assigned female at . status: : No status: N/A PATIENT RELEVANT IMPLANT DATA REVIEWED: Not Applicable PATIENT PRESENTS WITH AN IMPLANTABLE OR ATTACHED POLICE OR PATROL PARK OFFICER: No RADIOLOGY DEPARTMENT: Mammography PERIPHERAL IV DATA: Not applicable SIGNED BY: RT Daily(R) July 23, 2024 2:06 PM documented in this encounter [facility] 07-23-2024 Note HNO ID: [id number] Author: CHICHO PITT RT(R) Service: Radiology Author Type: Technologist Type: Progress Notes Filed: 07/23/2024 14:07 Note Text: Radiology Service Progress Note PATIENT NAME: Gayle Christian DATE OF SERVICE: July 23, 2024 TIME: 2:06 PM PATIENT IDENTITY VERIFICATION COMPLETED USING TWO (2) IDENTIFIERS: Name and Date of confirmed by patient verbally. FALL SCREENING: Has the patient had 2 falls in the last year or 1 fall with injury or currently using an Ambulatory Assistive Device (Walker, Cane, Wheelchair, Crutches, etc.)? No PATIENT GENDER DATA: Assigned female at . status: : No status: N/A PATIENT RELEVANT IMPLANT DATA REVIEWED: Not Applicable PATIENT PRESENTS WITH AN IMPLANTABLE OR ATTACHED POLICE OR PATROL PARK OFFICER: No RADIOLOGY DEPARTMENT: Mammography PERIPHERAL IV DATA: Not applicable SIGNED BY: RT Daily(Joan) July 23, 2024 2:06 PM [facility] 07-14-2024 Instructions Bret Beckwith PA-C - 07/14/2024 8:39 AM EDT ASSESSMENT/PLAN: 1. Sinobronchitis - - DOXYCYCLINE MONOHYDRATE 100 MG CAPSULE - PREDNISONE 20 MG TABLET - Claritin - Flonase 2. Acute conjunctivitis of right eye, unspecified acute conjunctivitis type - POLYMYXIN B SULFATE 10,000 UNIT-TRIMETHOPRIM 1 MG/ML EYE DROPS Discussed OTC options: Encourage fluids, rest. Tylenol and Motrin for pain and fever Saline Nasil spray, Neti Pot, vaporizer, Vicks. Try Cepocol lozenges or Chloraseptic throat spray. Warm salt water gargles. Cough and deep breath- 10x/hr while awake. May use OTC Mucinex (guaifenesin) as directed for cough - See patient instructions for further recommendations. - Pt education along with discharge instructions given to pt - Pt agreeable with plan and verbalizes understanding. - Follow up with PCP if symptoms worsen or do not improve in the next 2-3 days. - Discussed Red Flag signs and when to go to ER. - If symptoms worsen, or new symptoms develop go to ER. - If you have worsening of breathing or breathing changes- go to ER. - If you have persistent fever unrelieved by Tylenol/Motrin- go to the ER. Bret Beckwith PA-C 8:11 AM 07/14/24 documented in this encounter [facility] 07-14-2024 Note HNO ID: [id number] Author: BRET EBCKWITH PA-C Service: ? Author Type: Physician Supervisor Sheet Manufacturing Type: Progress Notes Filed: 07/14/2024 09:32 Note Text: PATIENT NAME: Gayle Christian DATE OF : 1965 TODAYS' DATE: 07/14/2024 Recording using [employer] software for draft documentation of the visit was discussed with the patient/authorized sales representative adding machines; all questions welcomed and answered. Patient/authorized sales representative adding machines agreed to proceed Surgical mask and gloves worn for all in-person care. SUBJECTIVE: Patient presents with: Chest Congestion: A lot of coughing and congestion, has been 2 weeks HPI per the patient. History of Present Illness: Gayle is a 58-year-old female presenting with upper respiratory symptoms x 2 weeks. She has experienced increasing cough, BARKER, congestion, and drainage x 2 weeks. Chest feels tight. She notes left ear pain and matting of the right eye upon waking this morning. She describes a sensation of irritation in her lungs, stating they feel super agitated and reports a metallic taste when coughing. She also endorses a slight sensation of chest tightness. She has been taking Claritin for the past week but discontinued it a few days ago. She uses an albuterol inhaler in the mornings, but reports it has not provided relief and instead contributes to a burning sensation in her airways. She denies using Flonase or eye drops. She is not currently taking any medication for the cough, but drinks a lot of water for relief. She denies itchy or watery eyes and does not wear contact lenses. Denies fever, chills, sweats, body aches, or fatigue. Patient denies wheezing, shortness of breath, increased WOB, or chest pain. No n/v/d, or rash. Chart review: PMHx anxiety, depression, acquired hypothyroidism, arthralgias COVID exposure: none Influenza exposure: none RSV exposure: none Asthma: none Pneumonia: none Tobacco: none Covid Immunization Dates Completed or No Longer Recommended Covid-19 Vaccine Discontinued 04/21/2022 Frequency changed to Never by Briseyda Rebolledo MA (Patient Preference) 04/12/2021 Postponed until 04/12/2022 by Lindsay Longo MA (Declined at this time) Pain on scale of 0-10 with 0 being no pain and 10 being greatest pain: - Self-treatment:. Claritin, see HPI Barriers to learning: none. Reviewed meds, OTCs, herbals or supplements. Reviewed allergies, medications, social history, and past medical history. Allergies: Allergies: Penicillin G Rash Comment:itching ALLERGIES Penicillin G Past Medical History: PAST MEDICAL HISTORY Diagnosis Date Pain in left shoulder 12/16/2014 Rotator cuff syndrome of left shoulder 12/16/2014 Past Surgical History: PAST SURGICAL HISTORY Procedure Laterality Date APPENDECTOMY 1984 COLONOSCOPY 08/17/2018 repeat 10 years HYSTERECTOMY HX 09/2013 partial Family History: FAMILY HISTORY Problem Relation Age of Onset Hyperlipidemia Mother other (depression/anxiety) Mother Breast Cancer Mother 71 Common hereditary cancer panel negative Arthritis Father Kidney Disease Father other (alcoholism) Father Hypertension Brother other (heart disease) Brother other (alcoholism) Brother Breast Cancer Maternal Grandmother 70 - 79 also Great GMA Stroke Maternal Grandmother 80 Pancreatic Cancer Paternal Aunt 60 Breast Cancer Other 80 Tobacco History: Tobacco Use: for 20 years. Types: Cigarettes Medications: Current Outpatient Medications Medication Sig Dispense Refill albuterol HFA (PROVENTIL HFA, VENTOLIN HFA) 90 mcg/actuation inhaler Inhale 2 puffs as instructed every 4 hours as needed for wheezing/shortness of breath. 1 each 5 citalopram hydrobromide (CELEXA) 10 mg tablet TAKE 1 TABLET BY MOUTH EVERY DAY 90 tablet 0 estradiol (ESTRACE) 1 mg tablet Take 1 tablet by mouth once daily. 90 tablet 3 levothyroxine (SYNTHROID) 50 mcg tablet take 1 tablet by mouth every day 90 tablet 3 cholecalciferol (VITAMIN D3) 5,000 unit tab Take 5,000 Units by mouth once daily. loratadine (CLARITIN) 10 mg tablet Take 10 mg by mouth once daily as needed. doxycycline monohydrate (MONODOX) 100 mg capsule Take 1 capsule by mouth two times a day for 7 days. 14 capsule 0 predniSONE (DELTASONE) 20 mg tablet Take 1 tablet by mouth two times a day for 5 days. 10 tablet 0 polymyxin B-trimethoprim (POLYTRIM) 10,000 unit- 1 mg/mL ophthalmic solution Use 1 drop in both eyes three times a day for 5 days. 5 mL 0 omega-3/dha/epa/fish oil (OMEGA-3 ORAL) Take 2,000 mg by mouth once daily. (Patient not taking: Reported on 06/10/2024) No current facility-administered medications for this visit. Medications and allergies reviewed by this provider. Social history Social History Tobacco Use Smoking status: Former Types: Cigarettes Start date: 02/06/2004 Smokeless tobacco: Never Vaping Use Vaping status: Never Used Substance Use Topics Alcohol use: Not Cu (more content not included)... [facility] 07-14-2024 History of Presen t illness Narrative Images from the original note were not included. PATIENT NAME: Gayle Christian DATE OF : 1965 TODAYS' DATE: 07/14/2024 Recording using [employer] software for draft documentation of the visit was discussed with the patient/authorized sales representative adding machines; all questions welcomed and answered. Patient/authorized sales representative adding machines agreed to proceed Surgical mask and gloves worn for all in-person care. SUBJECTIVE: Patient presents with: Chest Congestion: A lot of coughing and congestion, has been 2 weeks HPI per the patient. History of Present Illness: Gayle is a 58-year-old female presenting with upper respiratory symptoms x 2 weeks. She has experienced increasing cough, BARKER, congestion, and drainage x 2 weeks. Chest feels tight. She notes left ear pain and matting of the right eye upon waking this morning. She describes a sensation of irritation in her lungs, stating they feel super agitated and reports a metallic taste when coughing. She also endorses a slight sensation of chest tightness. She has been taking Claritin for the past week but discontinued it a few days ago. She uses an albuterol inhaler in the mornings, but reports it has not provided relief and instead contributes to a burning sensation in her airways. She denies using Flonase or eye drops. She is not currently taking any medication for the cough, but drinks a lot of water for relief. She denies itchy or watery eyes and does not wear contact lenses. Denies fever, chills, sweats, body aches, or fatigue. Patient denies wheezing, shortness of breath, increased WOB, or chest pain. No n/v/d, or rash. Chart review: PMHx anxiety, depression, acquired hypothyroidism, arthralgias COVID exposure: none Influenza exposure: none RSV exposure: none Asthma: none Pneumonia: none Tobacco: none Covid Immunization Dates Completed or No Longer Recommended Covid-19 Vaccine Discontinued 04/21/2022 Frequency changed to Never by Briseyda Rebolledo MA (Patient Preference) 04/12/2021 Postponed until 04/12/2022 by Lindsay Longo MA (Declined at this time) Pain on scale of 0-10 with 0 being no pain and 10 being greatest pain: - Self-treatment:. ernst [place] Barriers to learning: none. Reviewed meds, OTCs, herbals or supplements. Reviewed allergies, medications, social history, and past medical history. Allergies: Allergies: Penicillin G Rash Comment:itching ALLERGIES Penicillin G Past Medical History: PAST MEDICAL HISTORY Diagnosis Date Pain in left shoulder 12/16/2014 Rotator cuff syndrome of left shoulder 12/16/2014 Past Surgical History: PAST SURGICAL HISTORY Procedure Laterality Date APPENDECTOMY 1984 COLONOSCOPY 08/17/2018 repeat 10 years HYSTERECTOMY HX 09/2013 partial Family History: FAMILY HISTORY Problem Relation Age of Onset Hyperlipidemia Mother other (depression/anxiety) Mother Breast Cancer Mother 71 Common hereditary cancer panel negative Arthritis Father Kidney Disease Father other (alcoholism) Father Hypertension Brother other (heart disease) Brother other (alcoholism) Brother Breast Cancer Maternal Grandmother 70 - 79 also Great GMA Stroke Maternal Grandmother 80 Pancreatic Cancer Paternal Aunt 60 Breast Cancer Other 80 Tobacco History: Tobacco Use: for 20 years. Types: Cigarettes Medications: Current Outpatient Medications Medication Sig Dispense Refill albuterol HFA (PROVENTIL HFA, VENTOLIN HFA) 90 mcg/actuation inhaler Inhale 2 puffs as instructed every 4 hours as needed for wheezing/shortness of breath. 1 each 5 citalopram hydrobromide (CELEXA) 10 mg tablet TAKE 1 TABLET BY MOUTH EVERY DAY 90 tablet 0 estradiol (ESTRACE) 1 mg tablet Take 1 tablet by mouth once daily. 90 tablet 3 levothyroxine (SYNTHROID) 50 mcg tablet take 1 tablet by mouth every day 90 tablet 3 cholecalciferol (VITAMIN D3) 5,000 unit tab Take 5,000 Units by mouth once daily. loratadine (CLARITIN) 10 mg tablet Take 10 mg by mouth once daily as needed. doxycycline monohydrate (MONODOX) 100 mg capsule Take 1 capsule by mouth two times a day for 7 days. 14 capsule 0 predniSONE (DELTASONE) 20 mg tablet Take 1 tablet by mouth two times a day for 5 days. 10 tablet 0 polymyxin B-trimethoprim (POLYTRIM) 10,000 unit- 1 mg/mL ophthalmic solution Use 1 drop in both eyes three times a day for 5 days. 5 mL 0 omega-3/dha/epa/fish oil (OMEGA-3 ORAL) Take 2,000 mg by mouth once daily. (Patient not taking: Reported on 06/10/2024) No current facility-administered medications for this visit. Medications and allergies reviewed by this provider. Social history Social History Tobacco Use Smoking status: Former Types: Cigarettes Start date: 02/06/2004 Smokeless tobacco: Never Vaping Use Vaping status: Never Used Substance Use Topics Alcohol use: Not Currently Drug use: No REVIEW OF SYSTEMS Review of Systems Constitutional: Negative. HENT: Positive for congestion, ear pain, postnasal drip, rhinorrhea and sinus pressure. Eyes: Negative. Respiratory: Positive for cough and chest tightness. Cardiovascular: Negative. Gastrointestinal: Negative. Endocrine: Negative. Genitourinary: Negative. Musculoskeletal: Negative. Skin: Negative. Allergic/Immunologic: Negative. Neurological: Positive for headaches. Hematological: Negative. Psychiatric/Behavioral: Negative. All other systems reviewed and are negative. Vitals: BP 117/81 Pulse 83 Temp 37 C (98.6 F) Resp 16 Wt 79.2 kg (174 lb 11.4 oz) SpO2 99% BMI 27.36 kg/m Physical Exam: Physical Exam Constitutional: General: She is not in acute distress. Appearance: Normal appearance. She is well-developed and normal weight. She is not ill-appearing, toxic-appearing or diaphoretic. HENT: Head: Normocephalic and atraumatic. No right periorbital erythema or left periorbital erythema. Salivary Glands: Right salivary gland is not diffusely enlarged or tender. Left salivary gland is not diffusely enlarged or tender. Right Ear: Tympanic membrane, ear canal and external ear normal. Left Ear: Ear canal and external ear normal. A middle ear effusion is present. Nose: Congestion and rhinorrhea present. Rhinorrhea is purulent. Right Sinus: Frontal sinus tenderness present. No maxillary sinus tenderness. Left Sinus: Frontal sinus tenderness present. No maxillary sinus tenderness. Mouth/Throat: Lips: [place]. No lesions. Mouth: Mucous membranes are moist. No oral lesions. Dentition: No gum lesions. Tongue: No lesions. Tongue does not deviate from midline. Palate: No mass and lesions. Pharynx: Oropharynx is clear. No pharyngeal swelling, oropharyngeal exudate, posterior oropharyngeal erythema or uvula swelling. Tonsils: No tonsillar exudate or tonsillar abscesses. Eyes: General: Lids are normal. No scleral icterus. Right eye: No discharge. Left eye: No discharge. Extraocular Movements: Extraocular movements intact. Conjunctiva/sclera: Conjunctivae normal. Pupils: Pupils are equal, round, and reactive to light. Pupils are equal. Cardiovascular: Rate and Rhythm: Normal rate and regular rhythm. Heart sounds: Normal heart sounds. Pulmonary: Effort: Pulmonary effort is normal. Breath sounds: Normal breath sounds and air entry. Musculoskeletal: Cervical back: Full passive range of motion without pain. No spinous process tenderness or muscular tenderness. Lymphadenopathy: Head: Right side of head: No submental, submandibular, tonsillar, preauricular or posterior auricular adenopathy. Left side of head: No submental, submandibular, tonsillar, preauricular or posterior auricular adenopathy. Cervical: No cervical adenopathy. Skin: General: Skin is warm. Capillary Refill: Capillary refill takes less than 2 seconds. Findings: No rash. Neurological: General: No focal deficit present. Mental Status: She is alert and oriented to person, place, and time. Cranial Nerves: No facial asymmetry. Psychiatric: Attention and Perception: Attention normal. Behavior: Behavior is cooperative. ASSESSMENT/PLAN: ASSESSMENT/PLAN: 1. Sinobronchitis - ICD9: 473.9, 490, ICD10: J32.9, J40 (primary diagnosis) - DOXYCYCLINE MONOHYDRATE 100 MG CAPSULE - PREDNISONE 20 MG TABLET - Claritin - Flonase 2. Acute conjunctivitis of right eye, unspecified acute conjunctivitis type - ICD9: 372.00, ICD10: H10.31 - POLYMYXIN B SULFATE 10,000 UNIT-TRIMETHOPRIM 1 MG/ML EYE DROPS Discussed OTC options: Encourage fluids, rest. Tylenol and Motrin for pain and fever Saline Nasil spray, Neti Pot, vaporizer, Vicks. Try Cepocol lozenges or Chloraseptic throat spray. Warm salt water gargles. Cough and deep breath- 10x/hr while awake. May use OTC Mucinex (guaifenesin) as directed for cough - See patient instructions for further recommendations. - Pt education along with discharge instructions given to pt - Pt agreeable with plan and verbalizes understanding. - Follow up with PCP if symptoms worsen or do not improve in the next 2-3 days. - Discussed Red Flag signs and when to go to ER. - If symptoms worsen, or new symptoms develop go to ER. - If you have worsening of breathing or breathing changes- go to ER. - If you have persistent fever unrelieved by Tylenol/Motrin- go to the ER. Bret Beckwith PA-C 8:11 AM 07/14/24 History and Record Review External record(s) reviewed: prior outpatient record. Findings from review of outpatient records: PMHx anxiety, depression, acquired hypothyroidism, arthralgias Differential Diagnoses - Sinobronchitis is more likely for the following reason(s): suggested by H&P - Acute conjunctivitis of right eye, unspecified acute conjunctivitis type is more likely for the following reason(s): suggested by H&P - Pneumonia is less likely for the following reason(s): H&P not suggestive - Otitis media is less likely for the following reason(s): H&P not suggestive Disposition The patient was discharged. OTC Medications were advised: Flonase OTC Decongestants May start Claritin or Zyrtec OTC as directed- helps to dry up runny nose and post nasal drip. Tylenol and Motrin for pain and fever Saline Nasil spray, Neti Pot, vaporizer, Vicks. Try Cepocol lozenges or Chloraseptic throat spray. Warm salt water gargles. Cough and deep breath- 10x/hr while awake. May use OTC Mucinex (guaifenesin) as directed for cough Medical Decision Making: Problems: Moderate: New problem with uncertain prognosis Data: Unique source(s) for external note(s) reviewed: 1 Risk: Moderate: Moderate risk from testing/treatment and Drug management Medical Decision Making Level: 4 - Moderate I spent a total of 20 minutes on the date of the service which included preparing to see the patient, [id number] patient care, completing clinical documentation, obtaining and/or reviewing separately obtained history, performing a medically appropriate examination, counseling and educating the patient/family/caregiver, and ordering medications, tests, or procedures. documented in this encounter [facility] 07-08-2024 Telephone encounter Note Left message informing patient, phone number to reach the office was left for any questions or concerns. Lindsay Longo MA [facility] 07-08-2024 Miscellaneous Notes Left message informing patient, phone number to reach the office was left for any questions or concerns. Lindsay Longo MA ----- Message from Lalitha Fisher LPN sent at 06/10/2024 4:20 PM EDT ----- Repeat renal panel in 4-6 weeks documented in this encounter [facility] 07-08-2024 Telephone encounter Note ----- Message from Lalitha Fisher LPN sent at 06/10/2024 4:20 PM EDT ----- Repeat renal panel in 4-6 weeks [facility] 06-17-2024 Telephone encounter Note ----- Message from Magdy Larios APRN.SUPPLY CHAIN ANALYST sent at 06/10/2024 9:45 PM EDT ----- Urine looks okay Crp normal [facility] 06-10-2024 History of Presen t illness Narrative This note was created using [employer]. Subjective Gayle Christian is a 58 year old female here today for WAE. PMH palpitations, anxiety, hypothyroidism. She reports having aching joints and states her knuckles in her hands are swollen states started in December. Decrease hand strength. Anxiety: she is taking celexa 10 mg daily. States she feels blah all the time. Denies feeling depressed. She admits to not having much emotions. States she has not feelings anymore. States she was able to fly without any medications. Hot flashes: She takes estrogen for this. States DR Means starting giving her this after her DIRECTOR [employer] retired. also was put on this for menopausal hot flashes. She went on estrogen to help control her hot flashes. Hypothyroidism: she is taking levothyroxine 50 mcg daily. She is seeing Dr Calhoun for management. She was last seen 08/22/22. He also prescribes her estradiol for sever menopausal symptoms that started in 2019. She reports she went off her estradiol from December until 3 wks ago. States reports in February and mar she would get sharp pains in her head, bad hot flashes(11 in one day), unable to sleep. States she went back on it 3 wks ago. Hx of syncopal episodes: she did see Dr Barillas regarding this. Her last syncopal episode was in 2021. He felt appeare vasovagal. Exclusively occurs when up to use bathroom. Preventative: she is due for mammogram in June and labs. She is not interested in flu or COVID vaccines. Last pap She sees DIRECTOR [employer] Dr Gusman in [place]. colonoscopy at age 52 follow up 10 yrs. Pt is very active. 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 Some elements of above documentation were copied from my progress note of 05/23/23 and have been reexamined and updated where appropriate. All elements reflect the current assessment and medical decision making today . ALLERGIES Allergen Reactions Penicillin G Rash itching Current Outpatient Medications Medication Sig Dispense Refill citalopram hydrobromide (CELEXA) 10 mg tablet TAKE 1 TABLET BY MOUTH EVERY DAY 90 tablet 0 estradiol (ESTRACE) 1 mg tablet Take 1 tablet by mouth once daily. 90 tablet 3 levothyroxine (SYNTHROID) 50 mcg tablet take 1 tablet by mouth every day 90 tablet 3 albuterol HFA (PROVENTIL HFA, VENTOLIN HFA) 90 mcg/actuation inhaler Inhale 2 Puffs as instructed every 4 hours as needed for wheezing/shortness of breath. 1 Each 0 omega-3/dha/epa/fish oil (OMEGA-3 ORAL) Take 2,000 mg by mouth once daily. cholecalciferol (VITAMIN D3) 5,000 unit tab Take 5,000 Units by mouth once daily. loratadine (CLARITIN) 10 mg tablet Take 10 mg by mouth once daily as needed. No current facility-administered medications for this visit. ACTIVE PROBLEM LIST Anxiety Hypothyroidism Vasomotor Symptoms Due to Menopause Fatigue Syncope Palpitations PAST MEDICAL HISTORY Diagnosis Date Pain in left shoulder 12/16/2014 Rotator cuff syndrome of left shoulder 12/16/2014 PAST SURGICAL HISTORY Procedure Laterality Date APPENDECTOMY 1984 COLONOSCOPY 08/17/2018 repeat 10 years HYSTERECTOMY HX 09/2013 partial Social History Tobacco Use Smoking status: Former Types: Cigarettes Start date: 02/06/2004 Smokeless tobacco: Never Vaping Use Vaping status: Never Used Substance Use Topics Alcohol use: Not Currently Drug use: No Family History Problem Relation Age of Onset Hyperlipidemia Mother other (depression/anxiety) Mother Breast Cancer Mother 71 Common hereditary cancer panel negative Arthritis Father Kidney Disease Father other (alcoholism) Father Hypertension Brother other (heart disease) Brother other (alcoholism) Brother Breast Cancer Maternal Grandmother 70 - 79 also Great GMA Stroke Maternal Grandmother 80 Pancreatic Cancer Paternal Aunt 60 Breast Cancer Other 80 . Review of Systems Constitutional: Positive for fatigue. Negative for activity change, appetite change, chills, diaphoresis, fever and unexpected weight change. HENT: Negative for ear pain, sinus pain, sore throat and trouble swallowing. Eyes: Negative for photophobia and visual disturbance. Respiratory: Negative for cough, chest tightness, shortness of breath and wheezing. Cardiovascular: Negative for chest pain, palpitations and leg swelling. Gastrointestinal: Negative for abdominal pain, blood in stool, constipation, diarrhea, nausea and vomiting. Endocrine: Negative. Genitourinary: Negative for difficulty urinating, dysuria and hematuria. Musculoskeletal: Positive for arthralgias. Negative for back pain, myalgias and neck pain. Chronic bilateral hand, hip, shoulder and wrist pain. Skin: Negative. Neurological: Positive for headaches. Negative for dizziness and weakness. Change in weather will cause her to have headaches. Hematological: Negative. Psychiatric/Behavioral: Positive for dysphoric mood. Negative for sleep disturbance. The patient is nervous/anxious. She reports she feels better when she is in sunshine less depressed. Objective 06/10/24 1453 BP: 118/70 Pulse: (!) 59 Resp: 18 SpO2: 100% Weight: 79.7 kg (175 lb 12.8 oz) Height: 170.2 cm (5' 7) Physical Exam Vitals and nursing note reviewed. Constitutional: General: She is not in acute distress. Appearance: Normal appearance. She is not ill-appearing or diaphoretic. HENT: Head: Normocephalic and atraumatic. Right Ear: Tympanic membrane, ear canal and external ear normal. Left Ear: Tympanic membrane, ear canal and external ear normal. Nose: Nose normal. No congestion or rhinorrhea. Mouth/Throat: Pharynx: No oropharyngeal exudate. Eyes: General: Lids are normal. No scleral icterus. Right eye: No discharge. Left eye: No discharge. Conjunctiva/sclera: Conjunctivae normal. Pupils: Pupils are equal, round, and reactive to light. Neck: Vascular: Normal carotid pulses. No carotid bruit. Cardiovascular: Rate and Rhythm: Normal rate and regular rhythm. Pulses: Normal pulses. Carotid pulses are 2+ on the right side and 2+ on the left side. Radial pulses are 2+ on the right side and 2+ on the left side. Heart sounds: Normal heart sounds, S1 normal and S2 normal. No murmur heard. No friction rub. No gallop. Pulmonary: Effort: Pulmonary effort is normal. No accessory muscle usage or respiratory distress. Breath sounds: Normal breath sounds. No decreased air movement. No decreased breath sounds, wheezing, rhonchi or rales. Chest: Chest wall: No tenderness. Abdominal: General: Bowel sounds are normal. There is no distension. Palpations: Abdomen is soft. Tenderness: There is no abdominal tenderness. Musculoskeletal: General: No tenderness. Normal range of motion. Right shoulder: Normal. Left shoulder: Normal. Right wrist: Normal. Left wrist: Normal. Right hand: Normal. Left hand: Normal. Cervical back: Normal range of motion and neck supple. Right lower leg: No edema. Left lower leg: No edema. Lymphadenopathy: Cervical: No cervical adenopathy. Skin: General: Skin is warm and dry. Coloration: Skin is not pale. Findings: No erythema or rash. Nails: There is no clubbing. Neurological: General: No focal deficit present. Mental Status: She is alert and oriented to person, place, and time. Motor: No abnormal muscle tone. Coordination: Coordination normal. Deep Tendon Reflexes: Reflexes are normal and symmetric. Psychiatric: Attention and Perception: Attention and perception normal. Mood and Affect: Mood normal. Speech: Speech normal. Behavior: Behavior normal. Behavior is cooperative. Thought Content: Thought content normal. Cognition and Memory: Cognition and memory normal. Judgment: Judgment normal. Latest Ref [facility] 06/08/2024 Protein, Total 6.3 - 8.0 g/dL 6.6 Albumin 3.9 - 4.9 g/dL 4.1 Calcium 8.5 - 10.2 mg/dL 9.6 Bilirubin, Total 0.2 - 1.3 mg/dL 0.8 Alkaline Phosphatase 34 - 123 U/L 106 AST 13 - 35 U/L 20 ALT 7 - 38 U/L 20 Glucose 74 - 99 mg/dL 100 (H) BUN 7 - 21 mg/dL 17 Creatinine 0.58 - 0.96 mg/dL 1.10 (H) Sodium 136 - 144 mmol/L 141 Potassium 3.7 - 5.1 mmol/L 4.4 Chloride 98 - 107 mmol/L 104 CO2 22 - 30 mmol/L 28 Anion Gap 8 - 15 mmol/L 9 eGFR >=60 mL/min/1.73m 59 (L) WBC 3.70 - 11.00 k/uL 4.62 RBC 3.90 - 5.20 m/uL 5.18 Hemoglobin 11.5 - 15.5 g/dL 15.5 Hematocrit 36.0 - 46.0 % 47.8 (H) MCV 80.0 - 100.0 fL 92.3 MCH 26.0 - 34.0 pg 29.9 MCHC 30.5 - 36.0 g/dL 32.4 RDW-CV 11.5 - 15.0 % 12.7 Platelet Count 150 - 400 k/uL 241 MPV 9.0 - 12.7 fL 10.0 Cholesterol, Total <200 mg/dL 258 (H) Triglyceride <150 mg/dL 101 HDL Cholesterol >39 mg/dL 80 Non HDL Cholesterol <130 mg/dL 178 (H) Fasting Time hrs 12 VLDL Cholesterol <30 mg/dL 20 TC:HDL Ratio <5.10 3.23 LDL Cholesterol <100 mg/dL 158 (H) LDL:HDL Ratio <2.54 1.98 Vitamin D 25 Hydroxy >=30.0 ng/mL 46.9 TSH 0.270 - 4.200 mIU/L 2.300 Free T4 0.9 - 1.7 ng/dL 1.1 Legend: (H) High (L) Low ASSESSMENT/PLAN: 1. Wellness examination - ICD9: V70.0, ICD10: Z00.00 (primary diagnosis) - Counseled on healthy diet and regular exercise - Discussed need and benefit for weight loss. BMI 27.53 kg/(m^2) - Breast cancer screening - ordered mammogram - Counseled on alcohol intake and health risks - Follow up for annual exam in one year 2. Anxiety - ICD9: 300.00, ICD10: F41.9 - Chronic controlled on celexa 3. Depression, unspecified depression type - ICD9: 311, ICD10: F32.A - Chronic stable - continue celexa, consider adding Wellbutrin in the fall for possible seasonal affective disorder. 4. Acquired hypothyroidism - ICD9: 244.9, ICD10: E03.9 - Instructed patient on importance of taking on an empty stomach either first thing in the morning or at bedtime. - continue current dose of Synthroid 5. Arthralgia of both hands - ICD9: 719.44, ICD10: M25.541, M25.542 - chronic, exam unremarkable. Will check inflammation markers. - SEDIMENTATION RATE, WESTERGREN - C-REACTIVE PROTEIN - RENETTA BY IFA SCREEN - RHEUMATOID FACTOR 6. Wheezing - ICD9: 786.07, ICD10: R06.2 - requesting refill of her albuterol for occasional use during wet humid weather. States she will wheeze and have tightness in chest. - ALBUTEROL SULFATE HFA 90 MCG/ACTUATION AEROSOL INHALER 7. Elevated serum creatinine - ICD9: 790.99, ICD10: R79.89 - recheck creatinine in 4-6 wks. If no improvement or worsening will order imagining. - no NSAIDS - URINALYSIS (WITH MICROSCOPIC) WITH CULTURE IF INDICATED 8. Encounter for screening mammogram for malignant neoplasm of breast - ICD9: V76.12, ICD10: Z12.31 - GREGORIO SCREENING W AILEEN 9. Screening for blood or protein in urine - ICD9: V82.9, ICD10: Z13.89 - URINALYSIS (WITH MICROSCOPIC) WITH CULTURE IF INDICATED Magdy Larios APRN.SUPPLY CHAIN ANALYST documented in this encounter [facility] 06-10-2024 Note HNO ID: [id number] Author: MAGDY LARIOS APRN.SUPPLY CHAIN ANALYST Service: ? Author Type: Nurse Practitioner Type: Progress Notes Filed: 06/10/2024 16:27 Note Text: This note was created using Docu[employer]. Subjective Gayle Christian is a 58 year old female here today for WAE. PMH palpitations, anxiety, hypothyroidism. She reports having aching joints and states her knuckles in her hands are swollen states started in December. Decrease hand strength. Anxiety: she is taking celexa 10 mg daily. States she feels blah all the time. Denies feeling depressed. She admits to not having much emotions. States she has not feelings anymore. States she was able to fly without any medications. Hot flashes: She takes estrogen for this. States DR Means starting giving her this after her [employer] retired. also was put on this for menopausal hot flashes. She went on estrogen to help control her hot flashes. Hypothyroidism: she is taking levothyroxine 50 mcg daily. She is seeing Dr Calhoun for management. She was last seen 08/22/22. He also prescribes her estradiol for sever menopausal symptoms that started in 2019. She reports she went off her estradiol from December until 3 wks ago. States reports in February and mar she would get sharp pains in her head, bad hot flashes(11 in one day), unable to sleep. States she went back on it 3 wks ago. Hx of syncopal episodes: she did see Dr Barillas regarding this. Her last syncopal episode was in 2021. He felt appeare vasovagal. Exclusively occurs when up to use bathroom. Preventative: she is due for mammogram in June and labs. She is not interested in flu or COVID vaccines. Last pap She sees DIRECT[employer] Dr Gusman in [place]. colonoscopy at age 52 follow up 10 yrs. Pt is very active. 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 Some elements of above documentation were copied from my progress note of 05/23/23 and have been reexamined and updated where appropriate. All elements reflect the current assessment and medical decision making today . ALLERGIES Allergen Reactions Penicillin G Rash itching Current Outpatient Medications Medication Sig Dispense Refill citalopram hydrobromide (CELEXA) 10 mg tablet TAKE 1 TABLET BY MOUTH EVERY DAY 90 tablet 0 estradiol (ESTRACE) 1 mg tablet Take 1 tablet by mouth once daily. 90 tablet 3 levothyroxine (SYNTHROID) 50 mcg tablet take 1 tablet by mouth every day 90 tablet 3 albuterol HFA (PROVENTIL HFA, VENTOLIN HFA) 90 mcg/actuation inhaler Inhale 2 Puffs as instructed every 4 hours as needed for wheezing/shortness of breath. 1 Each 0 omega-3/dha/epa/fish oil (OMEGA-3 ORAL) Take 2,000 mg by mouth once daily. cholecalciferol (VITAMIN D3) 5,000 unit tab Take 5,000 Units by mouth once daily. loratadine (CLARITIN) 10 mg tablet Take 10 mg by mouth once daily as needed. No current facility-administered medications for this visit. ACTIVE PROBLEM LIST Anxiety Hypothyroidism Vasomotor Symptoms Due to Menopause Fatigue Syncope Palpitations PAST MEDICAL HISTORY Diagnosis Date Pain in left shoulder 12/16/2014 Rotator cuff syndrome of left shoulder 12/16/2014 PAST SURGICAL HISTORY Procedure Laterality Date APPENDECTOMY 1984 COLONOSCOPY 08/17/2018 repeat 10 years HYSTERECTOMY HX 09/2013 partial Social History Tobacco Use Smoking status: Former Types: Cigarettes Start date: 02/06/2004 Smokeless tobacco: Never Vaping Use Vaping status: Never Used Substance Use Topics Alcohol use: Not Currently Drug use: No Family History Problem Relation Age of Onset Hyperlipidemia Mother other (depression/anxiety) Mother Breast Cancer Mother 71 Common hereditary cancer panel negative Arthritis Father Kidney Disease Father other (alcoholism) Father Hypertension Brother other (heart disease) Brother other (alcoholism) Brother Breast Cancer Maternal Grandmother 70 - 79 also Great GMA Stroke Maternal Grandmother 80 Pancreatic Cancer Paternal Aunt 60 Breast Cancer Other 80 . Review of Systems Constitutional: Positive for fatigue. Negative for activity change, appetite change, chills, diaphoresis, fever and unexpected weight change. HENT: Negative for ear pain, sinus pain, sore throat and trouble swallowing. Eyes: Negative for photophobia and visual disturbance. Respiratory: Negative for cough, chest tightness, shortness of breath and wheezing. Cardiovascular: Negative for chest pain, palpitations and leg swelling. Gastrointestinal: Negative for abdominal pain, blood in stool, constipation, diarrhea, nausea and vomiting. Endocrine: Negative. Genitourinary: Negative for difficulty urinating, dysuria and hematuria. Musculoskeletal: Positive for arthralgias. Negative for back pain, myalgias and neck pain. Chronic bilateral hand, hip, shoulder and wrist pain. Skin: Negative. Neurological: Positive for headaches. Negative for dizziness and weakness (more content not included)... [facility] 05-10-2024 Telephone encounter Note pharmacy electronically requesting refills as follows: Last seen 05/23/23 . Last refill 05/23/23 . Requested Prescriptions Pending Prescriptions Disp Refills citalopram hydrobromide (CELEXA) 10 mg tablet [Pharmacy Med Name: CITALOPRAM HBR 10 MG TABLET] 90 tablet 3 Sig: TAKE 1 TABLET BY MOUTH EVERY DAY Please review and advise. Briseyda Rebolledo MA [facility] 05-10-2024 Miscellaneous Notes pharmacy electronically requesting refills as follows: Last seen 05/23/23 . Last refill 05/23/23 . Requested Prescriptions Pending Prescriptions Disp Refills citalopram hydrobromide (CELEXA) 10 mg tablet [Pharmacy Med Name: CITALOPRAM HBR 10 MG TABLET] 90 tablet 3 Sig: TAKE 1 TABLET BY MOUTH EVERY DAY Please review and advise. Briseyda Rebolledo MA documented in this encounter [facility] 02-28-2024 Note HNO ID: [id number] Author: DEBORA CALVILLO MS Service: ? Author Type: Genetic Counselor Type: Progress Notes Filed: 02/28/2024 15:51 Note Text: [facility] Department of Medical Genetics Consultation Note Genetic Counselor: Debora Calvillo MS, [facility] Patient: Gayle Christian Patient Name and confirmed at initiation of visit. HIGH LEVEL SUMMARY: The patient's family history is potentially suggestive of a hereditary pancreatic cancer syndrome. The patient provided informed consent for Multi-Cancer panel through [facility]. Results are expected in 2-3 weeks from the time of sample collection. Patient plans to have blood drawn on site today. IDENTIFICATION AND CHIEF COMPLAINT: Dr. Magdy Larios requested a consultation for genetic counseling and risk assessment for Gayle Christian, a 58 year old female, for discussion of her family history of breast cancer. She presents to clinic today to discuss the possibility of a genetic predisposition to cancer, and to further clarify her risks, as well as her family members' risks for cancer. HISTORY OF PRESENT ILLNESS: Gayle Christian is a 58 year old female with no personal history of cancer. She has a family history of breast cancer in her mother and maternal grandmother. Her mother had negative panel testing in 2019. PAST MEDICAL HISTORY Diagnosis Date Pain in left shoulder 12/16/2014 Rotator cuff syndrome of left shoulder 12/16/2014 PAST SURGICAL HISTORY Procedure Laterality Date APPENDECTOMY 1984 COLONOSCOPY 08/17/2018 repeat 10 years HYSTERECTOMY HX 09/2013 partial CANCER SURVEILLANCE HISTORY: Mammograms: Yes / annual tomosynthesis Breast MRI's: No Breast Biopsies: No Colonoscopy: Yes EGD: Yes / hiatal hernia GI Polyps: No Prostate Cancer surveillance: N/A Dermatology: Yes / annual REPRODUCTIVE HISTORY AND PERSONAL RISK ASSESSMENT FACTORS: Weight: Last 1 Encounter Wt Readings: Date: Wt: 01/31/2024 74.4 kg (164 lb) Height: Last 1 Encounter Ht Readings: Date: Ht: 01/31/2024 170.2 cm (5' 7) Uterus Intact: No Ovaries Intact: one intact SOCIAL HISTORY: Social History Tobacco Use Smoking status: Former Types: Cigarettes Start date: 02/06/2004 Smokeless tobacco: Never Vaping Use Vaping status: Never Used Substance Use Topics Alcohol use: Not Currently Drug use: No FAMILY HISTORY: We obtained a detailed, 4-generation family history. Significant diagnoses are listed below: FAMILY HISTORY Problem Relation Age of Onset Hyperlipidemia Mother other (depression/anxiety) Mother Breast Cancer Mother 71 Common hereditary cancer panel negative Arthritis Father Kidney Disease Father other (alcoholism) Father Hypertension Brother other (heart disease) Brother other (alcoholism) Brother Breast Cancer Maternal Grandmother 70 - 79 also Great GMA Stroke Maternal Grandmother 80 Pancreatic Cancer Paternal Aunt 60 Breast Cancer Other 80 A copy of the patient's pedigree will be available under the scanned documents tab following today's visit. GENETIC COUNSELING RISK ASSESSMENT, DISCUSSION, AND SUGGESTED FOLLOW UP: We reviewed the natural history and genetic etiology of sporadic, familial and hereditary cancer syndromes. The patient's family history is potentially suggestive of: a hereditary pancreatic cancer syndrome We reviewed since the patient's mother had a negative panel test, there is not a concern for the patient to have inherited a hereditary cancer syndrome from her maternal side of the family. The patient's paternal aunt had a history of pancreatic cancer. We discussed that the best person to begin with genetic testing is a family member with a history of cancer. The patient's paternal aunt who was diagnosed with pancreatic cancer would be the most appropriate relative for genetic testing. However, this relative is unavailable for testing. Therefore we discussed the limitations of interpreting tests results for an unaffected individual. While the patient does not meet NCCN genetic testing criteria. Although the patient's family history does not meet genetic testing criteria, we discussed the option of pursuing genetic testing for an out of pocket fee. We discussed that identification of a hereditary cancer syndrome may help her care providers tailor her medical management. If a mutation is detected, the National Comprehensive Cancer Network and/or expert opinion recommendations could include increased cancer surveillance and prophylactic surgery options. If a mutation is detected, the patient will be referred back to the referring provider and to any additional appropriate care providers to discuss the relevant options. Inheritance of hereditary cancer syndromes was discussed with the patient. If a mutation is not found in the patient, this will decrease the likelihood of a hereditary cancer syndrome for the patient, valdez (more content not included)... [facility] 02-28-2024 History of Presen t illness Narrative Images from the original note were not included. [facility] Department of Medical Genetics Consultation Note Genetic Counselor: Debora Calvillo MS, CGC Patient: Gayle Christian Patient Name and confirmed at initiation of visit. HIGH LEVEL SUMMARY: The patient's family history is potentially suggestive of a hereditary pancreatic cancer syndrome. The patient provided informed consent for Multi-Cancer panel through [facility]. Results are expected in 2-3 weeks from the time of sample collection. Patient plans to have blood drawn on site today. IDENTIFICATION AND CHIEF COMPLAINT: Dr. Magdy Larios requested a consultation for genetic counseling and risk assessment for Gayle Christian, a 58 year old female, for discussion of her family history of breast cancer. She presents to clinic today to discuss the possibility of a genetic predisposition to cancer, and to further clarify her risks, as well as her family members' risks for cancer. HISTORY OF PRESENT ILLNESS: Gayle Christian is a 58 year old female with no personal history of cancer. She has a family history of breast cancer in her mother and maternal grandmother. Her mother had negative panel testing in 2019. PAST MEDICAL HISTORY Diagnosis Date Pain in left shoulder 12/16/2014 Rotator cuff syndrome of left shoulder 12/16/2014 PAST SURGICAL HISTORY Procedure Laterality Date APPENDECTOMY 1984 COLONOSCOPY 08/17/2018 repeat 10 years HYSTERECTOMY HX 09/2013 partial CANCER SURVEILLANCE HISTORY: Mammograms: Yes / annual tomosynthesis Breast MRI's: No Breast Biopsies: No Colonoscopy: Yes EGD: Yes / hiatal hernia GI Polyps: No Prostate Cancer surveillance: N/A Dermatology: Yes / annual REPRODUCTIVE HISTORY AND PERSONAL RISK ASSESSMENT FACTORS: Weight: Last 1 Encounter Wt Readings: Date: Wt: 01/31/2024 74.4 kg (164 lb) Height: Last 1 Encounter Ht Readings: Date: Ht: 01/31/2024 170.2 cm (5' 7) Uterus Intact: No Ovaries Intact: one intact SOCIAL HISTORY: Social History Tobacco Use Smoking status: Former Types: Cigarettes Start date: 02/06/2004 Smokeless tobacco: Never Vaping Use Vaping status: Never Used Substance Use Topics Alcohol use: Not Currently Drug use: No FAMILY HISTORY: We obtained a detailed, 4-generation family history. Significant diagnoses are listed below: FAMILY HISTORY Problem Relation Age of Onset Hyperlipidemia Mother other (depression/anxiety) Mother Breast Cancer Mother 71 Common hereditary cancer panel negative Arthritis Father Kidney Disease Father other (alcoholism) Father Hypertension Brother other (heart disease) Brother other (alcoholism) Brother Breast Cancer Maternal Grandmother 70 - 79 also Great GMA Stroke Maternal Grandmother 80 Pancreatic Cancer Paternal Aunt 60 Breast Cancer Other 80 A copy of the patient's pedigree will be available under the scanned documents tab following today's visit. GENETIC COUNSELING RISK ASSESSMENT, DISCUSSION, AND SUGGESTED FOLLOW UP: We reviewed the natural history and genetic etiology of sporadic, familial and hereditary cancer syndromes. The patient's family history is potentially suggestive of: a hereditary pancreatic cancer syndrome We reviewed since the patient's mother had a negative panel test, there is not a concern for the patient to have inherited a hereditary cancer syndrome from her maternal side of the family. The patient's paternal aunt had a history of pancreatic cancer. We discussed that the best person to begin with genetic testing is a family member with a history of cancer. The patient's paternal aunt who was diagnosed with pancreatic cancer would be the most appropriate relative for genetic testing. However, this relative is unavailable for testing. Therefore we discussed the limitations of interpreting tests results for an unaffected individual. While the patient does not meet NCCN genetic testing criteria. Although the patient's family history does not meet genetic testing criteria, we discussed the option of pursuing genetic testing for an out of pocket fee. We discussed that identification of a hereditary cancer syndrome may help her care providers tailor her medical management. If a mutation is detected, the National Comprehensive Cancer Network and/or expert opinion recommendations could include increased cancer surveillance and prophylactic surgery options. If a mutation is detected, the patient will be referred back to the referring provider and to any additional appropriate care providers to discuss the relevant options. Inheritance of hereditary cancer syndromes was discussed with the patient. If a mutation is not found in the patient, this will decrease the likelihood of a hereditary cancer syndrome for the patient, however it cannot rule it out as the explanation for the family history of cancer. Cancer surveillance options would be discussed for the patient according to the appropriate standard National Comprehensive Cancer Network and [place] Cancer Society guidelines, with consideration of their personal and family history risk factors. In this case, the patient will be referred back to their care providers for discussions of management. After considering the risks, benefits, and limitations, the patient chose to pursue and provided informed consent for the following testing: Multi-Cancer panel through [facility]. The Multi-Cancer Panel includes AIP, ALK, APC, SAMANTHA, AXIN2, BAP1, BARD1, BLM, BMPR1A, BRCA1, BRCA2, BRIP1, CDC73, CDH1, CDK4, CDKN1B, CDKN2A, CHEK2, CTNNA1, DICER1, EGFR, EPCAM, FH, FLCN, GREM1, HOXB13, KIT, LZTR1, MAX, MBD4, MEN1, MET, MITF, MLH1, MSH2, MSH3, MSH6, MUTYH, NF1, NF2, NTHL1, PALB2, PDGFRA, PMS2, POLD1, POLE, POT1, VBIHW8Z, PTCH1, PTEN, RAD51C, RAD51D, RB1, RET, SDHA, SDHAF2, SDHB, SDHC, SDHD, SMAD4, SMARCA4, SMARCB1, SMARCE1, STK11, SUFU, PFGX607, TP53, TSC1, TSC2, and VHL The Multi-Cancer panel looks at genes associated with cancers of the breast, gynecologic tract (ovarian, uterine/endometrial), gastrointestinal system (colorectal, gastric, pancreatic), endocrine glands (thyroid, parathyroid, pituitary, adrenal glands), genitourinary tract (renal/urinary tract, prostate), skin (melanoma, basal cell carcinoma), and brain/nervous system. We discussed that an NGS panel can rarely result in an unexpected finding which may or may not be related to the presenting phenotype. We discussed that [employer] may call the patient regarding billing. The patient should watch for this communication and respond promptly. The patient should contact [employer] directly with any billing questions (ph. [phone] or [email or web address]). Per the patient's request, we will contact her by [email or web address] or telephone to review these results. A follow up genetic counseling visit will be scheduled if requested. The patient was seen for a total of 30 minutes, greater than 50% of which was spent [id number] counseling. This plan is being carried out under the oversight of Dr. Angela Licea. This note will also be sent to the referring provider via the electronic medical record. Debora Calvillo MS, [facility] Licensed, Certified Genetic Counselor [facility] CC: Dr. Magdy Galindo documented in this encounter [facility] 01-31-2024 Instructions Nicola Barillas MD - 01/31/2024 11:30 AM EST Heart Disease in Women Is heart disease a problem for women? Heart disease is the leading cause of of [place] women. More women from heart disease than from cancer. A heart attack can happen when there are problems with the blood vessels that bring blood to the heart (the coronary arteries). For example, fatty deposits called plaque may build up in the coronary arteries and make them narrower. The narrowing decreases blood flow to the heart. Plaque also increases the chance that blood clots may form and block a blood vessel, which can cause a heart attack or stroke. In the first year after a heart attack, women have an increased risk of . In the first 6 years after a heart attack, they also have a higher risk of a second heart attack. Women are at high risk often because they are older at the time of the heart attack and have other medical problems. Not everyone has the same symptoms. The most common symptoms of a heart attack include: Chest pain or pressure, squeezing, or fullness in the center of your chest that lasts more than a few minutes, or goes away and comes back (may feel like indigestion or heartburn) Pain or discomfort in one or both arms or shoulders, or in your back, neck, jaw, or stomach Trouble breathing Breaking out in a cold sweat for no known reason Along with these symptoms, you may also feel very tired, faint, or be sick to your stomach. Sometimes you can be having a heart attack and not know it. Many women have chest pain or pressure, but sometimes symptoms in women are different from men s symptoms. Or women may have additional symptoms, such as: Unexplained anxiety and nervousness Swelling of the ankles or lower legs Because they may not feel the typical pain in the left side of their chest, many women may ignore the symptoms of a heart attack. Call 911 for emergency help right away if you have these symptoms. Do not drive yourself to the hospital. Immediate emergency care improves your chances of survival and may help avoid damage to your heart. How can women lower their risk for heart disease? If you have high blood pressure, carefully follow your healthcare provider's instructions for keeping it under control. If you are a smoker, stop smoking. Try to keep a healthy weight. If you are overweight, talk to your provider about ways to lose weight. Eat a healthy diet that includes: ?Avoiding salty foods and not adding salt to food ?Increasing fiber, fruits, and vegetables ?Avoiding foods high in fat, cholesterol, and sugar Exercise according to your healthcare provider's instructions. Get enough rest and learn to use relaxation methods to help reduce stress. Treat and control medical conditions such as diabetes and high cholesterol. If you are taking hormone therapy, you and your healthcare provider should discuss the risks and benefits. Hormone therapy may increase the risk for heart disease or stroke. Talk with your provider about taking aspirin. Low-dose aspirin therapy reduces the risk of stroke for women. But it helps to lower a woman s risk of heart attack and other heart problems only if she is 65 or older. Make sure that your provider knows about any other medicines you are taking. If you decide you need to make changes in the way you live, you probably won't be able to turn your life around all at once. Try to develop healthy habits that incorporate your lifestyle goals. If you do, you will greatly decrease your chances for developing heart disease. You can get more information from: [employer] [facility] Dvahqhndvfo0-072-QCV-USA-1 ( )www.heart.org Developed by [employer]. Published by [employer]. Copyright 2014 [employer] and/or one of its subsidiaries. All rights reserved. documented in this encounter [facility] 01-31-2024 Note HNO ID: [id number] Author: NICOLA BARILLAS MD Service: ? Author Type: Physician Type: Progress Notes Filed: 01/31/2024 11:37 Note Text: PRIMARY CARE PHYSICIAN: Magdy Larios [address] [place] [id number] REFERRING PHYSICIAN: SELF CHIEF COMPLAINT: Patient presents with: CARD Follow Up 6 Month: Follow up to syncope HPI: Mrs Christian was kindly referred to me by PRATIK Patel. Her parents, Jesu, and Paty Brown are my patients as well. From a cardiac standpoint, she has a history of hypothyroidism. She is seeing me today for an issue with syncopal spells. Her last true syncopal spell was in 02/10. She woke up in the middle of the night to take her dog to the bathroom. She tried to open the door knob, and remembers waking up on the floor. She had another similar spell when she was up in the night to use the bathroom. At other times, she has felt dizzy when she stands up abruptly. Her echo from 03/15 revealed normal LV size, systolic function . LVEF 65 %. No significant valvular abnormalities were noted. She had normal RV size, systolic function. Her patch monitor results dated 03/02/2023 revealed sinus rhythm with heart rates between 47 to 166 bpm. She had very sporadic supraventricular ectopics with a burden of 0.02%. The longest event comprised of 8 beats of nonsustained supraventricular tachycardia, and the fastest event had a heart rate of 163 bpm. The PVC burden was also very low at 0.03%. Patient recorded events during the monitoring period. I offered use of prn beta lorrie therapy, but she did not want to start it yet. She denies shortness of breath, lightheadedness, dizziness or loss of consciousness. She did admit to some numbness in her left arm, and underwent a neurologic work up. Apparently the workup was negative. She does admit to high caffeine consumption. She does not drink any alcohol though. She is not aware of a family history of sudden cardiac . Her LDL was not at goal based on her lipid panel from 06/13. LDL Cholesterol Date Value Ref Range Status 05/23/2023 120 (H) <100 mg/dL Final Comment: <100 mg/dL, Optimal 100-129 mg/dL, Near optimal/above optimal 130-159 mg/dL, Borderline high 160-189 mg/dL, High >189 mg/dL, Very high Secondary prevention optimal LDL Cholesterol levels are recommended to be < 70 mg/dL PAST MEDICAL HISTORY Diagnosis Date Pain in left shoulder 12/16/2014 Rotator cuff syndrome of left shoulder 12/16/2014 PAST SURGICAL HISTORY Procedure Laterality Date APPENDECTOMY 1984 COLONOSCOPY 08/17/2018 repeat 10 years HYSTERECTOMY HX 09/2013 partial SOCIAL HISTORY Social History Tobacco Use Smoking status: Former Types: Cigarettes Start date: 02/06/2004 Smokeless tobacco: Never Vaping Use Vaping status: Never Used Substance Use Topics Alcohol use: Not Currently Drug use: No FAMILY HISTORY Problem Relation Age of Onset Arthritis Father Kidney Disease Father other (alcoholism) Father Hyperlipidemia Mother other (depression/anxiety) Mother other (substance abuse) Sister half sister Hypertension Brother other (heart disease) Brother other (alcoholism) Brother Breast Cancer Maternal Grandmother also Great GMA Stroke Maternal Grandmother 80 ALLERGIES: ALLERGIES Allergen Reactions Penicillin G Rash itching MEDICATIONS: estradiol (ESTRACE) 1 mg tablet Take 1 tablet by mouth once daily. levothyroxine (SYNTHROID) 50 mcg tablet take 1 tablet by mouth every day citalopram hydrobromide (CELEXA) 10 mg tablet Take 1 tablet by mouth once daily. albuterol HFA (PROVENTIL HFA, VENTOLIN HFA) 90 mcg/actuation inhaler Inhale 2 Puffs as instructed every 4 hours as needed for wheezing/shortness of breath. omega-3/dha/epa/fish oil (OMEGA-3 ORAL) Take 2,000 mg by mouth once daily. cholecalciferol (VITAMIN D3) 5,000 unit tab Take 5,000 Units by mouth once daily. loratadine (CLARITIN) 10 mg tablet Take 10 mg by mouth once daily as needed. REVIEW OF SYSTEMS: GENERAL: Negative for:Weight loss and Weight gain HEENT: Negative for:Nosebleeds RESPIRATORY: Negative for:Shortness of breath GASTROINTESTINAL: Negative for:Blood in stool MUSCULOSKELETAL: Negtive for: Muscle or joint pain, stiffness, Joint swelling SKIN: No rash HEMATOLOGICAL/LYMPHATIC: Negative for: Easy bruising and Easy bleeding CARDIOVASCULAR: As stated in HPI. 10 system review negative except as stated in HPI I have confirmed and edited as necessary, the Past, Family, Social History and Review Of Systems, obtained by my office staff. PHYSICAL EXAMINATION: BP 130/70 (BP Site: Right Arm, BP Position: Sitting, BP Cuff Size: Regular Adult) Pulse 67 Resp 18 Ht 5' 7 (1.702 m) Wt 164 lb (74.4 kg) SpO2 96% BMI 25.69 kg/m? General: Well appearing, in no acute distress, speaking in complete sentences., Well appearing. Psych: Normal Affect Eyes: No s (more content not included)... [facility] 01-31-2024 History of Presen t illness Narrative PRIMARY CARE PHYSICIAN: Magdy Larios [address] [place] [address] REFERRING PHYSICIAN: SELF CHIEF COMPLAINT: Patient presents with: CARD Follow Up 6 Month: Follow up to syncope HPI: Mrs Christian was kindly referred to me by PRATIK Patel. Her parents, Jesu, and Paty Brown are my patients as well. From a cardiac standpoint, she has a history of hypothyroidism. She is seeing me today for an issue with syncopal spells. Her last true syncopal spell was in 02/10. She woke up in the middle of the night to take her dog to the bathroom. She tried to open the door knob, and remembers waking up on the floor. She had another similar spell when she was up in the night to use the bathroom. At other times, she has felt dizzy when she stands up abruptly. Her echo from 03/15 revealed normal LV size, systolic function . LVEF 65 %. No significant valvular abnormalities were noted. She had normal RV size, systolic function. Her patch monitor results dated 03/02/2023 revealed sinus rhythm with heart rates between 47 to 166 bpm. She had very sporadic supraventricular ectopics with a burden of 0.02%. The longest event comprised of 8 beats of nonsustained supraventricular tachycardia, and the fastest event had a heart rate of 163 bpm. The PVC burden was also very low at 0.03%. Patient recorded events during the monitoring period. I offered use of prn beta lorrie therapy, but she did not want to start it yet. She denies shortness of breath, lightheadedness, dizziness or loss of consciousness. She did admit to some numbness in her left arm, and underwent a neurologic work up. Apparently the workup was negative. She does admit to high caffeine consumption. She does not drink any alcohol though. She is not aware of a family history of sudden cardiac . Her LDL was not at goal based on her lipid panel from 06/13. LDL Cholesterol Date Value Ref Range Status 05/23/2023 120 (H) <100 mg/dL Final Comment: <100 mg/dL, Optimal 100-129 mg/dL, Near optimal/above optimal 130-159 mg/dL, Borderline high 160-189 mg/dL, High >189 mg/dL, Very high Secondary prevention optimal LDL Cholesterol levels are recommended to be < 70 mg/dL PAST MEDICAL HISTORY Diagnosis Date Pain in left shoulder 12/16/2014 Rotator cuff syndrome of left shoulder 12/16/2014 PAST SURGICAL HISTORY Procedure Laterality Date APPENDECTOMY 1984 COLONOSCOPY 08/17/2018 repeat 10 years HYSTERECTOMY HX 09/2013 partial SOCIAL HISTORY Social History Tobacco Use Smoking status: Former Types: Cigarettes Start date: 02/06/2004 Smokeless tobacco: Never Vaping Use Vaping status: Never Used Substance Use Topics Alcohol use: Not Currently Drug use: No FAMILY HISTORY Problem Relation Age of Onset Arthritis Father Kidney Disease Father other (alcoholism) Father Hyperlipidemia Mother other (depression/anxiety) Mother other (substance abuse) Sister half sister Hypertension Brother other (heart disease) Brother other (alcoholism) Brother Breast Cancer Maternal Grandmother also Great GMA Stroke Maternal Grandmother 80 ALLERGIES: ALLERGIES Allergen Reactions Penicillin G Rash itching MEDICATIONS: estradiol (ESTRACE) 1 mg tablet Take 1 tablet by mouth once daily. levothyroxine (SYNTHROID) 50 mcg tablet take 1 tablet by mouth every day citalopram hydrobromide (CELEXA) 10 mg tablet Take 1 tablet by mouth once daily. albuterol HFA (PROVENTIL HFA, VENTOLIN HFA) 90 mcg/actuation inhaler Inhale 2 Puffs as instructed every 4 hours as needed for wheezing/shortness of breath. omega-3/dha/epa/fish oil (OMEGA-3 ORAL) Take 2,000 mg by mouth once daily. cholecalciferol (VITAMIN D3) 5,000 unit tab Take 5,000 Units by mouth once daily. loratadine (CLARITIN) 10 mg tablet Take 10 mg by mouth once daily as needed. REVIEW OF SYSTEMS: GENERAL: Negative for:Weight loss and Weight gain HEENT: Negative for:Nosebleeds RESPIRATORY: Negative for:Shortness of breath GASTROINTESTINAL: Negative for:Blood in stool MUSCULOSKELETAL: Negtive for: Muscle or joint pain, stiffness, Joint swelling SKIN: No rash HEMATOLOGICAL/LYMPHATIC: Negative for: Easy bruising and Easy bleeding CARDIOVASCULAR: As stated in HPI. 10 system review negative except as stated in HPI I have confirmed and edited as necessary, the Past, Family, Social History and Review Of Systems, obtained by my office staff. PHYSICAL EXAMINATION: BP 130/70 (BP Site: Right Arm, BP Position: Sitting, BP Cuff Size: Regular Adult) Pulse 67 Resp 18 Ht 5' 7 (1.702 m) Wt 164 lb (74.4 kg) SpO2 96% BMI 25.69 kg/m General: Well appearing, in no acute distress, speaking in complete sentences., Well appearing. Psych: Normal Affect Eyes: No subconjunctival hemorrhage Skin: No rash, bruising Oropharynx: Mucous membranes normal Neck: no jugular venous distention, no carotid bruits. Lymph: No cervical lymphadenopathy Lungs: Clear to auscultation bilaterally, no wheezing or rhonchi. Heart: S1, S2 normal, no murmur Extremities: No peripheral edema Neuro: Grossly nonfocal ASSESSMENT/PLAN: 1. Syncope, unspecified syncope type - ICD9: 780.2, ICD10: R55 (primary diagnosis) The description of her spells appears vasovagal. Her syncope has exclusively occurred when she wakes up to use the bathroom. She has not had any syncope in the hot weather. I went over the differentials of syncope, and her history seems to be most consistent with vasovagal syncope. I explained vasovagal syncope to her in detail, and mentioned that this syncope is generally benign. This being said, I will still proceed with 2D echocardiogram to evaluate her for structural heart disease. I also ordered a 2-week patch monitor 2. Acquired hypothyroidism - ICD9: 244.9, ICD10: E03.9 Continue levothyroxine. 3. Palpitations - ICD-10: R00.2 As described above, her monitor only revealed very sporadic premature atrial complexes, premature ventricular complexes, and 1 run of nonsustained supraventricular tachycardia. She does not want to start metoprolol therapy yet. This is fine by me. I asked her to reach out to me, if she were to develop sustained palpitations. 4. Abnormal electrocardiogram -ICD-10: R94.31 She did not have any ischemic changes as such. She did have a possible incomplete right bundle branch block. I ordered coronary calcium scoring for her. In the absence of anginal symptoms/equivalents, I will hold off on stress testing. Nicola Barillas MD The above note was partially created using a dictation recognition software. A reasonable attempt has been made to correct any errors. I have confirmed and edited as necessary, the Past, Family, Social History and Review Of Systems, obtained by my office staff. Elements of history of present illness, assessment , and plan were copied from my last office note , but have been updated where appropriate; and all reflect current medical decision making from TODAY . Physical exam listed was also completed in entirety today, and is unchanged from my last office note dated above, except where noted. Patient complains of feeling of tightness on the (R) side this is the first time it happened on this side. documented in this encounter [facility] 01-31-2024 Note HNO ID: [id number] Author: CASSANDRA DONG MA Service: ? Author Type: String Cutter Type: Progress Notes Filed: 01/31/2024 11:37 Note Text: Patient complains of feeling of tightness on the (R) side this is the first time it happened on this side. [facility] 09-25-2023 Instructions Yousif Calhoun MD - 09/25/2023 9:55 AM EDT Get labs done at [facility]. Will call with results. See me again in 12 months. 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 Complains of weight gain despite vigorous exercise daily. Is on ERT for severe menopausal symptoms, started in 2019. Still having hot flashes. No alcohol use, ex-smoker. Has family history of breast cancer. Current Outpatient Medications on File Prior to Visit Medication Sig levothyroxine (SYNTHROID) 50 mcg tablet take 1 tablet by mouth every day citalopram hydrobromide (CELEXA) 10 mg tablet Take 1 tablet by mouth once daily. albuterol HFA (PROVENTIL HFA, VENTOLIN HFA) 90 mcg/actuation inhaler Inhale 2 Puffs as instructed every 4 hours as needed for wheezing/shortness of breath. omega-3/dha/epa/fish oil (OMEGA-3 ORAL) Take 2,000 mg by mouth once daily. estradiol (ESTRACE) 1 mg tablet Take 1 tablet by mouth once daily. cholecalciferol (VITAMIN D3) 5,000 unit tab Take 5,000 Units by mouth once daily. loratadine (CLARITIN) 10 mg tablet Take 10 mg by mouth once daily as needed. ALLERGIES Allergen Reactions Penicillin G Rash itching PAST MEDICAL HISTORY 12/16/2014: Pain in left shoulder 12/16/2014: Rotator cuff syndrome of left shoulder PAST SURGICAL HISTORY 1984: APPENDECTOMY 08/17/2018: COLONOSCOPY Comment: repeat 10 years 09/2013: HYSTERECTOMY HX Comment: partial FAMILY HISTORY Problem Relation Age of Onset Arthritis Father Kidney Disease Father other (alcoholism) Father Hyperlipidemia Mother other (depression/anxiety) Mother other (substance abuse) Sister half sister Hypertension Brother other (heart disease) Brother other (alcoholism) Brother Breast Cancer Maternal Grandmother also Great GMA Stroke Maternal Grandmother 80 Social History Tobacco Use Smoking status: Former Years: 22 Types: Cigarettes Start date: 02/06/2004 Smokeless tobacco: Never Vaping Use Vaping Use: Never used Substance Use Topics Alcohol use: Not Currently Drug use: No Answers submitted by the patient for this visit: Core Review of Systems (Submitted on 09/24/2023) Night sweats: Yes Recent unintentional weight change: Yes Nasal Congestion: No Hearing Loss: No Vision Disturbance: No A cough: No Difficulty Breathing?: No Chest pain: No Irregular heartbeat: No Leg Swelling: No Nausea: No Diarrhea: No Black tarry stools: No Difficulty Urinating?: No Awaken at Night More Than Once to Urinate?: No Joint pain or stiffness: No Muscle aches: No Leg or Foot Discomfort at Night?: No A rash: No Dizziness: Yes Headaches: Yes Memory Loss: No Seizures: No BP 125/79 Pulse (!) 51 Ht 170.5 cm (5' 7.13) Wt 71.2 kg (156 lb 15.5 oz) SpO2 99% BMI 24.49 kg/m General appearance: Well-appearing female, alert, in no acute distress, well-hydrated, well nourished. BP normal, pulse regular. Weight down 14 pounds since 08/2022 Skin: Skin color, texture, turgor normal, no suspicious rashes or lesions Head: normocephalic, no masses, lesions, tenderness or abnormalities Eyes: Anicteric sclera. Pupils are equally round. Extraocular movements are intact. Ears: not examined Nose/Sinuses: Nares normal. No drainage or sinus tenderness. Oropharynx: Lips, mucosa, and tongue normal, teeth and gums not examined. Neck: Supple, no adenopathy; no palpable thyroid enlargement. Lungs: Breathing unlabored. Heart: RRR. No ectopy Abdomen: deferred Extremities: No deformities, edema, skin discoloration, clubbing or cyanosis. Good capillary refill. Musculoskeletal: Spine range of motion not tested. Muscular strength intact, No joint swelling, deformity, or tenderness Peripheral pulses: Normal Neuro: Gait normal. Sensation grossly intact. Latest Reference Range & Units 05/23/23 08:13 Sodium 136 - 144 mmol/L 140 Potassium 3.7 - 5.1 mmol/L 4.5 Chloride 97 - 105 mmol/L 103 CO2 22 - 30 mmol/L 28 BUN 7 - 21 mg/dL 18 Creatinine 0.58 - 0.96 mg/dL 0.98 (H) Glucose 74 - 99 mg/dL 95 Protein, Total 6.3 - 8.0 g/dL 6.5 Calcium 8.5 - 10.2 mg/dL 9.6 Albumin 3.9 - 4.9 g/dL 4.1 Bilirubin, Total 0.2 - 1.3 mg/dL 1.0 Alkaline Phosphatase 34 - 123 U/L 83 ALT 7 - 38 U/L 21 AST 13 - 35 U/L 22 Anion Gap 9 - 18 mmol/L 9 eGFR >=60 mL/min/1.73m 68 Cholesterol, Total <200 mg/dL 217 (H) Triglyceride <150 mg/dL 51 HDL Cholesterol >39 mg/dL 87 LDL Cholesterol <100 mg/dL 120 (H) Free T4 0.9 - 1.7 ng/dL 1.2 TSH 0.270 - 4.200 mIU/L 3.830 (H): Data is abnormally high IMPRESSION: Primary hypothyroidism - recheck TFTs Menopause on ERT - continue ERT for severe menopausal symptoms PLAN: Recheck thyroid labs See me again in 12 months. Yousif Calhoun MD I spent a total of 30 minutes on the date of service which included preparing to see the patient, [id number] patient care, completing clinical documentation, performing a medically appropriate examination, counseling and educating the patient/family/caregiver and ordering medications, tests, or procedures. documented in this encounter [facility] 08-08-2023 Telephone encounter Note Requester: Pharmacy Last Visit in Endocrinology: Provider name: Yousif Calhoun MD , Date 08/22/2022 Next Scheduled Appt in Endo: 09/25/2023 Last Refill: 08/22/2022 Number of Refills given: 3 Requested Prescriptions Pending Prescriptions Disp Refills levothyroxine (SYNTHROID) 50 mcg tablet [Pharmacy Med Name: LEVOTHYROXINE 50 MCG TABLET] 90 tablet 3 Sig: take 1 tablet by mouth every day Please review and advise. eJs Epps MA [facility] 08-08-2023 Miscellaneous Notes Requester: Pharmacy Last Visit in Endocrinology: Provider name: Yousif Calhoun MD , Date 08/22/2022 Next Scheduled Appt in Endo: 09/25/2023 Last Refill: 08/22/2022 Number of Refills given: 3 Requested Prescriptions Pending Prescriptions Disp Refills levothyroxine (SYNTHROID) 50 mcg tablet [Pharmacy Med Name: LEVOTHYROXINE 50 MCG TABLET] 90 tablet 3 Sig: take 1 tablet by mouth every day Please review and advise. Jes Epps MA documented in this encounter [facility] 06-16-2023 Telephone encounter Note Called pt let her know the results Yamilka Freedman MA [facility] 06-16-2023 Miscellaneous Notes Called pt let her know the results Yamilka Freedman MA ----- Message from Magdy Larios APRN.SUPPLY CHAIN ANALYST sent at 06/15/2023 1:25 PM EDT ----- Mammogram normal. Follow up routine yearly screening Magdy Larios APRN.CNP documented in this encounter [facility] 06-16-2023 Telephone encounter Note ----- Message from Magdy Larios APRN.SUPPLY CHAIN ANALYST sent at 06/15/2023 1:25 PM EDT ----- Mammogram normal. Follow up routine yearly screening Magdy Larios APRN.SUPPLY CHAIN ANALYST [facility] 06-15-2023 Note Formatting of this n ote might be different from the original. [address] [address] June 15, 2023 PID: [id number] Gayle Christian [address] [place] [address] [place] [address] Dear Ms. Christian, We are pleased to inform you that the results of your recent breast imaging exam on 06/14/2023 are normal. Your mammogram demonstrates that you have dense breast tissue, which could hide abnormalities. Dense breast tissue, in and of itself, is a relatively common condition. Therefore, this information is not provided to cause undue concern; rather, it is to raise your awareness and promote discussion with your health care provider regarding the presence of dense breast tissue in addition to other risk factors. Early detection of cancer is very important. We also understand recommendations regarding breast cancer screening are controversial. Please discuss with your primary care provider which strategy is best for you and whether a mammogram is right for you. Your imaging studies and report will be kept on file at [facility] as part of your permanent medical record and are available for your continuing care. Thank you for allowing us to help in meeting your health care needs. Sincerely, Dr. Dick Interpreting Radiologist [facility] (Normal over 40) [facility] 06-15-2023 Miscellaneous Notes [address] [address] June 15, 2023 PID: [id number] Gayle Christian [address] [place] [address] [place] [address] Dear Ms. Christian, We are pleased to inform you that the results of your recent breast imaging exam on 06/14/2023 are normal. Your mammogram demonstrates that you have dense breast tissue, which could hide abnormalities. Dense breast tissue, in and of itself, is a relatively common condition. Therefore, this information is not provided to cause undue concern; rather, it is to raise your awareness and promote discussion with your health care provider regarding the presence of dense breast tissue in addition to other risk factors. Early detection of cancer is very important. We also understand recommendations regarding breast cancer screening are controversial. Please discuss with your primary care provider which strategy is best for you and whether a mammogram is right for you. [facility] imaging studies [facility] report [facility] [facility] as part of your permanent medical record and are available for your continuing care. Thank you for allowing us to help in meeting your health care needs. Sincerely, Dr. Dick Interpreting Radiologist [facility] (Normal over 40) documented in this encounter [facility] 06-14-2023 History of Presen t illness Narrative Radiology Service Progress Note PATIENT NAME: Gayle Christian DATE OF SERVICE: June 14, 2023 TIME: 4:11 PM PATIENT IDENTITY VERIFICATION COMPLETED USING TWO (2) IDENTIFIERS: Name and Date of confirmed by patient verbally. FALL SCREENING: Has the patient had 2 falls in the last year or 1 fall with injury or currently using an Ambulatory Assistive Device (Walker, Cane, Wheelchair, Crutches, etc.)? No PATIENT GENDER DATA: Female. status: : No status: N/A PATIENT RELEVANT IMPLANT DATA REVIEWED: Not Applicable PATIENT PRESENTS WITH AN IMPLANTABLE OR ATTACHED POLICE OR PATROL PARK OFFICER: No RADIOLOGY DEPARTMENT: Mammography PERIPHERAL IV DATA: Not applicable SIGNED BY: RT Daily(R) June 14, 2023 4:11 PM documented in this encounter [facility] 05-23-2023 Instructions Magdy Larios APRN.CNP - 05/23/2023 9:18 AM EDT ASSESSMENT/PLAN: 1. Wellness examination - ICD9: V70.0, ICD10: Z00.00 (primary diagnosis) - Counseled on healthy diet and regular exercise - Calcium intake with supplements or by diet of 1000 mg/day for under 50, 7103-3430 mg/day for 50+ - Mammogram ordered - exam recommended once yearly - Depression screening tool completed and reviewed with patient. Based on score and interview, patient is already diagnosed with depression and recommended no further intervention at this time. - Follow up for annual exam in one year 2. Anxiety - ICD9: 300.00, ICD10: F41.9 - chronic, - CITALOPRAM 10 MG TABLET 3. Hypothyroidism, unspecified type - ICD9: 244.9, ICD10: E03.9 - Instructed patient on importance of taking on an empty stomach either first thing in the morning or at bedtime. - continue current dose of Synthroid 0.050 mg 4. Encounter for screening mammogram for malignant neoplasm of breast - ICD9: V76.12, ICD10: Z12.31 - GREGORIO SCREENING W AILEEN Larios APRN.SUPPLY CHAIN ANALYST documented in this encounter [facility] 05-23-2023 History of Presen t illness Narrative This note was created using LastRoomriter. Subjective Gayle Christian is a 57 year old female here today for WAE. PMH hypothyroidism, anxiety. Patient denies changes in health since last office visit. Reports feeling well. Denies concerns or complaints today. I reviewed patients past medical, surgical, social, and family histories today and updated chart. Allergies, chronic medications, and supplements were also reviewed and list is now up to date. Anxiety: she is taking celexa 10 mg daily. She was started on celexa last year for anxiety. States her anxiety is controlled. States she feels blah all the time. Denies feeling depressed. She admits to not having much emotions. She also was put on this for menopausal hot flashes. She went on estrogen to help control her hot flashes. This is prescribed by her DIRECTOR ONLINE MARKETING who she reports is retiring and she is going to wean off the estrogen. States it has not really helped the way she feels. THE LAST 2 WEEKS, HAVE YOU BEEN BOTHERED BY ANY OF THE FOLLOWING? - Little interest or pleasure in doing things 1 SEVERAL DAYS Feeling down, depressed, or hopeless 0 Trouble falling or staying asleep, or sleeping too much 3 Feeling tired or having little energy 2 Poor appetite or overeating 0 Feeling bad yourself-you are a failure or have let yourself or others 0 Trouble concentrating, like reading the paper or watching TV 0 Moving/speaking slowly (others notice) OR being more fidgety/restless 0 Thoughts that you would be better off or of hurting yourself 0 PHQ TOTAL SCORE = 6 PHQ problems effect on difficulty of work, home, and social activity: 1 - NOT DIFFICULT AT ALL Feeling nervous, anxious, or on edge 0 Not at all sure Not being able to stop or control worrying 0 Not at all sure Worrying too much about different things 0 Not at all sure Trouble relaxing 0 Not at all sure Being so restless that it's hard to sit still 0 Not at all sure Being easily annoyed or irritable 2 Over half the days Feeling afraid as if something awful might happen 0 Not at all sure PAOLO-7 Anxiety Score 2 If you checked off any problems, how difficult have these problems made it for you to do your work, take care of things at home, or get along with other people? Somewhat difficult Hypothyroidism: she is taking levothyroxine 50 mcg daily. She is seeing Dr Calhoun for management. She was last seen 08/22/22. He also prescribes her estradiol for sever menopausal symptoms that started in 2019. She reports she went off her estradiol from December until 3 wks ago. States reports in February and mar she would get sharp pains in her head, bad hot flashes(11 in one day), unable to sleep. States she went back on it 3 wks ago. Preventative: she is due for mammogram in June and labs. She is not interested in flu or COVID vaccines. Last pap She sees DIRECTOR [employer] MARKET[employer] Dr Gusman in [place]. colonoscopy at age 52 follow up 10 yrs. Pt is very active. 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 Some elements of above documentation were copied from my progress note of 04/21/22 and have been reexamined and updated where appropriate. All elements reflect the current assessment and medical decision making today . Review of Systems Constitutional: Negative for activity change, appetite change, chills, diaphoresis, fatigue, fever and unexpected weight change. HENT: Negative for sore throat and trouble swallowing. Eyes: Negative for photophobia and visual disturbance. Respiratory: Negative for cough, chest tightness, shortness of breath and wheezing. Cardiovascular: Negative for chest pain, palpitations and leg swelling. Gastrointestinal: Negative for abdominal pain, blood in stool, constipation, diarrhea, nausea and vomiting. Endocrine: Negative. Genitourinary: Negative for difficulty urinating, dysuria and hematuria. Musculoskeletal: Negative for arthralgias, back pain, myalgias and neck pain. Skin: Negative. Neurological: Negative for dizziness, weakness and headaches. Hematological: Negative. Psychiatric/Behavioral: Negative for sleep disturbance. The patient is not nervous/anxious. Objective BP 100/60 (BP Site: Left Arm, BP Position: Sitting, BP Cuff Size: Regular Adult) Temp 36.8 C (98.2 F) (Oral) Resp 18 Ht 172.7 cm (5' 8) Wt 66.3 kg (146 lb 3.2 oz) BMI 22.23 kg/m Physical Exam Vitals and nursing note reviewed. Constitutional: General: She is not in acute distress. Appearance: Normal appearance. She is not ill-appearing or diaphoretic. HENT: Head: Normocephalic and atraumatic. Right Ear: External ear normal. Left Ear: External ear normal. Nose: Nose normal. No congestion or rhinorrhea. Mouth/Throat: Pharynx: No oropharyngeal exudate. Eyes: General: Lids are normal. No scleral icterus. Right eye: No discharge. Left eye: No discharge. Conjunctiva/sclera: Conjunctivae normal. Pupils: Pupils are equal, round, and reactive to light. Neck: Vascular: Normal carotid pulses. No carotid bruit. Cardiovascular: Rate and Rhythm: Normal rate and regular rhythm. Pulses: Normal pulses. Carotid pulses are 2+ on the right side and 2+ on the left side. Radial pulses are 2+ on the right side and 2+ on the left side. Heart sounds: Normal heart sounds, S1 normal and S2 normal. No murmur heard. No friction rub. No gallop. Pulmonary: Effort: Pulmonary effort is normal. No accessory muscle usage or respiratory distress. Breath sounds: Normal breath sounds. No decreased air movement. No decreased breath sounds, wheezing, rhonchi or rales. Chest: Chest wall: No tenderness. Abdominal: General: Bowel sounds are normal. There is no distension. Palpations: Abdomen is soft. Tenderness: There is no abdominal tenderness. There is no right CVA tenderness, left CVA tenderness, guarding or rebound. Comments: Slight tenderness right lower quad Musculoskeletal: General: No tenderness. Normal range of motion. Cervical back: Normal range of motion and neck supple. Right lower leg: No edema. Left lower leg: No edema. Skin: General: Skin is warm and dry. Coloration: Skin is not pale. Findings: No erythema or rash. Nails: There is no clubbing. Neurological: General: No focal deficit present. Mental Status: She is alert and oriented to person, place, and time. Motor: No abnormal muscle tone. Coordination: Coordination normal. Deep Tendon Reflexes: Reflexes are normal and symmetric. Psychiatric: Attention and Perception: Attention and perception normal. Mood and Affect: Mood normal. Speech: Speech normal. Behavior: Behavior normal. Behavior is cooperative. Thought Content: Thought content normal. Cognition and Memory: Cognition and memory normal. Judgment: Judgment normal. ASSESSMENT/PLAN: 1. Wellness examination - ICD9: V70.0, ICD10: Z00.00 (primary diagnosis) - Counseled on healthy diet and regular exercise - Calcium intake with supplements or by diet of 1000 mg/day for under 50, 8952-6830 mg/day for 50+ - Mammogram ordered - exam recommended once yearly - Depression screening tool completed and reviewed with patient. Based on score and interview, patient is already diagnosed with depression and recommended no further intervention at this time. - Follow up for annual exam in one year 2. Anxiety - ICD9: 300.00, ICD10: F41.9 - chronic, continue celexa. - CITALOPRAM 10 MG TABLET 3. Hypothyroidism, unspecified type - ICD9: 244.9, ICD10: E03.9 - Instructed patient on importance of taking on an empty stomach either first thing in the morning or at bedtime. - continue current dose of Synthroid 0.050 mg 5. Family history of breast cancer - ICD9: V16.3, ICD10: Z80.3 - CONSULT TO MEDICAL GENETICS - CANCER Magdy Larios APRN.SUPPLY CHAIN ANALYST documented in this encounter [facility] 05-01-2023 Miscellaneous Notes Last OV 04/21/22 Called pt left Vm that she is due for OV and no further refills till she is seen in the office Pharmacy calls in requesting the following refill(s): Requested Prescriptions Pending Prescriptions Disp Refills citalopram hydrobromide (CELEXA) 10 mg tablet [Pharmacy Med Name: CITALOPRAM HBR 10 MG TABLET] 30 tablet 0 Sig: take 1 tablet by mouth every day Yamilka Freedman MA documented in this encounter [facility] 03-05-2023 Miscellaneous Notes Plan: The results dated 03/02/2023 Sinus rhythm with heart rates between 47 to 166 bpm. She had very sporadic supraventricular ectopics with a burden of 0.02%. The longest event comprised of 8 beats of nonsustained supraventricular tachycardia, and the fastest event had a heart rate of 163 bpm. The PVC burden was also very low at 0.03%. Patient recorded events during the monitoring period. Patient symptoms correlated with sinus rhythm only. Since her PAC/PVC burden is very low, I do not think that she needs scheduled beta-lorrie therapy. Her symptoms did not correlate with arrhythmias either, but I will be happy to prescribe metoprolol tartrate 25 mg twice daily to be used as necessary for palpitations. If she is agreeable, please set up a 30-day supply of the same. documented in this encounter [facility] 10-27-2022 Miscellaneous Notes Summary: Reschedule f/u appt. I called pt spoke with her to reschedule appointment on 02-02-2023. At 8:[address] Barillas. [place] October 27, 2022 2:19 PM documented in this encounter [facility] 08-25-2022 Miscellaneous Notes Called pt let her know the results Yamilka Freedman MA ----- Message from Magdy Larios APRN.SUPPLY CHAIN ANALYST sent at 08/23/2022 7:08 PM EDT ----- Cbc stable Cmp still shows creatinine minimally elevated. Avoid NSAIDS Lipids at goal documented in this encounter [facility] 08-25-2022 Miscellaneous Notes Called pt let her know the results Yamilka Freedman MA ----- Message from Magdy Larios APRN.SUPPLY CHAIN ANALYST sent at 08/23/2022 7:08 PM EDT ----- Cbc stable Cmp still shows creatinine minimally elevated. Avoid NSAIDS Lipids at goal documented in this encounter [facility] 08-22-2022 Instructions Yousif Calhoun MD - 08/22/2022 1:28 PM EDT Increase levothyroxine to 0.05 mg daily. Recheck thyroid labs again on or after 10/03/2022. See me again in 12 months. 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 Started on levothyroxine daily last year. Still feels fatigue. Sleeps for 8 hours but is interrupted by frequent awakenings. Feels rested on awakening, however. Is on ERT for severe menopausal symptoms, started in 2019. No alcohol use, ex-smoker. Has family history of breast cancer. Current Outpatient Medications on File Prior to Visit Medication Sig citalopram hydrobromide (CELEXA) 10 mg tablet TAKE 1 TABLET BY MOUTH EVERY DAY cholecalciferol (VITAMIN D3) 5,000 unit tab Take 5,000 Units by mouth once daily. ascorbic acid, vitamin C, (VITAMIN C) 250 mg tablet Take 250 mg by mouth once daily. Multivitamin capsule Take 1 capsule by mouth once daily. levothyroxine (SYNTHROID) 25 mcg tablet TAKE 1 TABLET BY MOUTH EVERY DAY loratadine (CLARITIN) 10 mg tablet Take 10 mg by mouth once daily as needed. Estradiol (ESTRACE) 1 mg tablet Take 1 mg by mouth once daily. keTORolac Tromethamine (ACLUAR LS) 0.4 % drop Use 1 Drop in the left eye every 6 hours as needed. albuterol HFA (PROAIR HFA) 90 mcg/actuation inhaler 2 Puffs every 6 hours as needed. Take as directed ALLERGIES Allergen Reactions Penicillin G Rash itching PAST MEDICAL HISTORY Diagnosis Date Pain in left shoulder 12/16/2014 Rotator cuff syndrome of left shoulder 12/16/2014 PAST SURGICAL HISTORY Procedure Laterality Date APPENDECTOMY 1984 COLONOSCOPY 08/17/2018 repeat 10 years HYSTERECTOMY HX 09/2013 partial FAMILY HISTORY Problem Relation Age of Onset Arthritis Father Kidney Disease Father other (alcoholism) Father Hyperlipidemia Mother other (depression/anxiety) Mother other (substance abuse) Sister half sister Hypertension Brother other (heart disease) Brother other (alcoholism) Brother Breast Cancer Maternal Grandmother also Great GMA Stroke Maternal Grandmother 80 Social History Tobacco Use Smoking status: Former Years: . Types: Cigarettes Start date: 02/06/2004 Smokeless tobacco: Never Substance Use Topics Alcohol use: Not Currently Drug use: No Answers submitted by the patient for this visit: Endocrine Review of Systems (Submitted on 08/15/2022) Fatigue: Yes Night Sweats: Yes Recent Unintentional Weight Change: No Skin Color Changes: No Post-Nasal Drip: No Thyroid Pain (lower neck): No Trouble Swallowing: No Vision Disturbance: Yes Chest Pain: No Leg Swelling: No Blood Clots?: No Leg Pain while walking?: No Difficulty Breathing?: No Heartburn: No Nausea: No Vomiting?: No Diarrhea: No Constipation: No Abdominal Pain: No Bone Pain?: No Muscle Aches: No Muscle Weakness: No Joint Pain or Stiffness: No Headaches: Yes Dizziness: Yes Numbness?: No Urgency to Urinate?: No Increased Urination?: No Slow or Small Urine Stream?: No Are your menstrual cycles regular?: No Are your menstrual cycles irregular?: No Have your menstrual cycles stopped?: Yes Flushing?: Yes Hot Flashes?: Yes Increased Thirst: Yes Change in Body Hair?: Yes Cold Intolerance: Yes Heat Intolerance?: Yes BP 119/80 Pulse (!) 59 Ht 172.5 cm (5' 7.91) Wt 77.1 kg (170 lb) SpO2 100% BMI 25.91 kg/m General appearance: Well-appearing, overweight (BMI greater than 25) female, alert, in no acute distress, well-hydrated, well nourished. BP normal, pulse regular. Skin: Skin color, texture, turgor normal, no suspicious rashes or lesions Head: normocephalic, no masses, lesions, tenderness or abnormalities Eyes: Anicteric sclera. Pupils are equally round. Extraocular movements are intact. Ears: not examined Nose/Sinuses: Nares normal. No drainage or sinus tenderness. Oropharynx: Lips, mucosa, and tongue normal, teeth and gums not examined. Neck: Supple, no adenopathy; no palpable thyroid enlargement. Lungs: Breathing unlabored. Heart: RRR. No ectopy Abdomen: deferred Extremities: No deformities, edema, skin discoloration, clubbing or cyanosis. Good capillary refill. Musculoskeletal: Spine range of motion not tested. Muscular strength intact, No joint swelling, deformity, or tenderness Peripheral pulses: Normal Neuro: Gait normal. Sensation grossly intact. Latest Reference Range & Units 02/23/22 12:38 08/19/22 07:25 Sodium 136 - 144 mmol/L 141 Potassium 3.7 - 5.1 mmol/L 4.2 Chloride 97 - 105 mmol/L 103 CO2 22 - 30 mmol/L 26 BUN 7 - 21 mg/dL 17 Creatinine 0.58 - 0.96 mg/dL 1.07 (H) Glucose 74 - 99 mg/dL 97 Protein, Total 6.3 - 8.0 g/dL 7.0 Calcium 8.5 - 10.2 mg/dL 9.7 Albumin 3.9 - 4.9 g/dL 4.3 Bilirubin, Total 0.2 - 1.3 mg/dL 0.8 Alkaline Phosphatase 34 - 123 U/L 78 ALT 7 - 38 U/L 17 AST 13 - 35 U/L 24 Anion Gap 9 - 18 mmol/L 12 eGFR >=60 mL/min/1.73m 62 Cholesterol, Total <200 mg/dL 188 Triglyceride <150 mg/dL 66 HDL Cholesterol >39 mg/dL 85 LDL Cholesterol <100 mg/dL 90 Free T4 0.9 - 1.7 ng/dL 1.1 TSH 0.270 - 4.200 mIU/L 3.970 (H): Data is abnormally high IMPRESSION: Primary hypothyroidism - may well benefit from levothyroxine dose increase, to get TSH nearer to 1.0 Fatigue - will pursue further if does not respond to dose increase, may be able to taper off Celexa at some point Menopause on ERT - continue ERT for severe menopausal symptoms PLAN: Increase levothyroxine to 0.05 mg daily. Recheck thyroid labs again on or after 10/03/2022. See me again in 12 months. Thank you for this kind consultation. Yousif Calhoun MD Consultation requested by INVESTMENT OFFICER Magdy Larios for an opinion regarding hypothyroidism. My final recommendations will be communicated back to the requesting physician by way of shared Medical record or letter to requesting physician via US mail. I spent 45 minutes in the visit, with more than 50% of the total [id number] time of the visit in counseling / coordination of care. documented in this encounter [facility] 07-19-2022 Miscellaneous Notes Last OV 04/21/22 Called pt left VM that she is due for labs no further refills till she get them done Pharmacy calls in requesting the following refill(s): Pharmacy calls in requesting the following refill(s): Requested Prescriptions Pending Prescriptions Disp Refills citalopram hydrobromide (CELEXA) 10 mg tablet [Pharmacy Med Name: CITALOPRAM HBR 10 MG TABLET] 30 tablet 0 Sig: TAKE 1 TABLET BY MOUTH EVERY DAY Yamilka Freedman MA documented in this encounter [facility] 06-02-2022 Miscellaneous Notes Called pt left VM with results Yamilka Freedman MA ----- Message from Magdy Larios APRN.SUPPLY CHAIN ANALYST sent at 06/02/2022 6:48 AM EDT ----- Mammogram negative IMPRESSION IMPRESSION: NEGATIVE There is no mammographic evidence of malignancy. A 1 year screening mammogram is recommended. documented in this encounter [facility] 06-01-2022 [place] [address] June 02, 2022 PID: [id number] Gayle Christian [address] [place] [address] Dear Ms. Christian, We are pleased to inform you that the results of your recent breast imaging exam on 05/31/2022 are normal. Early detection of cancer is very important. We also understand recommendations regarding breast cancer screening are controversial. Please discuss with your primary care provider which strategy is best for you and whether a mammogram is right for you. Your imaging studies and report will be kept on file at [facility] as part of your permanent medical record and are available for your continuing care. Thank you for allowing us to help in meeting your health care needs. Sincerely, Dr. Dick Interpreting Radiologist [facility] (Normal over 40) documented in this encounter [facility] 05-31-2022 History of Presen t illness Narrative Radiology Service Progress Note PATIENT NAME: Gayle Christian DATE OF SERVICE: May 31, 2022 TIME: 5:28 PM PATIENT IDENTITY VERIFICATION COMPLETED USING TWO (2) IDENTIFIERS: Name and Date of confirmed by patient verbally. FALL SCREENING: Has the patient had 2 falls in the last year or 1 fall with injury or currently using an Ambulatory Assistive Device (Walker, Cane, Wheelchair, Crutches, etc.)? No PATIENT GENDER DATA: Female. status: : No status: N/A PATIENT RELEVANT IMPLANT DATA REVIEWED: Not Applicable RADIOLOGY DEPARTMENT: Mammography PERIPHERAL IV DATA: Not applicable SIGNED BY: RT Daily(R) May 31, 2022 5:28 PM documented in this encounter [facility] 05-23-2022 Miscellaneous Notes Noted. It is okay for pt to wait for an appt. There is no emergent need for her to be seen right away. If she feels she needs to be seen sooner she can schedule with another provider. Dr. Barillas does not have any INVESTMENT OFFICER appointments available. The patient has been given the option to wait until after July of this year to be called back to schedule for a future appointment if available, or scheduled with another entry level assistant manager. Please advise. Vale Blanco documented in this encounter [facility] 04-21-2022 Miscellaneous Notes Received referral from pt's PCP for Palpitations. Pt pref Eran @ [facility] w/ pt indicating no availability for Dr. Barillas @ [facility] nor [facility]. Requested pt callback to schedule w/ a different MD or at a later date when the July schedule opens Tesfaye Rodriguez April 21, 2022 2:23 PM documented in this encounter [facility] 04-21-2022 Instructions Magdy Larios APRN.CNP - 04/21/2022 9:47 AM EST ASSESSMENT/PLAN: 1. Wellness examination - ICD9: V70.0, ICD10: Z00.00 (primary diagnosis) - Counseled on healthy diet and regular exercise - Calcium intake with supplements or by diet of 1000 mg/day for under 50, 1439-1502 mg/day for 50+ - Mammogram ordered - exam recommended once yearly - Counseled patient on limiting alcohol intake to 1 drink per day - Depression screening tool completed and reviewed with patient. Based on score and interview, patient is at risk for depression and recommended no further intervention at this time. - Follow up for annual exam in one year 2. Hypothyroidism, unspecified type - ICD9: 244.9, ICD10: E03.9 - Instructed patient on importance of taking on an empty stomach either first thing in the morning or at bedtime. - continue current dose of Synthroid 0.025 mg Stable 3. Anxiety - ICD9: 300.00, ICD10: F41.9 - chronic stable - continue celexa 4. Palpitations - ICD9: 785.1, ICD10: R00.2 - ECG COMPLETE 5. Screening for deficiency anemia - ICD9: V78.1, ICD10: Z13.0 - CBC 6. Encounter for screening for diabetes mellitus - ICD9: V77.1, ICD10: Z13.1 - COMP METABOLIC PANEL 7. Screening, lipid - ICD9: V77.91, ICD10: Z13.220 - LIPID PANEL BASIC 8. Encounter for screening mammogram for breast cancer - ICD9: V76.12, ICD10: Z12.31 - GREGORIO SCREENING W AILEEN Larios APRN.SUPPLY CHAIN ANALYST documented in this encounter [facility] 04-21-2022 History of Presen t illness Narrative This note was created using [employer]. Subjective Gayle Christian is a 56 year old female here today for WAE. PMH hypothyroidism, anxiety. Patient denies changes in health since last office visit. Reports feeling well. Denies concerns or complaints today. She reports having an appt with ENT for continued tickle in her throat. She also scheduled appt with endo for her thyroid. I reviewed her past medical, surgical, social, and family histories today and updated chart. Allergies, chronic medications, and supplements were also reviewed and her list is now up to date. Anxiety: she is taking celexa 10 mg daily. She was started on celexa last year for anxiety. States her anxiety is controlled. States she feels blah all the time. Denies feeling depressed. She also was put on this for menopausal hot flashes. She went on estrogen to help control her hot flashes. This is prescribed by her [employer] who she reports is retiring and she is going to wean off the estrogen. States it has not really helped the way she feels. Preventative: she is due for mammogram in June and labs. She is not interested in flu or COVID vaccines. Last pap She sees DIRECT[employer] Dr Gusman in [place]. colonoscopy at age 52 follow up 10 yrs. Pt is very active. 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 Reports hysterectomy 2013 for endometriosis. She reports having one ovary. She reports last year hot flashes were worse but now have improved. Reports she feels much better than last year. She is on estrace for menopause per her [employer]. Some elements of above documentation were copied from my progress note of 04/12/21 and have been reexamined and updated where appropriate. All elements reflect the current assessment and medical decision making today . ALLERGIES Allergen Reactions Penicillin G Rash itching Current Outpatient Medications Medication Sig Dispense Refill citalopram hydrobromide (CELEXA) 10 mg tablet TAKE 1 TABLET BY MOUTH EVERY DAY 90 tablet 0 levothyroxine (SYNTHROID) 25 mcg tablet TAKE 1 TABLET BY MOUTH EVERY DAY 90 tablet 1 loratadine (CLARITIN) 10 mg tablet Take 10 mg by mouth once daily. Estradiol (ESTRACE) 0.5 mg tablet Take 0.5 mg by mouth once daily. keTORolac Tromethamine (ACLUAR LS) 0.4 % drop Use 1 Drop in the left eye every 6 hours as needed. 5 mL 0 albuterol HFA (PROAIR HFA) 90 mcg/actuation inhaler 2 Puffs every 6 hours as needed. Take as directed 1 Inhaler 1 No current facility-administered medications for this visit. ACTIVE PROBLEM LIST Pain in Left Shoulder Rotator Cuff Syndrome of Left Shoulder Examination, Medical, General Light Headed Anxiety PAST MEDICAL HISTORY Diagnosis Date Pain in left shoulder 12/16/2014 Rotator cuff syndrome of left shoulder 12/16/2014 PAST SURGICAL HISTORY Procedure Laterality Date APPENDECTOMY 1984 COLONOSCOPY 08/17/2018 repeat 10 years HYSTERECTOMY HX 09/2013 partial Social History Tobacco Use Smoking status: Former Years: 20.00 Types: Cigarettes Start date: 02/06/2004 Smokeless tobacco: Never Substance Use Topics Alcohol use: Not Currently Drug use: No Family History Problem Relation Age of Onset Arthritis Father Kidney Disease Father other (alcoholism) Father Hyperlipidemia Mother other (depression/anxiety) Mother other (substance abuse) Sister half sister Hypertension Brother other (heart disease) Brother other (alcoholism) Brother Breast Cancer Maternal Grandmother also Great GMA Stroke Maternal Grandmother 80 Review of Systems Constitutional: Negative for activity change, appetite change, chills, diaphoresis, fatigue, fever and unexpected weight change. HENT: Negative for congestion, ear pain, postnasal drip, sinus pressure, sinus pain, sore throat and trouble swallowing. Reports sinus congestion and BARKER several weeks ago. Eyes: Negative for photophobia, pain, discharge and visual disturbance. Respiratory: Negative for cough, chest tightness, shortness of breath and wheezing. Cardiovascular: Positive for palpitations. Negative for chest pain and leg swelling. Episodic racing with also reported low HR in the 40s. Gastrointestinal: Negative for abdominal pain, blood in stool, constipation, diarrhea, nausea and vomiting. Endocrine: Negative. Negative for cold intolerance, heat intolerance, polydipsia, polyphagia and polyuria. Genitourinary: Negative for difficulty urinating, dysuria, frequency, hematuria and urgency. Musculoskeletal: Negative for arthralgias, back pain, myalgias and neck pain. Skin: Negative for color change and rash. Neurological: Positive for syncope. Negative for dizziness, weakness and headaches. Reports 2 episodes of syncope after getting out of bed in the am. No recent events. She can not recall when the last episode was. She believes last year some time. Hematological: Negative. Negative for adenopathy. Does not bruise/bleed easily. Psychiatric/Behavioral: Negative for dysphoric mood and sleep disturbance. The patient is not nervous/anxious. Objective 04/21/22 0901 BP: 118/66 Pulse: 64 Resp: 16 Temp: 36.5 C (97.7 F) SpO2: 99% Weight: 78.2 kg (172 lb 6.4 oz) Height: 170.2 cm (5' 7) Physical Exam Vitals and nursing note reviewed. Constitutional: General: She is not in acute distress. Appearance: Normal appearance. She is not ill-appearing or diaphoretic. HENT: Head: Normocephalic and atraumatic. Right Ear: External ear normal. Left Ear: External ear normal. Nose: Nose normal. No congestion or rhinorrhea. Mouth/Throat: Pharynx: No oropharyngeal exudate. Eyes: General: Lids are normal. No scleral icterus. Right eye: No discharge. Left eye: No discharge. Conjunctiva/sclera: Conjunctivae normal. Pupils: Pupils are equal, round, and reactive to light. Neck: Vascular: Normal carotid pulses. No carotid bruit. Cardiovascular: Rate and Rhythm: Normal rate and regular rhythm. Pulses: Normal pulses. Heart sounds: Normal heart sounds, S1 normal and S2 normal. No murmur heard. No friction rub. No gallop. Pulmonary: Effort: Pulmonary effort is normal. No accessory muscle usage or respiratory distress. Breath sounds: Normal breath sounds. No decreased breath sounds, wheezing, rhonchi or rales. Chest: Chest wall: No tenderness. Abdominal: General: Bowel sounds are normal. There is no distension. Palpations: Abdomen is soft. Tenderness: There is no abdominal tenderness. Musculoskeletal: General: No tenderness. Normal range of motion. Cervical back: Normal range of motion and neck supple. Right lower leg: No edema. Left lower leg: No edema. Skin: General: Skin is warm and dry. Coloration: Skin is not pale. Findings: No erythema or rash. Nails: There is no clubbing. Neurological: General: No focal deficit present. Mental Status: She is alert and oriented to person, place, and time. Motor: No abnormal muscle tone. Coordination: Coordination normal. Deep Tendon Reflexes: Reflexes are normal and symmetric. Psychiatric: Attention and Perception: Attention and perception normal. Mood and Affect: Mood normal. Speech: Speech normal. Behavior: Behavior normal. Behavior is cooperative. Thought Content: Thought content normal. Cognition and Memory: Cognition and memory normal. Judgment: Judgment normal. Component Latest Ref Rng & Units 05/06/2021 07/03/2021 02/23/2022 Protein, Total 6.3 - 8.0 g/dL 6.8 Albumin 3.9 - 4.9 g/dL 4.3 Calcium 8.5 - 10.2 mg/dL 9.5 9.4 Bilirubin, Total 0.2 - 1.3 mg/dL 1.0 Alkaline Phosphatase 34 - 123 U/L 79 AST 13 - 35 U/L 17 ALT 7 - 38 U/L 15 Glucose 74 - 99 mg/dL 102 (H) 99 BUN 7 - 21 mg/dL 15 14 Creatinine 0.58 - 0.96 mg/dL 0.92 0.99 (H) Sodium 136 - 144 mmol/L 140 139 Potassium 3.7 - 5.1 mmol/L 4.3 4.1 Chloride 97 - 105 mmol/L 105 103 CO2 22 - 30 mmol/L 28 26 Anion Gap 9 - 18 mmol/L 7 (L) 10 eGFR >=60 mL/min/1.73m 75 68 TSH 0.270 - 4.200 mIU/L 5.440 (H) 3.650 3.970 Free T4 0.9 - 1.7 ng/dL 1.1 1.1 ASSESSMENT/PLAN: 1. Wellness examination - ICD9: V70.0, ICD10: Z00.00 (primary diagnosis) - Counseled on healthy diet and regular exercise - Calcium intake with supplements or by diet of 1000 mg/day for under 50, 5739-3353 mg/day for 50+ - Mammogram ordered - exam recommended once yearly - Counseled patient on limiting alcohol intake to 1 drink per day - Depression screening tool completed and reviewed with patient. Based on score and interview, patient is at risk for depression and recommended no further intervention at this time. - Follow up for annual exam in one year 2. Hypothyroidism, unspecified type - ICD9: 244.9, ICD10: E03.9 - most recent TSH normal. - Instructed patient on importance of taking on an empty stomach either first thing in the morning or at bedtime. - continue current dose of Synthroid 0.025 mg - pt has appt with endo. Follow up as scheduled Stable 3. Anxiety - ICD9: 300.00, ICD10: F41.9 - chronic stable - continue celexa 10 mg daily. 4. Palpitations - ICD9: 785.1, ICD10: R00.2 - chronic, episodic. No change in frequency. She had previous work up for this. She voices concerns for occasional HR in the 40s. Reports 2 syncopal events in the past after getting out of bed. Previous stress testing normal. But I do not have results of holter monitor. Discussed holter monitor. Pt would like referral to cardiology to discuss. - ECG COMPLETE 5. Hot flashes due to menopause - ICD9: 627.2, ICD10: N95.1 - episodic. She is currently on estrogen from her [employer] for this. Pt continues with hot flashes despite increase dose of estrogen. She would like to wean off this. We did discuss if needed we can increase her celexa to see if that will help with her menopausal symptoms. Pt reports she will let me know if she wants increase in dosage . 6. Screening for deficiency anemia - ICD9: V78.1, ICD10: Z13.0 - CBC 7. Encounter for screening for diabetes mellitus - ICD9: V77.1, ICD10: Z13.1 - COMP METABOLIC PANEL 8. Screening, lipid - ICD9: V77.91, ICD10: Z13.220 - LIPID PANEL BASIC 9. Encounter for screening mammogram for breast cancer - ICD9: V76.12, ICD10: Z12.31 - GREGORIO SCREENING W AILEEN Larios APRN.SUPPLY CHAIN ANALYST documented in this encounter [facility] 03-17-2022 Miscellaneous Notes Called pt let her know referral was placed Yamilka Freedman MA Pt called wanting to know she can get a referral for Endo for Thyroid Yamilka Freedman MA documented in this encounter [facility] 02-22-2022 Miscellaneous Notes Patient informed of lab orders. Briseyda Rebolledo MA Yes, orders placed. Maria C Ann APRN.CHAYITO Pt called she is currently taking Levothyroxine 25 mcg for her thyroid. Pt is having symptoms that she feels are related to her thyroid. She is noticing an increase in hair loss,Hot flashes,Dry skin and lower heart rate. Pt is wanting to know if an order can be placed to have her thyroid checked. Her previous thyroid check was 07/03/21 Yamilka Freedman MA documented in this encounter [facility] 09-09-2021 Miscellaneous Notes Called pt left VM that form was done and at the front desk representative ready for her to p/u Yamilka Freedman MA Patient stopped by the office and dropped off a medical statement form that she needs filled out by Magdy Larios. Form was placed in Ric folder in front office. Please call patient when ready for pickup. She will let you know if she will pickup or just like it put in the mail Laura Gregg documented in this encounter [facility] 08-30-2021 Miscellaneous Notes Last OV 04/12/21 Apt 09/15/21 Labs 07/03/21 Pharmacy calls in requesting the following refill(s): Pending Prescriptions Disp Refills LEVOTHYROXINE 25 MCG TABLET 90 tablet 1 Sig: TAKE 1 TABLET EVERY DAY MAC: Yes Yamilka Freedman MA documented in this encounter [facility] 07-20-2021 Miscellaneous Notes Called pt left VM with results Yamilka Freedman MA ----- Message from Magdy Larios APRN.SUPPLY CHAIN ANALYST sent at 07/19/2021 9:31 AM EDT ----- Negative mammogram IMPRESSION IMPRESSION: NEGATIVE There is no mammographic evidence of malignancy. A 1 year screening mammogram is recommended. The exam was reviewed by a staff physician. documented in this encounter [facility] 07-16-2021 Miscellaneous Notes July 16, 2021 PID: [id number] Gayle Christian [address] [place] [address] [place] [address] Dear Ms. Christian, We are pleased to inform you that the results of your recent breast imaging exam on 07/15/2021 are normal. Your mammogram demonstrates that you have dense breast tissue, which could hide abnormalities. Dense breast tissue, in and of itself, is a relatively common condition. Therefore, this information is not provided to cause undue concern; rather, it is to raise your awareness and promote discussion with your health care provider regarding the presence of dense breast tissue in addition to other risk factors. Early detection of cancer is very important. We also understand recommendations regarding breast cancer screening are controversial. Please discuss with your primary care provider which strategy is best for you and whether a mammogram is right for you. Your imaging studies and report will be kept on file at [facility] as part of your permanent medical record and are available for your continuing care. Thank you for allowing us to help in meeting your health care needs. Sincerely, Dr. Galindo Interpreting Radiologist [facility] (Normal over 40) documented in this encounter [facility] 07-15-2021 Note HNO ID: [id number] Author: RT Jamel(Joan) Service: Radiology Author Type: Technologist Type: Progress Notes Filed: 07/15/2021 2:28 PM Note Text: Radiology Service Progress Note PATIENT NAME: Gayle Christian DATE OF SERVICE: July 15, 2021 TIME: 2:28 PM PATIENT IDENTITY VERIFICATION COMPLETED USING TWO (2) IDENTIFIERS: Name and Date of confirmed by patient verbally. FALL SCREENING: Has the patient had 2 falls in the last year or 1 fall with injury or currently using an Ambulatory Assistive Device (Walker, Cane, Wheelchair, Crutches, etc.)? No PATIENT GENDER DATA: Female. status: : No status: NO. PATIENT RELEVANT IMPLANT DATA REVIEWED: Not Applicable RADIOLOGY DEPARTMENT: Mammography PERIPHERAL IV DATA: Not applicable SIGNED BY: RT Jamel(R) July 15, 2021 2:28 PM [facility] 07-15-2021 History of Presen t illness Narrative Radiology Service Progress Note PATIENT NAME: Gayle Christian DATE OF SERVICE: July 15, 2021 TIME: 2:28 PM PATIENT IDENTITY VERIFICATION COMPLETED USING TWO (2) IDENTIFIERS: Name and Date of confirmed by patient verbally. FALL SCREENING: Has the patient had 2 falls in the last year or 1 fall with injury or currently using an Ambulatory Assistive Device (Walker, Cane, Wheelchair, Crutches, etc.)? No PATIENT GENDER DATA: Female. status: : No status: NO. PATIENT RELEVANT IMPLANT DATA REVIEWED: Not Applicable RADIOLOGY DEPARTMENT: Mammography PERIPHERAL IV DATA: Not applicable SIGNED BY: RT Jamel(R) July 15, 2021 2:28 PM documented in this encounter [facility] 07-08-2021 Miscellaneous Notes Called pt left VM that she is due for labs Yamilka Freedman MA ----- Message from Yamilka Freedman MA sent at 04/13/2021 8:56 AM EST ----- Recheck Lipid in 3 months Yamilka Freedman MA documented in this encounter [facility] 07-05-2021 Miscellaneous Notes Patient notified and voiced understanding. Clarice Brock MA ----- Message from Sarah Montero APRN.CNP sent at 07/03/2021 4:08 PM EDT ----- All labs are WNL- no change in management documented in this encounter [facility] 06-01-2021 Miscellaneous Notes Pt called stating that the pharmacy wont fill her Levothyroxine called the pharmacy to see what the problem was. The pts ins will not fill more then 1 30 day supply and needs to be a 90 day supply. Per CN gave instructions to Pharmacy to fill a 90 day supply Yamilka Freedman MA documented in this encounter [facility] 05-31-2021 Miscellaneous Notes Pharmacy has valid script. Lindsay Longo MA documented in this encounter [facility] 05-11-2021 Miscellaneous Notes ----- Message from Briseyda Rebolledo MA sent at 05/11/2021 7:22 AM EDT ----- ----- Message ----- From: Yamilka Freedman MA Sent: 05/11/2021 12:00 AM EDT To: Thiago Sotner Clinical Pool CMP unremarkable except creatinine borderline minimally elevated. Recheck in 4 wks. Tsh is also minimally elevated and will recheck this in 4 wks as well with T4. Yamilka Freedman MA documented in this encounter [facility] 12-16-2014 History of Past i llness Narrative Problem Noted Date Resolved Date Pain in left shoulder 12/16/2014 08/22/2022 Rotator cuff syndrome of left shoulder 5 08/22/2022 documented as of this encounter (statuses as of 08/22/2022) [facility] History of Past illness Narrative* Problem Noted Date Resolved Date Pain in left shoulder 12/16/2014 08/22/2022 Rotator cuff syndrome of left shoulder 5 08/22/2022 documented as of this encounter (statuses as of 08/26/2022) [facility] History of Past illness Narrative* Problem Noted Date Diagnosed Date Resolved Date Pain in left shoulder 12/16/20142022 Rotator cuff syndrome of left shoulder 12/16/2014 08/22/2022 documented as of this encounter (statuses as of 10/27/2022) [facility] History of Past illness Narrative* Problem Noted Date Diagnosed Date Resolved Date Pain in left shoulder 12/16/20142022 Rotator cuff syndrome of left shoulder 12/16/2014 08/22/2022 documented as of this encounter (statuses as of 12/12/2022) [facility] History of Past illness Narrative* Problem Noted Date Diagnosed Date Resolved Date Pain in left shoulder 12/16/20142022 Rotator cuff syndrome of left shoulder 12/16/2014 08/22/2022 documented as of this encounter (statuses as of 03/06/2023) [facility] History of Past illness Narrative* Problem Noted Date Diagnosed Date Resolved Date Pain in left shoulder 12/16/20142022 Rotator cuff syndrome of left shoulder 12/16/2014 08/22/2022 documented as of this encounter (statuses as of 05/01/2023) [facility] of Past illness Narrative* Problem Noted Date Diagnosed Date Resolved Date Pain in left shoulder 12/16/20142022 Rotator cuff syndrome of left shoulder 12/16/2014 08/22/2022 documented as of this encounter (statuses as of 05/22/2023) [facility] History of Past illness Narrative* Problem Noted Date Diagnosed Date Resolved Date Pain in left shoulder 12/16/20142022 Rotator cuff syndrome of left shoulder 12/16/2014 08/22/2022 documented as of this encounter (statuses as of 05/23/2023) [facility] note* Diagnosis Hypothyroidism, unspecified type- Primary Elevated serum creatinine Other nonspecific findings on examination of blood documented [facility]* Diagnosis Hypothyroidism, unspecified type [facility] Diagnosis Screening, lipid- Primary Screening for lipoid disorders [facility] Diagnosis Encounter for screening mammogram for breast cancer documented in this encounter [facility]* Diagnosis Hypothyroidism, unspecified type- Primary [facility] Diagnosis Hypothyroidism, unspecified type- Primary documented in this encounter [facility]* Diagnosis Wellness examination- Primary Hypothyroidism, unspecified type Anxiety Anxiety state, unspecified Palpitations Hot flashes due to menopause Screening for deficiency anemia Screening for other and unspecified deficiency anemia Encounter for screening for diabetes mellitus Screening for diabetes mellitus Screening, lipid Screening for lipoid disorders Encounter for screening mammogram for breast cancer documented in this encounter [facility] note* Diagnosis Encounter for screening mammogram for breast cancer documented in this encounter [facility] note* Diagnosis Screening for diabetes mellitus- Primary Anxiety Anxiety state, unspecified Screening cholesterol level Screening for lipoid disorders Screening for deficiency anemia Screening for other and unspecified deficiency anemia documented in this encounter [facility] note* Diagnosis Anxiety Anxiety state, unspecified documented in this encounter [facility] note* Diagnosis Acquired hypothyroidism- Primary Unspecified hypothyroidism Vasomotor symptoms due to menopause Fatigue Other malaise and fatigue documented in this encounter [facility] note* Diagnosis Anxiety Anxiety state, unspecified documented in this encounter [facility] note* Diagnosis Acquired hypothyroidism- Primary Unspecified hypothyroidism Screening for diabetes mellitus Screening cholesterol level Screening for lipoid disorders Screening for deficiency anemia Screening for other and unspecified deficiency anemia documented in this encounter [facility] note* Diagnosis Wellness examination- Primary Anxiety Anxiety state, unspecified Hypothyroidism, unspecified type Encounter for screening mammogram for malignant neoplasm of breast Other screening mammogram Family history of breast cancer Family history of malignant neoplasm of breast documented in this encounter [facility] note* Diagnosis Encounter for screening mammogram for malignant neoplasm of breast Other screening mammogram documented in this encounter [facility] note* Diagnosis Acquired hypothyroidism Unspecified hypothyroidism documented in this encounter [facility] note* Diagnosis Acquired hypothyroidism- Primary Unspecified hypothyroidism Vasomotor symptoms due to menopause documented in this encounter [facility] note* Diagnosis Syncope, unspecified syncope type- Primary Acquired hypothyroidism Unspecified hypothyroidism Palpitations Abnormal electrocardiogram Nonspecific abnormal electrocardiogram (ECG) (EKG) documented in this encounter [facility] note* Diagnosis Family history of breast cancer- Primary Family history of malignant neoplasm of breast documented in this encounter [facility] note* Diagnosis Anxiety Anxiety state, unspecified documented in this encounter [facility] note* Diagnosis Hypothyroidism, unspecified type- Primary Screening for diabetes mellitus Screening cholesterol level Screening for lipoid disorders Screening for deficiency anemia Screening for other and unspecified deficiency anemia Vitamin D deficiency Unspecified vitamin D deficiency documented in this encounter [facility] note* Diagnosis Wellness examination- Primary Anxiety Anxiety state, unspecified Depression, unspecified depression type Acquired hypothyroidism Unspecified hypothyroidism Arthralgia of both hands Wheezing Elevated serum creatinine Other nonspecific findings on examination of blood Encounter for screening mammogram for malignant neoplasm of breast Other screening mammogram Screening for blood or protein in urine Screening for unspecified condition documented in this encounter [facility] note* Diagnosis Elevated serum creatinine- Primary Other nonspecific findings on examination of blood documented in this encounter [facility] note* Diagnosis Sinobronchitis- Primary Unspecified sinusitis (chronic) Acute conjunctivitis of right eye, unspecified acute conjunctivitis type documented in this encounter [facility] note* Diagnosis Encounter for screening mammogram for malignant neoplasm of breast Other screening mammogram documented in this encounter [facility] note* Diagnosis Anxiety Anxiety state, unspecified documented in this encounter [facility] note* Diagnosis Acquired hypothyroidism Unspecified hypothyroidism documented in this encounter [facility] note* Diagnosis Elevated serum creatinine- Primary Other nonspecific findings on examination of blood SOB (shortness of breath) Shortness of breath documented in this encounter [facility] note* Diagnosis SOB (shortness of breath) Shortness of breath documented in this encounter [facility] note* Diagnosis SOB (shortness of breath) Shortness of breath documented in this encounter [facility] note* Diagnosis Elevated serum creatinine Other nonspecific findings on examination of blood documented in this encounter [facility] note* Diagnosis Vasomotor symptoms due to menopause documented in this encounter [facility] note* Diagnosis Perioral dermatitis Rosacea documented in this encounter [facility] for referral (narrative)* Diagnostic Procedure Only (Routine) - Closed Specialty Diagnoses / Procedures Referred By Aaliyah mares Referred To Contact [facility] Diagnoses Encounter for screening mammogram for breast cancer Procedures GREGORIO SCREENING W AILEEN SCREENING DIGITAL BREAST TOMOSYNTHESIS BI SCREENING MAMMOGRAPHY BI 2-VIEW BREAST INC Magdy Leal, ODD 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 DAY WORKER.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 CHAIN ANALYST [address] [place] [address] [facility] [address] [place] [address] Referral ID Status Reason Start Date Expiration Date V isits Requested Visits Authorized [id number] Closed Auto-Generate d Referral 04/12/2021 05/12/2022 1 1 [facility] for referral (narrative)* Diagnostic Procedure Only (Routine) - Closed Specialty Diagnoses / Procedures Referred By Contac t Referred To Contact [facility] Diagnoses Encounter for screening mammogram for breast cancer Procedures GREGORIO SCREENING W AILEEN SCREENING DIGITAL BREAST TOMOSYNTHESIS BI SCREENING MAMMOGRAPHY BI 2-VIEW BREAST INC CAD Magdy Larios ODD JOBS DAY WORKER.SUPPLY CHAIN ANALYST [address] [place] [address] [facility] [address] [place] [address] Referral ID Status Reason Start Date Expiration Date V isits Requested Visits Authorized [id number] Closed Auto-Generate d Referral 04/21/2022 05/21/2023 1 1 [facility] for visit Narrative* Diagnostic Procedure Only (Routine) - Closed Specialty Diagnoses / Procedures Referred By Contac t Referred To Contact [facility] Diagnoses Encounter for screening mammogram for breast cancer Procedures GREGORIO SCREENING W AILEEN SCREENING DIGITAL BREAST TOMOSYNTHESIS BI SCREENING MAMMOGRAPHY BI 2-VIEW BREAST INC CAD Magdy Larios ODD JOBS DAY WORKER.SUPPLY CHAIN ANALYST [address] [place] [address] [facility] [address] [place] [address] Referral ID Status Reason Start Date Expiration Date V isits Requested Visits Authorized [id number] Closed Auto-Generate d Referral 04/12/2021 05/12/2022 1 1 [facility] for visit Narrative* Diagnostic Procedure Only (Routine) - Closed Specialty Diagnoses / Procedures Referred By Contac t Referred To Contact [facility] Diagnoses Encounter for screening mammogram for breast cancer Procedures GREGORIO SCREENING W AILEEN SCREENING DIGITAL BREAST TOMOSYNTHESIS BI SCREENING MAMMOGRAPHY BI 2-VIEW BREAST INC CAD Magdy Larios ODD JOBS DAY WORKER.SUPPLY CHAIN ANALYST [address] [place] [address] [facility] [address] [place] [address] Referral ID Status Reason Start Date Expiration Date V isits Requested Visits Authorized [id number] Closed Auto-Generate d Referral 04/21/2022 05/21/2023 1 1 [facility] for visit Narrative* Diagnostic Procedure Only (Routine) - Closed Specialty Diagnoses / Procedures Referred By Contac t Referred To Contact [facility] Diagnoses Encounter for screening mammogram for malignant neoplasm of breast Procedures GREGORIO SCREENING W AILEEN SCREENING DIGITAL BREAST TOMOSYNTHESIS BI SCREENING MAMMOGRAPHY BI 2-VIEW BREAST INC CAD Magdy Larios, ODD JOBS DAY WORKER.SUPPLY CHAIN ANALYST [address] [place] [address] [facility] [address] [place] [address] Referral ID Status Reason Start Date Expiration Date V isits Requested Visits Authorized [id number] Closed Auto-Generate d Referral 05/23/2023 06/21/2024 1 1 [facility] for visit Narrative* Diagnostic Procedure Only (Routine) - Closed Specialty Diagnoses / Procedures Referred By Contac t Referred To Contact [facility] Diagnoses Encounter for screening mammogram for malignant neoplasm of breast Procedures GREGORIO SCREENING W AILEEN SCREENING DIGITAL BREAST TOMOSYNTHESIS BI SCREENING MAMMOGRAPHY BI 2-VIEW BREAST INC CAD Magdy Larios, ODD JOBS DAY WORKER.SUPPLY CHAIN ANALYST [address] [place] [address] Phone: tel: fax: [facility] [address] [place] [address] Referral ID Status Reason Start Date Expiration Date V isits Requested Visits Authorized [id number] Closed Auto-Generate d Referral 06/10/2024 07/10/2025 1 1 [facility] for visit Narrative* Diagnostic Procedure Only (Routine) - Closed Specialty Diagnoses / Procedures Referred By Contac t Referred To Contact [facility] Diagnoses Elevated serum creatinine Procedures US KIDNEY/BLADDER US RETROPERITONEAL REAL TIME W/IMAGE COMPLETE Magdy Larios, ODD JOBS DAY WORKER.SUPPLY CHAIN ANALYST [address] [place] [address] Phone: tel: fax: [place] [address] Referral ID Status Reason Start Date Expiration Date V isits Requested Visits Authorized [id number] Closed Auto-Generate d Referral 09/16/2024 10/16/2025 1 1 [facility] Summary Purpose Family History No Family History Records FoundNo Family History Records FoundNo Family History Records FoundNo Family History Records FoundNo Family History Records Found Advance Directives No Advanced Directives Records FoundDocuments on File Type Date Recorded 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 Expl 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 Advance Directive(s) 08/17/2018 10:39 AM Documents on File Type Date Recorded 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 Expl anation Advance Directive(s) 08/17/2018 10:39 AM Reason for Referral Specialty Diagnoses / Procedures Referred By Contac t Referred To Contact Endocrinology Diagnoses Hypothyroidism, unspecified type Procedures CONSULT TO ENDOCRINOLOGY OFFICE/OUTPATIENT [facility] 60-74 MINUTES Magdy Larios, ODD JOBS DAY WORKER.SUPPLY CHAIN ANALYST [address] [place] [address] Referral ID Status Reason Start Date Expiration Date Visits Requested Visits Authorized [id number] Authorized PCP Requested Referral 03/16/2022 03/16/2023 1 1 Specialty Diagnoses / Procedures Referred By Contac t Referred To Contact Cardiology / CARDIOLOGY Diagnoses Palpitations Procedures CONSULT TO CARDIOLOGY OFFICE/OUTPATIENT [facility] 60-74 MINUTES Magdy Larios, ODD JOBS DAY WORKER.SUPPLY CHAIN ANALYST [address] [place] [address] Nicola Barillas MD [address] [place] [address] Referral ID Status Reason Start Date Expiration Date Visits Requested Visits Authorized [id number] Authorized PCP Requested Referral 04/21/2022 04/21/2023 1 1 Specialty Diagnoses / Procedures Referred By Contac t Referred To Contact [facility] Diagnoses Encounter for screening mammogram for breast cancer Procedures GREGORIO SCREENING W AILEEN SCREENING DIGITAL BREAST TOMOSYNTHESIS BI SCREENING MAMMOGRAPHY BI 2-VIEW BREAST INC CAD Magdy Larios, ODD JOBS DAY WORKER.SUPPLY CHAIN ANALYST [address] [place] [address] [facility] [address] [place] [address] Referral ID Status Reason Start Date Expiration Date Visits Requested Visits Authorized [id number] Pending Review Auto-Generat ed Referral 04/21/2022 05/21/2023 1 1 Specialty Diagnoses / Procedures Referred By Contac t Referred [facility] Diagnoses Palpitations Procedures ECG COMPLETE ECG ROUTINE ECG W/LEAST 12 LDS W/I&R Magdy Larios, ODD JOBS DAY WORKER.SUPPLY CHAIN ANALYST [address] [place] [address] [facility] [address] [place] [address] Referral ID Status Reason Start Date Expiration Date Visits Requested Visits Authorized [id number] Pending Review Auto-Generat ed Referral 04/21/2022 04/21/2023 1 1 Specialty Diagnoses / Procedures Referred By Contac t Referred To Contact Diagnoses Family history of breast cancer Procedures CONSULT TO MEDICAL GENETICS - CANCER MEDICAL GENETICS COUNSELING EACH 30 MINUTES Magdy Larios, ODD JOBS DAY WORKER.[address] [address] [facility] [address] [address] Referral ID Status Reason Start Date Expiration Date Visits Requested Visits Authorized [id number] Pending Review PCP Requested Referral Auto-Generate d Referral 05/23/2023 05/22/2024 1 1 Specialty Diagnoses / Procedures Referred By Contac t Referred To Contact [facility] Diagnoses Encounter for screening mammogram for malignant neoplasm of breast Procedures GREGORIO SCREENING W AILEEN SCREENING DIGITAL BREAST TOMOSYNTHESIS BI SCREENING MAMMOGRAPHY BI 2-VIEW BREAST INC CAD Magdy Larios, ODD JOBS DAY WORKER.SUPPLY CHAIN ANALYST [address] [place] [address] [facility] [address] [place] [address] Referral ID Status Reason Start Date Expiration Date Visits Requested Visits Authorized [id number] Pending Review Auto-Generat ed Referral 05/23/2023 06/21/2024 1 1 Specialty Diagnoses / Procedures Referred By Contac t Referred To Contact CT [facility] Diagnoses Abnormal electrocardiogram Procedures CT CALCIUM SCORING SELF PAY UNLISTED COMPUTED TOMOGRAPHY PROCEDURE Nicola Barillas MD [address] [place] [address] [place] [address] Referral ID Status Reason Start Date Expiration Date Visits Requested Visits Authorized [id number] New Request Auto-Generat ed Referral 4 03/01/2025 1 1 Additional Source Comments INFORMATION SOURCE (unrecogn ized section and content) DATE CREATED AUTHOR 01/30/2020 [facility] DATE CREATED AUTHOR AUTHOR'S ORGANIZ ATION 07/17/2021 [facility] DATE CREATED AUTHOR AUTHOR'S ORGANIZ ATION 10/15/2024 [facility] DATE CREATED AUTHOR AUTHOR'S ORGANIZ ATION 10/28/2024 [facility] DATE CREATED AUTHOR AUTHOR'S ORGANIZ ATION 11/02/2024 [facility] Source Comments (unrecognize d section and content) In the event this informatio n is protected by the Federal Confidentiality of Alcohol and Drug Abuse Patient Records regulations: The Federal rules restrict any use of the information to criminally investigate or prosecute any alcohol or drug abuse patient.[facility] the event this information is protected by the Federal Confidentiality of Alcohol and Drug Abuse Patient Records regulations: The Federal rules restrict any use of the information to criminally investigate or prosecute any alcohol or drug abuse patient.[facility] Center[facility] the event this information is protected by the Federal Confidentiality of Alcohol and Drug Abuse Patient Records regulations: The Federal rules restrict any use of the information to criminally investigate or prosecute any alcohol or drug abuse patient.[facility] Center[facility] the event this information is protected by the Federal Confidentiality of Alcohol and Drug Abuse Patient Records regulations: The Federal rules restrict any use of the information to criminally investigate or prosecute any alcohol or drug abuse patient.[facility] CenterIn the event this information is protected by the Federal Confidentiality of Alcohol and Drug Abuse Patient Records regulations: The Federal rules restrict any use of the information to criminally investigate or prosecute any alcohol or drug abuse patient.[facility] CenterIn the event this information is protected by the Federal Confidentiality of Alcohol and Drug Abuse Patient Records regulations: The Federal rules restrict any use of the information to criminally investigate or prosecute any alcohol or drug abuse patient.[facility] CenterIn the event this information is protected by the Federal Confidentiality of Alcohol and Drug Abuse Patient Records regulations: The Federal rules restrict any use of the information to criminally investigate or prosecute any alcohol or drug abuse patient.[facility] CenterIn the event this information is protected by the Federal Confidentiality of Alcohol and Drug Abuse Patient Records regulations: The Federal rules restrict any use of the information to criminally investigate or prosecute any alcohol or drug abuse patient.[facility] CenterIn the event this information is protected by the Federal Confidentiality of Alcohol and Drug Abuse Patient Records regulations: The Federal rules restrict any use of the information to criminally investigate or prosecute any alcohol or drug abuse patient.[facility] CenterIn the event this information is protected by the Federal Confidentiality of Alcohol and Drug Abuse Patient Records regulations: The Federal rules restrict any use of the information to criminally investigate or prosecute any alcohol or drug abuse patient.[facility] CenterIn the event this information is protected by the Federal Confidentiality of Alcohol and Drug Abuse Patient Records regulations: The Federal rules restrict any use of the information to criminally investigate or prosecute any alcohol or drug abuse patient.[facility] CenterIn the event this information is protected by the Federal Confidentiality of Alcohol and Drug Abuse Patient Records regulations: The Federal rules restrict any use of the information to criminally investigate or prosecute any alcohol or drug abuse patient.[facility] CenterIn the event this information is protected by the Federal Confidentiality of Alcohol and Drug Abuse Patient Records regulations: The Federal rules restrict any use of the information to criminally investigate or prosecute any alcohol or drug abuse patient.[facility] CenterIn the event this information is protected by the Federal Confidentiality of Alcohol and Drug Abuse Patient Records regulations: The Federal rules restrict any use of the information to criminally investigate or prosecute any alcohol or drug abuse patient.[facility] CenterIn the event this information is protected by the Federal Confidentiality of Alcohol and Drug Abuse Patient Records regulations: The Federal rules restrict any use of the information to criminally investigate or prosecute any alcohol or drug abuse patient.[facility] CenterIn the event this information is protected by the Federal Confidentiality of Alcohol and Drug Abuse Patient Records regulations: The Federal rules restrict any use of the information to criminally investigate or prosecute any alcohol or drug abuse patient.[facility] CenterIn the event this information is protected by the Federal Confidentiality of Alcohol and Drug Abuse Patient Records regulations: The Federal rules restrict any use of the information to criminally investigate or prosecute any alcohol or drug abuse patient.[facility] CenterIn the event this information is protected by the Federal Confidentiality of Alcohol and Drug Abuse Patient Records regulations: The Federal rules restrict any use of the information to criminally investigate or prosecute any alcohol or drug abuse patient.[facility] CenterIn the event this information is protected by the Federal Confidentiality of Alcohol and Drug Abuse Patient Records regulations: The Federal rules restrict any use of the information to criminally investigate or prosecute any alcohol or drug abuse patient.[facility] CenterIn the event this information is protected by the Federal Confidentiality of Alcohol and Drug Abuse Patient Records regulations: The Federal rules restrict any use of the information to criminally investigate or prosecute any alcohol or drug abuse patient.[facility] CenterIn the event this information is protected by the Federal Confidentiality of Alcohol and Drug Abuse Patient Records regulations: The Federal rules restrict any use of the information to criminally investigate or prosecute any alcohol or drug abuse patient.[facility] CenterIn the event this information is protected by the Federal Confidentiality of Alcohol and Drug Abuse Patient Records regulations: The Federal rules restrict any use of the information to criminally investigate or prosecute any alcohol or drug abuse patient.[facility] CenterIn the event this information is protected by the Federal Confidentiality of Alcohol and Drug Abuse Patient Records regulations: The Federal rules restrict any use of the information to criminally investigate or prosecute any alcohol or drug abuse patient.[facility] CenterIn the event this information is protected by the Federal Confidentiality of Alcohol and Drug Abuse Patient Records regulations: The Federal rules restrict any use of the information to criminally investigate or prosecute any alcohol or drug abuse patient.[facility] CenterIn the event this information is protected by the Federal Confidentiality of Alcohol and Drug Abuse Patient Records regulations: The Federal rules restrict any use of the information to criminally investigate or prosecute any alcohol or drug abuse patient.[facility] CenterIn the event this information is protected by the Federal Confidentiality of Alcohol and Drug Abuse Patient Records regulations: The Federal rules restrict any use of the information to criminally investigate or prosecute any alcohol or drug abuse patient.[facility] CenterIn the event this information is protected by the Federal Confidentiality of Alcohol and Drug Abuse Patient Records regulations: The Federal rules restrict any use of the information to criminally investigate or prosecute any alcohol or drug abuse patient.[facility] CenterIn the event this information is protected by the Federal Confidentiality of Alcohol and Drug Abuse Patient Records regulations: The Federal rules restrict any use of the information to criminally investigate or prosecute any alcohol or drug abuse patient.[facility] CenterIn the event this information is protected by the Federal Confidentiality of Alcohol and Drug Abuse Patient Records regulations: The Federal rules restrict any use of the information to criminally investigate or prosecute any alcohol or drug abuse patient.[facility] CenterIn the event this information is protected by the Federal Confidentiality of Alcohol and Drug Abuse Patient Records regulations: The Federal rules restrict any use of the information to criminally investigate or prosecute any alcohol or drug abuse patient.[facility] CenterIn the event this information is protected by the Federal Confidentiality of Alcohol and Drug Abuse Patient Records regulations: The Federal rules restrict any use of the information to criminally investigate or prosecute any alcohol or drug abuse patient.[facility] CenterIn the event this information is protected by the Federal Confidentiality of Alcohol and Drug Abuse Patient Records regulations: The Federal rules restrict any use of the information to criminally investigate or prosecute any alcohol or drug abuse patient.[facility] CenterIn the event this information is protected by the Federal Confidentiality of Alcohol and Drug Abuse Patient Records regulations: The Federal rules restrict any use of the information to criminally investigate or prosecute any alcohol or drug abuse patient.[facility] CenterIn the event this information is protected by the Federal Confidentiality of Alcohol and Drug Abuse Patient Records regulations: The Federal rules restrict any use of the information to criminally investigate or prosecute any alcohol or drug abuse patient.[facility] CenterIn the event this information is protected by the Federal Confidentiality of Alcohol and Drug Abuse Patient Records regulations: The Federal rules restrict any use of the information to criminally investigate or prosecute any alcohol or drug abuse patient.[facility] CenterIn the event this information is protected by the Federal Confidentiality of Alcohol and Drug Abuse Patient Records regulations: The Federal rules restrict any use of the information to criminally investigate or prosecute any alcohol or drug abuse patient.[facility] CenterIn the event this information is protected by the Federal Confidentiality of Alcohol and Drug Abuse Patient Records regulations: The Federal rules restrict any use of the information to criminally investigate or prosecute any alcohol or drug abuse patient.[facility] CenterIn the event this information is protected by the Federal Confidentiality of Alcohol and Drug Abuse Patient Records regulations: The Federal rules restrict any use of the information to criminally investigate or prosecute any alcohol or drug abuse patient.[facility] CenterIn the event this information is protected by the Federal Confidentiality of Alcohol and Drug Abuse Patient Records regulations: The Federal rules restrict any use of the information to criminally investigate or prosecute any alcohol or drug abuse patient.[facility] CenterIn the event this information is protected by the Federal Confidentiality of Alcohol and Drug Abuse Patient Records regulations: The Federal rules restrict any use of the information to criminally investigate or prosecute any alcohol or drug abuse patient.[facility] CenterIn the event this information is protected by the Federal Confidentiality of Alcohol and Drug Abuse Patient Records regulations: The Federal rules restrict any use of the information to criminally investigate or prosecute any alcohol or drug abuse patient.[facility] CenterIn the event this information is protected by the Federal Confidentiality of Alcohol and Drug Abuse Patient Records regulations: The Federal rules restrict any use of the information to criminally investigate or prosecute any alcohol or drug abuse patient.[facility] CenterIn the event this information is protected by the Federal Confidentiality of Alcohol and Drug Abuse Patient Records regulations: The Federal rules restrict any use of the information to criminally investigate or prosecute any alcohol or drug abuse patient.[facility] CenterIn the event this information is protected by the Federal Confidentiality of Alcohol and Drug Abuse Patient Records regulations: The Federal rules restrict any use of the information to criminally investigate or prosecute any alcohol or drug abuse patient.[facility] CenterIn the event this information is protected by the Federal Confidentiality of Alcohol and Drug Abuse Patient Records regulations: The Federal rules restrict any use of the information to criminally investigate or prosecute any alcohol or drug abuse patient.[facility] CenterIn the event this information is protected by the Federal Confidentiality of Alcohol and Drug Abuse Patient Records regulations: The Federal rules restrict any use of the information to criminally investigate or prosecute any alcohol or drug abuse patient.[facility] CenterIn the event this information is protected by the Federal Confidentiality of Alcohol and Drug Abuse Patient Records regulations: The Federal rules restrict any use of the information to criminally investigate or prosecute any alcohol or drug abuse patient.[facility] CenterIn the event this information is protected by the Federal Confidentiality of Alcohol and Drug Abuse Patient Records regulations: The Federal rules restrict any use of the information to criminally investigate or prosecute any alcohol or drug abuse patient.[facility] Center[facility] the event this information is protected by the Federal Confidentiality of Alcohol and Drug Abuse Patient Records regulations: The Federal rules restrict any use of the information to criminally investigate or prosecute any alcohol or drug abuse patient.[facility] Center[facility] the event this information is protected by the Federal Confidentiality of Alcohol and Drug Abuse Patient Records regulations: The Federal rules restrict any use of the information to criminally investigate or prosecute any alcohol or drug abuse patient.[facility] Center[facility] the event this information is protected by the Federal Confidentiality of Alcohol and Drug Abuse Patient Records regulations: The Federal rules restrict any use of the information to criminally investigate or prosecute any alcohol or drug abuse patient.[facility] CenterIn the event this information is protected by the Federal Confidentiality of Alcohol and Drug Abuse Patient Records regulations: The Federal rules restrict any use of the information to criminally investigate or prosecute any alcohol or drug abuse patient.[facility] CenterIn the event this information is protected by the Federal Confidentiality of Alcohol and Drug Abuse Patient Records regulations: The Federal rules restrict any use of the information to criminally investigate or prosecute any alcohol or drug abuse patient.[facility] CenterIn the event this information is protected by the Federal Confidentiality of Alcohol and Drug Abuse Patient Records regulations: The Federal rules restrict any use of the information to criminally investigate or prosecute any alcohol or drug abuse patient.[facility] CenterIn the event this information is protected by the Federal Confidentiality of Alcohol and Drug Abuse Patient Records regulations: The Federal rules restrict any use of the information to criminally investigate or prosecute any alcohol or drug abuse patient.[facility] CenterIn the event this information is protected by the Federal Confidentiality of Alcohol and Drug Abuse Patient Records regulations: The Federal rules restrict any use of the information to criminally investigate or prosecute any alcohol or drug abuse patient.[facility] CenterIn the event this information is protected by the Federal Confidentiality of Alcohol and Drug Abuse Patient Records regulations: The Federal rules restrict any use of the information to criminally investigate or prosecute any alcohol or drug abuse patient.[facility] CenterIn the event this information is protected by the Federal Confidentiality of Alcohol and Drug Abuse Patient Records regulations: The Federal rules restrict any use of the information to criminally investigate or prosecute any alcohol or drug abuse patient.[facility] CenterIn the event this information is protected by the Federal Confidentiality of Alcohol and Drug Abuse Patient Records regulations: The Federal rules restrict any use of the information to criminally investigate or prosecute any alcohol or drug abuse patient.[facility] Reason for Visit (unrecogniz ed section and content) Reason Comments Orders Reason Comments Refill Request Reason Comments Medication Problem Reason Comments Results Reason Comments Medical Statement Form Reason Comments Patient Question Reason Comments Referral Request Reason Comments Well Adult Reason Comments New Patient Appointment Reason Comments Referral Request Cardiology referral update- Curriculum And Assessment Coordinator - Other Orders Reason Comments Consult Reason Comments Appointment Reschedule f/u appt. Reason Comments Results mammogram Reason Comments Follow Up Reason Comments CARD Follow Up [facility] Specialty Diagnoses / Procedures Referred By Contac t Referred To Contact Diagnoses Family history of breast cancer Procedures CONSULT TO MEDICAL GENETICS - CANCER MEDICAL GENETICS COUNSELING EACH 30 MINUTES Magdy Larios, ODD JOBS DAY WORKER.SUPPLY CHAIN ANALYST [address] [place] [address] [address] Referral ID Status Reason Start Date Expiration Date Visits Requested Visits Authorized [id number] Pending Review PCP Requested Referral Auto-Generate d Referral 05/23/2023 05/22/2024 1 1 Reason Comments Well Adult Pt has c/o joints ac damien and feeling fatigued. Starting around Reason Comments Lab Orders Reason Comments Chest Congestion A lot of coughing an d congestion, has been 2 weeks Reason Onset Date Comments Results 07/23/2024 Reason Onset Date Comments Results 06/10/2024 Reason Comments Urinary Problem Pelvic pain Reason Comments Procedure Specialty Diagnoses / Procedures Referred By Contac t Referred To Contact [facility] Diagnoses SOB (shortness of breath) Procedures SPIROMETRY - BASELINE AND POST DILATOR BRNCDILAT RSPSE SPMTRY PRE&POST-BRNCDILAT ADMN Magdy Larios, ODD JOBS DAY WORKER.SUPPLY CHAIN ANALYST [address] [place] [address] Phone: tel: fax: Res[facility] [address] [address] Referral ID Status Reason Start Date Expiration Date V isits Requested Visits Authorized [id number] Closed Auto-Generate d Referral 09/16/2024 10/16/2025 1 1 Specialty Diagnoses / Procedures Referred By Contac t Referred To [facility] Diagnoses SOB (shortness of breath) Procedures LUNG DIFFUSION CAPACITY (DLCO) DIFFUSING CAPACITY Magdy Larios, ODD JOBS DAY WORKER.SUPPLY CHAIN ANALYST [address] [place] [address] Phone: tel: fax: Res[facility] [address] [address] Referral ID Status Reason Start Date Expiration Date V isits Requested Visits Authorized [id number] Closed Auto-Generate d Referral 09/16/2024 10/16/2025 1 1 Specialty Diagnoses / Procedures Referred By Contac t Referred To Contact [facility] Diagnoses SOB (shortness of breath) Procedures LUNG VOLUMES PLETHYSMOGRAPHY LUNG VOLUMES W/WO AIRWAY RESIST Magdy Larios, ODD JOBS DAY WORKER.SUPPLY CHAIN ANALYST [address] [place] [address] Phone: tel: fax: [facility] [place] [address] Referral ID Status Reason Start Date Expiration Date V isits Requested Visits Authorized [id number] Closed Auto-Generate d Referral 02/21/2024 02/19/2025 1 1 Reason Comments Scheduling Coronary Calcium sco ring Reason Onset Date Comments Results 09/16/2024 Reason Comments Infection Patient concerned jac castro has a face infection. She has had this before. She gets a few sores and she was hiking in but about a week ago on steroid. Her face cleared. Once she stopped med it came back. Care Teams (unrecognized sec tion and content) Director Of Cardiac Cath Lab Relationship Specialty Start Date End Date Magdy Larios, ODD JOBS DAY WORKER.SUPPLY CHAIN ANALYST [address] [place] [address] PCP - General Internal Medicine 07/18/17 Director Of Cardiac Cath Lab Relationship Specialty Start Date End Date Magdy Larios, ODD JOBS DAY WORKER.SUPPLY CHAIN ANALYST [address] [place] [address] PCP - General Internal Medicine 07/18/17 Director Of Cardiac Cath Lab Relationship Specialty Start Date End Date Magdy Larios, ODD JOBS DAY WORKER.SUPPLY CHAIN ANALYST [address] [place] [address] PCP - General Internal Medicine 07/18/17 Director Of Cardiac Cath Lab Relationship Specialty Start Date End Date Magdy Larios, ODD JOBS DAY WORKER.SUPPLY CHAIN ANALYST [address] [place] [address] PCP - General Internal Medicine 07/18/17 Director Of Cardiac Cath Lab Relationship Specialty Start Date End Date Magdy Larios, ODD JOBS DAY WORKER.SUPPLY CHAIN ANALYST [address] [place] [address] PCP - General Internal Medicine 07/18/17 Director Of Cardiac Cath Lab Relationship Specialty Start Date End Date Magdy Larios, ODD JOBS DAY WORKER.SUPPLY CHAIN ANALYST [address] [place] [address] PCP - General Internal Medicine 07/18/17 Director Of Cardiac Cath Lab Relationship Specialty Start Date End Date Magdy Larios, ODD JOBS DAY WORKER.SUPPLY CHAIN ANALYST [address] [place] [address] PCP - General Internal Medicine 07/18/17 Director Of Cardiac Cath Lab Relationship Specialty Start Date End Date Magdy Larios, ODD JOBS DAY WORKER.SUPPLY CHAIN ANALYST [address] [place] [address] PCP - General Internal Medicine 07/18/17 Director Of Cardiac Cath Lab Relationship Specialty Start Date End Date Magdy Larios ODD JOBS DAY WORKER.SUPPLY CHAIN ANALYST [address] [place] [address] PCP - General Internal Medicine 07/18/17 Director Of Cardiac Cath Lab Relationship Specialty Start Date End Date Magdy Larios, ODD JOBS DAY WORKER.SUPPLY CHAIN ANALYST [address] [place] [address] PCP - General Internal Medicine 07/18/17 Deo hZao, DO [address] [place] [address] Obstetrics 04/21/22 Director Of Cardiac Cath Lab Relationship Specialty Start Date End Date Magdy Larios, ODD JOBS DAY WORKER.SUPPLY CHAIN ANALYST [address] [place] [address] PCP - General Internal Medicine 07/18/17 Deo Zhao, DO [address] [place] [address] Obstetrics 04/21/22 Director Of Cardiac Cath Lab Relationship Specialty Start Date End Date Magdy Larios, ODD JOBS DAY WORKER.SUPPLY CHAIN ANALYST [address] [place] [address] PCP - General Internal Medicine 07/18/17 Deo Zhao, DO [address] [place] [address] Obstetrics 04/21/22 Director Of Cardiac Cath Lab Relationship Specialty Start Date End Date Magdy Larios, ODD JOBS DAY WORKER.SUPPLY CHAIN ANALYST [address] [place] [address] PCP - General Internal Medicine 07/18/17 Deo Zhao, DO [address] [place] [address] Obstetrics 04/21/22 Director Of Cardiac Cath Lab Relationship Specialty Start Date End Date Magdy Larios, ODD JOBS DAY WORKER.SUPPLY CHAIN ANALYST [address] [place] [address] PCP - General Internal Medicine 07/18/17 Deo Zhao, DO [address] [place] [address] Obstetrics 04/21/22 Director Of Cardiac Cath Lab Relationship Specialty Start Date End Date Magdy Larios, ODD JOBS DAY WORKER.SUPPLY CHAIN ANALYST [address] [place] [address] PCP - General Internal Medicine 07/18/17 Deo Zhao, DO [address] [facility] [address] Obstetrics 04/21/22 Director Of Cardiac Cath Lab Relationship Specialty Start Date End Date Magdy Larios, ODD JOBS DAY WORKER.SUPPLY CHAIN ANALYST [address] [place] [address] PCP - General Internal Medicine 07/18/17 Deo Zhao, DO [address] [place] [address] Obstetrics 04/21/22 Director Of Cardiac Cath Lab Relationship Specialty Start Date End Date Magdy Larios, ODD JOBS DAY WORKER.SUPPLY CHAIN ANALYST [address] [place], [place] [id number] PCP - General Internal Medicine 07/18/17 Deo Zhao, DO [address] [place] [address] Obstetrics 04/21/22 Director Of Cardiac Cath Lab Relationship Specialty Start Date End Date Magdy Larios, ODD JOBS DAY WORKER.SUPPLY CHAIN ANALYST [address] [place] [address] PCP - General Internal Medicine 07/18/17 Deo Zhao, [address] [place] [address] Obstetrics 04/21/22 Director Of Cardiac Cath Lab Relationship Specialty Start Date End Date Magdy Larios, ODD JOBS DAY WORKER.SUPPLY CHAIN ANALYST [address] [place], [place] [id number] PCP - General Internal Medicine 07/18/17 Deo Zhao, [address] [place] [address] Obstetrics 04/21/22 Director Of Cardiac Cath Lab Relationship Specialty Start Date End Date Magdy Larios ODD JOBS DAY WORKER.SUPPLY CHAIN ANALYST [address] [place], [place] [id number] PCP - General Internal Medicine 07/18/17 Deo Zhao, [address] [place] [address] Obstetrics 04/21/22 Director Of Cardiac Cath Lab Relationship Specialty Start Date End Date Magdy Larios ODD JOBS DAY WORKER.SUPPLY CHAIN ANALYST [address] [place] [id number] PCP - General Internal Medicine 07/18/17 Deo Zhao DO [address] [place] [address] Obstetrics 04/21/22 Director Of Cardiac Cath Lab Relationship Specialty Start Date End Date Magdy Larios, ODD JOBS DAY WORKER.SUPPLY CHAIN ANALYST [address] [place] [address] PCP - General Internal Medicine 07/18/17 Deo Zhao DO [address] [place] [address] Obstetrics 04/21/22 Director Of Cardiac Cath Lab Relationship Specialty Start Date End Date Magdy Larios, ODD JOBS DAY WORKER.SUPPLY CHAIN ANALYST [address] [place] [address] PCP - General Internal Medicine 07/18/17 Deo Zhao DO [address] [place] [address] Obstetrics 04/21/22 Director Of Cardiac Cath Lab Relationship Specialty Start Date End Date Magdy Larios, ODD JOBS DAY WORKER.SUPPLY CHAIN ANALYST [address] [place] [address] PCP - General Internal Medicine 07/18/17 Deo Zhao DO [address] [place] [address] Obstetrics 04/21/22 Director Of Cardiac Cath Lab Relationship Specialty Start Date End Date Magdy Larios APRN.SUPPLY CHAIN ANALYST [address] [place] [address] PCP - General Internal Medicine 07/18/17 Deo Zhao, [address] [place] [address] Obstetrics 04/21/22 Director Of Cardiac Cath Lab Relationship Specialty Start Date End Date Magdy Larios ODD JOBS DAY WORKER.SUPPLY CHAIN ANALYST [address] [place] [address] PCP - General Internal Medicine 07/18/17 Deo Zhao DO [address] [place] [address] Obstetrics 04/21/22 Director Of Cardiac Cath Lab Relationship Specialty Start Date End Date Magdy Larios, ODD JOBS DAY WORKER.SUPPLY CHAIN ANALYST [address] [place] [address] PCP - General Internal Medicine 07/18/17 Deo Zhao, [address] [place] [phone] Obstetrics 04/21/22 Director Of Cardiac Cath Lab Relationship Specialty Start Date End Date Magdy Larios, ODD JOBS DAY WORKER.SUPPLY CHAIN ANALYST [address] [place] [address] [place] [address] PCP - General Internal Medicine 07/18/17 Deo Zhao DO [address] [place] [address] Obstetrics 04/21/22 Director Of Cardiac Cath Lab Relationship Specialty Start Date End Date Magdy Larios, ODD JOBS DAY WORKER.SUPPLY CHAIN ANALYST [address] [facility], [place] [id number] PCP - General Internal Medicine 07/18/17 Deo Zhao, DO [address] [place] [address] Obstetrics 04/21/22 Director Of Cardiac Cath Lab Relationship Specialty Start Date End Date Magdy Larios, ODD JOBS DAY WORKER.SUPPLY CHAIN ANALYST [address] [place] [address] PCP - General Internal Medicine 07/18/17 Deo Zhao, DO [address] [place] [address] Obstetrics 04/21/22 Director Of Cardiac Cath Lab Relationship Specialty Start Date End Date Magdy Larios, ODD JOBS DAY WORKER.SUPPLY CHAIN ANALYST [address] [place] [address] PCP - General Internal Medicine 07/18/17 Deo Zhao, DO [address] [place] [phone] Obstetrics 04/21/22 Director Of Cardiac Cath Lab Relationship Specialty Start Date End Date Magdy Larios, ODD JOBS DAY WORKER.SUPPLY CHAIN ANALYST [address] [place] [address] PCP - General Internal Medicine 07/18/17 Deo Zhao, [address] [place] [address] Obstetrics 04/21/22 Director Of Cardiac Cath Lab Relationship Specialty Start Date End Date Magdy Larios, ODD JOBS DAY WORKER.SUPPLY CHAIN ANALYST [address] [place] [address] PCP - General Internal Medicine 07/18/17 Deo Zhao, [address] [place] [address] Obstetrics 04/21/22 Director Of Cardiac Cath Lab Relationship Specialty Start Date End Date Magdy Larios, ODD JOBS DAY WORKER.SUPPLY CHAIN ANALYST [address] [place] [address] PCP - General Internal Medicine 07/18/17 Deo Zhao, [address] [place] [address] Obstetrics 04/21/22 Director Of Cardiac Cath Lab Relationship Specialty Start Date End Date Magdy Larios, ODD JOBS DAY WORKER.SUPPLY CHAIN ANALYST [address] [place] [address] PCP - General Internal Medicine 07/18/17 Deo Zhao, [address] [place] [phone] Obstetrics 04/21/22 Director Of Cardiac Cath Lab Relationship Specialty Start Date End Date Magdy Larios, ODD JOBS DAY WORKER.SUPPLY CHAIN ANALYST [address] [place] [address] PCP - General Internal Medicine 07/18/17 Deo Zhao, [address] [place] [address] Obstetrics 04/21/22 Director Of Cardiac Cath Lab Relationship Specialty Start Date End Date Magdy Larios, ODD JOBS DAY WORKER.SUPPLY CHAIN ANALYST [address] [place] [address] PCP - General Internal Medicine 07/18/17 Deo Zhao, [address] [facility] [address] [place] [address] Obstetrics 04/21/22 Director Of Cardiac Cath Lab Relationship Specialty Start Date End Date Magdy Larios, ODD JOBS DAY WORKER.SUPPLY CHAIN ANALYST [address] [place] [address] PCP - General Internal Medicine 07/18/17 Deo Zhao, [address] [facility] [address] [place] [address] Obstetrics 04/21/22 FOR RECORDS PERTAINING TO PATIENTS WHO ARE OR HAVE BEEN ENROLLED IN A CHEMICAL DEPENDENCY/SUBSTANCEABUSE PROGRAM, SOME INFORMATION MAY BE OMITTED. This clinical summary was aggregated from multiple sources. Caution should be exercised in using it in the provision of clinical care. This summary normalizes information from multiple sources, and as a consequence, information in this document may materially change the coding, format and clinical context of patient data. In addition, data may be omitted in some cases. CLINICAL DECISIONS SHOULD BE BASED ON THE PRIMARY CLINICAL RECORDS. [facility] [employer] [facility]. provides no warranty or guarantee of the accuracy or completeness of information in this document.
--- NOTE | 2024-11-15 08:34 | CA.SCORE ---
Calcium Scoring Date of Study:: 11/14/24 Indications Indications: Abnormal EKG Coronary Calcium Scoring: High-resolution Computed Tomographic imaging of the chest was performed on [11/14/24 ], with particular attention paid to the coronary arteries. Images from the examination were analyzed for the presence and extent of coronary artery calcification , using coronary calcium quantification software. The patient tolerated the procedure well and there were no complications. The results of the coronary calcification analysis are provided below. Findings Coronary Artery Left Main (LM): 0 Left Anterior Descending (LAD): 0 Left Circumflex (LCX): 0 Right Coronary Artery (RCA): 0 Total Agatston Score: 0 Percentile Rankin Calcium Scoring Interpretation: Different methods to categorize the overall amount of coronary plaque. Overall amount CAC SIS Visual of coronary plaque P1 Mild -100 <2 1-2 vessels with mild amount of plaque P2 Moderate 101-300 3-4 1-2 vessels with moderate amount, 3 vessels with mild amount of plaque P3 Severe 301-999 5-7 3 vessels with moderate amount, 1 vessel with severe amount of plaque P4 Extensive >1000 >8 2-3 vessels with severe amount of plaque Conclusion: Non atherosclerotic plaque
== END 2024-11-14 23:59 | disposition home or self-care (01) ==
PROVIDERS: PCP Nurse Practitioner Adult Health
DX: R94.31 Abnormal electrocardiogram [ECG] [EKG] (principal)
CPT/HCPCS: 75571; 76380